=== PATIENT | female | born 1945 | race Caucasian/White ===

== ENCOUNTER → 2016-06-27 | Outpatient (CLI) | payer OTHER, MEDICARE ==
--- NOTE | 2016-06-27 13:57 | DI ---
KUB and UPRIGHT ABDOMEN, 06/27/2016 12:15 PM: Clinical History: Abdominal pain. Previous Exam: 10/20/2014. The patient has had extensive lumbar surgery. There is a gas-filled structure in the region of the pe lvic inlet that shows a small fluid collection. This most likely is in a loop of sigmoid colon althou gh there is no mucosal marking to determine if this is colon or small bowel. There is no other dilate d loops of large or small bowel present. On the upright film, there is motion artifact so tiny amount s of free air could be missed. There are no abnormal radiodensities. Readin. There is an unusual collection of gas in the midline at the pelvic inlet. I cannot tell if this i s in large or small bowel but there is no dilatation of either large or small bowel present. A crosst able lateral film may be of help along with followup films in 6 hours if the patient has persistent s ymptoms. If this patient has significant abdominal symptoms, then a CT scan with IV contrast would be recommended. 2. Status post extensive lumbar surgery from L2-L5.
--- NOTE | 2016-06-27 17:35 | DI ---
CT ABDOMEN SCAN WITHOUT IV CONTRAST, 06/27/2016 3:04 PM : Clinical History: Abdominal pain. Previous Exam: None at this facility. Scans are performed from the lower lung bases through the liver and kidneys without IV contrast. Sagi ttal and coronal reformatted images are generated. The lung bases are clear. The liver is normal. The gallbladder is grossly normal. Both adrenal glands are normal. There is a low-density spherical lesion in the superior and lateral margin of the spleen that is associated with a punctate calcification. Both kidneys are normal in size, shape, position a nd contour. There is no hydronephrosis or hydroureter. No renal or ureteral calculi are present. Ther e are no abnormal retrocrural or periaortic nodes. No ascites is present. There is inflammatory/infil trative change involving the mesentery in the anterior aspect of the abdomen, probably the greater om entum. Similar changes involve probably represents the lateral magnum. The pancreas is normal in size but the anterior margin of the body of the pancreas is associated with the mesentery that appears in flamed. READIN. Inflammatory/infiltrative changes are present in what probably represent the greater and lesser o mentum. The pancreas itself appears normal although it is contiguous with the mesentery that shows th e inflammatory/infiltrative change. 2. There is a roughly 15 mm spherical low-density lesion in the subcapsular region of the spleen tow elvis the upper half. This is also associated with a focus of calcification. CT PELVIS SCAN WITHOUT IV CONTRAST, 06/27/2016 3:04 PM : Clinical History: See above. Previous Exam: 04/13/2015. Scans are performed from the inferior margin of the liver and kidneys to the symphysis pubis without IV contrast. There is no free fluid collection and there is no adenopathy. The appendix is not visualized but ther e is no inflammatory mass either in the cecal tip or in the right lower quadrant. The small bowel, te rminal ileum, and ileocecal valve are normal. There is a 10 cm diameter spherical gas-filled collecti on just to the right of midline in the lower abdomen. This does have a single haustrum and presumably is a localized dilated portion of large bowel and less likely small bowel. It is contiguous with por tions of small bowel as well as the midportion of the sigmoid colon. Diverticula are present in the s igmoid colon without definite evidence of diverticulitis. There are no hernias. The uterus and both o varies are atrophic but normal. READIN. There is a 10 cm gas-filled spherical lesion in the lower abdomen just to the right of midline an d this is the same gas filled structure that was seen on the plain films. It does appear to have a fo ld that may represent a haustrum and therefore may be part of the sigmoid colon. There is only a mini mal amount of inflammatory/infiltrative change in the mesentery along the left lateral margin of this gas structure but this is probably extending from the inflammatory process seen in the upper abdomen associated with the mesentery. 2. If further evaluation is required, then a CT scan of the abdomen and pelvis with oral and rectal contrast and preferably with IV contrast if possible would be recommended.
== END ==
LOC: MOB RAD 12:32
DX: R10.84 Generalized abdominal pain (principal); R30.0 Dysuria
CPT/HCPCS: 74020; 74176; 87077; 87088; 87186

== ENCOUNTER 2016-06-28 15:34 | Emergency (ER) | payer OTHER, MEDICARE ==
[2016-06-28] MEDS ORDERED: Sodium Chloride 0.9% 1,000 ML PRIMARY IV ONE (15:44)
--- NOTE | 2016-06-28 15:52 | PDOC ---
Abdomen/Flank HPI - General Chief Complaint: Abdomen Pain Stated Complaint: abdominal pain Date Seen by Provider: 06/28/16 Time Seen by Provider: 15:47 Source: POSITIVE: Patient, RN/MD Exam Limitations: POSITIVE: No limitations Nurse's Notes Reviewed & Considered: Yes - History of Present Illness Initial Comments: Patient comes in today for evaluation of abdominal pain and elevated white count. Patient was seen at the infectious disease doctor's office, Dr. Alex Robertson, and was found to have an increase of her white count from 19,000 to 27, 000 today. She said increasing abdominal pain and discomfort since her CT scan done yesterday. CT scan was reported yesterday is equivocal. Patient denies any fever or chills or sweats, she does have epigastric abdominal pain that was initially sharp in nature, is now migrated to the right lower quadrant. She denies any nausea vomiting or diarrhea, no hematuria or dysuria, no rashes. Patient has a history of colovesical fistula and chronic urinary tract infections. Body Location Affected: REPORTS: Abdomen Timing: REPORTS: Changing Over Time, Getting Worse Duration: >24 hours Severity: Moderate Quality: REPORTS: "Pain", Sharpness, Throbbing Abdominal Pain Radiation: REPORTS: RLQ, Epigastric Context: REPORTS: None Modifying Factors: improves with: Nothing Associated Symptoms: REPORTS: Denies symptoms Similar Symptoms Previously: Yes Recent Care Received: REPORTS: Recently Seen Any Prior Injuries Related to Current Complaint?: No - Patient Home Medications Home Medications: Home Medications Albuterol Sulfate [Ventolin Hfa] 2 puff INH Q4-6H PRN #2 inhaler 05/29/15 Albuterol Neb Soln 0.083% 1 each NEB Q4-6H #30 vial 07/03/15 Mv,Ca,Min/Iron Fum/FA/Vit K [Essential Woman Tablet] 1 each PO DAILY 09/24/15 Potassium Chloride [K-Dur] 40 meq PO BID 09/24/15 Febuxostat [Uloric] 40 mg PO DAILY #30 10/04/15 Atorvastatin Calcium [Lipitor] 1 tab PO QHS #30 tab 11/15/15 predniSONE Tab [Deltasone Tab] 1 tab PO BID #60 tab 03/15/16 Digoxin 0.5 tab PO QD #30 tab 03/28/16 Clopidogrel Bisulfate [Plavix] 1 tab PO QD #30 tab 05/06/16 Furosemide 1 - 1.5 tab PO BID #75 tab 05/06/16 Montelukast Sodium [Singulair] 1 tab PO QD #30 tab 05/06/16 Omeprazole 1 cap PO QD #30 cap 06/14/16 Hydrocodone Bit/Acetaminophen [[place] 5-325 Tablet] 1 tab PO Q4-6H #60 tab - Patient Allergies Allergies/Adverse Reactions: Allergies Allergy/AdvReac Type Severity Reaction Status Date / Time aspirin Allergy Severe SHORTNESS Verified 06/28/16 15:45 OF BREATH Penicillins Allergy Severe Anaphylaxis Verified 06/28/16 15:45 lactose AdvReac DIARRHEA Verified 06/28/16 15:45 Past Medical History - heen HEENT History: Other (please comment) Additional HEENT History: Nasal Polyps, removed, WEARS GLASSES- glasses not here , as she has lost them Cardiovascular History: Hypertension, CHF, Hyperlipidemia Respiratory History: Asthma Gastrointestinal History: GERD, Irritable Bowel Syndrome Genitourinary History: Denies History Endocrine History: Denies History Musculoskeletal History: Arthritis, Gout, Back Pain, Back Injury, Joint Pain, Other (please comment) Prosthesis or Implant: No Additional Musculoskeletal History: BACK SURGERY IN January 2012 Neurological History: Denies History Blood Disorders: Denies History Psychiatric History: Denies History History of Sexually Transmitted Diseases: No Cancer History: Denies History History of MDRO: Yes History of Other Communicable Diseases: No Alcohol Use: Rarely Substance Use Type: None Previous Surgical History: Yes Type / Date of Surgery: Back surgery twice, the last time in 2011 they had to remove previous hardware, Nasal polypectomy ~1989, Appendectomy 1960, TONSILLECTOMY Anesthesia Reactions: No Malignant Hyperthermia: No Significant Family History: Heart disease, COPD Additional Family History: none ROS - Limitations ROS Limitations: No Limitations Constitution: REPORTS: Denies Symptoms Cardiovascular: REPORTS: Denies Cardiac Symptoms Respiratory: REPORTS: Denies Resp Symptoms Neurological: REPORTS: Denies Neuro Symptoms Gastrointestinal: REPORTS: Abdominal Pain Endocrine: REPORTS: Denies Symptoms Musculoskeletal: REPORTS: Denies MS Symptoms Genitourinary: REPORTS: Denies Symptoms Eyes: REPORTS: Denies Symptoms ENT: REPORTS: Denies Symptoms Skin: REPORTS: Denies Skin Symptoms Lympathic: REPORTS: Denies Lympathic Symptoms Immunologic: POSITIVE: Denies Symptoms Psychiatric: POSITIVE: Denies Psych Symptoms Abdominal/Flank Pain PE - General Appearance General Appearance: POSITIVE: Alert, Cooperative, No Acute Distress, No Evidence of Trauma - HEENT HEENT: POSITIVE: Head Inspection Nml, Eyes Inspection Nml, Ears Inspection Nml, Nose Inspection Nml, PERRL, EOMI - Neck Neck: POSITIVE: Normal Inspection, No Apparent Injury - Respiratory Respiratory: POSITIVE: No Respiratory Distress, Breath Sounds Normal, Chest Non- Tender - Cardiovascular Cardiovascular: POSITIVE: Regular Rate and Rhythm, Heart Sounds Normal - Chest Chest: POSITIVE: Non Tender - Abdomen Abdomen: Soft: (All Quadrants), Normal Bowel Sounds: (All Quadrants), No Splenomegaly: (All Quadrants), No Hepatomegaly: (All Quadrants), No Guarding: ( All Quadrants), No Rebound: (All Quadrants), No Palpable Pulse: (All Quadrants) , No Palpabale Mass: (All Quadrants), No Rigidity: (All Quadrants), Tenderness Noted: (RLQ), Distention: (All Quadrants) - Back Back: POSITIVE: Normal Inspection - Skin Skin: POSITIVE: Intact, Normal For Race, Warm, Dry, No Rash - Extremities Extremity: Non-Tender: (All Extremities), Normal ROM: (All Extremities), Normal Inspection: (All Extremities) - Neurological Neurological: POSITIVE: Affect Apporpriate, Oriented X3 - Psychological Psychiatric: POSITIVE: Affect Appropriate, Mood Appropriate Abdomen Progress - Results Reviewed by me Xrays/CTs/US Reviewed by me: Yes Discussed with Radiologist: Yes Lab Results Reviewed: Yes Lab Results:: Laboratory Results 06/28/16 06/28/16 06/28/16 Range/Units 16:02 16:05 17:15 WBC 25.04 H (4.8-10.8) 10^3/uL RBC 4.64 (4.20-5.40) 10^6/uL Hgb 11.9 L (12.0-16.0) g/dL Hct 37.2 (37.0-47.0) % MCV 80.2 L (81-99) FL MCH 25.6 L (27-31) PG MCHC 32.0 L (33-37) g/dL RDW Std Deviation 48.8 (39-50) fL RDW Coeff of Jackson 16.9 H (11.5-14.5) % Plt Count 257 (140-350) 10*3/uL MPV 11.0 (7.4-12.2) FL Immature Gran % (Auto) 0.7 (0-5) % Neut % (Auto) 86.4 H (50-80) % Lymph % (Auto) 5.3 L (10-50) % Terry % (Auto) 7.4 (5-15) % Eos % (Auto) 0 (0-8) % Baso % (Auto) 0.2 (0-1) % Immature Gran # (Auto) 0.18 10*3/UL Neut # (Auto) 21.63 10*3/UL Lymph # (Auto) 1.32 10*3/uL Terry # (Auto) 1.86 H (0.3-0.8) 10*3/UL Eos # (Auto) 0 10*3/UL Baso # (Auto) 0.05 10*3/UL WBC Morphology Comment See comments (NORM) Plt Morphology Comment Normal morphology (NORM) RBC Morph Comment Normal morphology (NORM) VBG pH 7.59 H (7.32-7.42) VBG pCO2 32 L (45-55) mmHg VBG HCO3 31 H (22-26) mmol/L VBG Base Excess 9 H (-2-2) MMOL/L Sodium 134 L (135-145) meq/L Potassium 3.5 L (3.8-5.2) meq/L Chloride 91 L (98-112) meq/L Carbon Dioxide 29 (23-33) meq/L Anion Gap 14 (5-20) BUN 16 (7-22) mg/dL Creatinine 0.6 (0.50-1.20) mg/dL Estimated GFR > 60 (>60 ml/min/1.73m(2)) BUN/Creatinine Ratio 26.66 H (6-20) Glucose 159 H (78-110) mg/dL Calculated Osmolality 281.0 (267-292) mOsm/kg Lactic Acid 2.4 H (0.70-2.10) MMOL/L Calcium 9.1 (8.7-10.7) mg/dL Magnesium 1.7 (1.6-2.4) mg/dL Total Bilirubin 0.8 (0.3-1.2) mg/dL AST 24 (8-39) IU/L ALT 33 (9-52) IU/L Alkaline Phosphatase 99 (38-126) IU/L Total Protein 6.5 (6.1-8.0) g/dL Albumin 3.5 (3.5-4.8) g/dL Globulin 3.0 (2.50-4.10) g/dL Albumin/Globulin Ratio 1.10 L (1.3-2.0) mg/g Amylase 64 (30-110) U/L Lipase 482 H (23-300) IU/L - Patient's Progress Pain Medication Addressed: POSITIVE: Not Applicable Re-examine Time: 17:15 Status: POSITIVE: Improved MDM / ED Course: The patient examined, IV started, but mostly, radiographic studies obtained. Patient received 1 L of normal saline, and Zofran. She stated her pain was a 3/ 10 and did not require pain medication. Laboratory findings: CBC shows white count elevated to greater than 25. CT scan shows inflammatory changes with dilated loop of bowel of uncertain etiology. Assessment: Abdominal pain with elevated white count and inflammatory changes per CT scan. Colovesicle fistula. Plan: Admission, Invanz, surgical consult. Patient refused admission. Based on the patient's clinical appearance I am discharging her with instructions to return in 24 hours for her next dose of Invanz, urine culture, and repeat lipase. Dr. Dugan is the on-call surgeon, had seen this patient in consultation here in the emergency department. He stated this is not an emergent surgical issue and she does not need his services. In addition he doesn't feel that we have adequate surgical coverage for the colovesical fistula that she needs repaired. - Consult Consult (If Yes, Name of Consulting MD & Time Called): Yes (Dr. Bynum 17:15) Consulting MD will see pt:: POSITIVE: [facility] [place] Admit Counseled: POSITIVE: Patient, RE: Lab Results, RE: Radiology Results, RE: DX Patient Care Time - Estimated PCT Patient Care Time (In Minutes): 45 Vital Signs - Recent Vital Signs Vital Signs: Vital Signs (Last 8 hours) Temp Pulse Resp BP Pulse Ox 06/28/16 15:53 97.1 F 96 12 105/71 93 - VS Reviewed Vital Signs Reviewed: Yes Discharge Clinical Impression: Abdominal pain Discharge Disposition: Discharged to Home Condition: Stable Follow Up With: CHANTAL SCHULTZ [Primary Care Provider] -
[2016-06-28 16:00] VITALS: RESP 12; TEMP 97.1
[2016-06-28] MEDS ORDERED: Ertapenem Inj 1 GM in Sodium Chloride 0.9% 100 ML IV SCH (16:00)
[2016-06-28] MEDS ORDERED: Sodium Chloride 0.9% 50 ML IV PRN (16:00)
[2016-06-28] MEDS ORDERED: HEPARIN 500 UNIT/5 ML SYRINGE FOR CENTRAL LINE IVP PRN (16:00)
[2016-06-28] MEDS ORDERED: NORMAL SALINE 10 ML SYRINGE FLUSH IVP PRN (16:00)
[2016-06-28 16:18] LABS: ASPARTATE AMINO TRANSFERASE 24 IU/L (8-39); BILIRUBIN,TOTAL 0.8 mg/dL (0.3-1.2); BLOOD UREA NITROGEN 16 mg/dL (7-22); BUN/CREATININE RATIO 26.66 (6-20); CALCIUM 9.1 mg/dL (8.7-10.7); CHLORIDE 91 meq/L (98-112); CREATININE 0.6 mg/dL (0.50-1.20); EOSINOPHILS % (AUTO) 0 % (0-8); EST GLOMERULAR FILTRATION > 60 (>60 ml/min/1.73m(2)); GLUCOSE 159 mg/dL (78-110); IMM GRAN# (AUTO) 0.18 10*3/UL; LACTATE 2.4 MMOL/L (0.70-2.10); MAGNESIUM 1.7 mg/dL (1.6-2.4); POTASSIUM 3.5 meq/L (3.8-5.2); RDW COEFFICIENT OF VARIATION 16.9 % (11.5-14.5); SODIUM 134 meq/L (135-145); TOTAL PROTEIN 6.5 g/dL (6.1-8.0)
[2016-06-28 16:20] LABS: BASOPHILS # (AUTO) 0.05 10*3/UL; BASOPHILS % (AUTO) 0.2 % (0-1); HEMATOCRIT 37.2 % (37.0-47.0); HEMOGLOBIN 11.9 g/dL (12.0-16.0); IMM GRAN % (AUTO) 0.7 % (0-5); LYMPHOCYTES # (AUTO) 1.32 10*3/uL; LYMPHOCYTES % (AUTO) 5.3 % (10-50); MEAN CORPUSCULAR HEMOGLOBIN 25.6 PG (27-31); MONOCYTES # (AUTO) 1.86 10*3/UL (0.3-0.8); MONOCYTES % (AUTO) 7.4 % (5-15); NEUTROPHILS # (AUTO) 21.63 10*3/UL; NEUTROPHILS % (AUTO) 86.4 % (50-80); RED BLOOD COUNT 4.64 10^6/uL (4.20-5.40); WHITE BLOOD COUNT 25.04 10^3/uL (4.8-10.8)
[2016-06-28 16:32] LABS: PLATELET MORPHOLOGY COMMENT NORMAL MORPHOLOGY (NORM)
[2016-06-28 17:22] LABS: AMYLASE 64 U/L (30-110)
--- NOTE | 2016-06-28 17:56 | DI ---
CT ABDOMEN SCAN WITH IV CONTRAST, 06/28/2016 3:44 PM : Clinical History: Abdominal pain. Elevated white count compared to 24 hours earlier. Previous Exam: 06/27/2016. Scans are performed from the lower lung bases through the liver and kidneys with IV contrast. 70 ml o f Isovue 300 was injected IV. No oral or rectal contrast was utilized, but the patient did receive lo w-density barium contrast orally at the end of the noncontrast study performed on 06/27/2016, in antic ipation of an IV contrast study on that day. The IV contrast study was not ordered. The lung bases are clear. The liver is normal. The gallbladder is grossly normal. Both adrenal glands and the spleen are unchanged. The previously noted 15 mm spherical low-density lesion with the perip heral calcification shows a CT density of approximately 15-16 Hounsfield units. Measurement of the le yaneth on the noncontrast study gives a CT value in the range of 16-17 Hounsfield units. This would imp ly that the lesion did not enhance and is of slightly higher density than water. It would be consiste nt with a cyst filled with proteinaceous debris. The pancreas in the region of the body may be slight ly less defined than the day before. The previously noted inflammatory/infiltrative change in the mes entery inferior to the stomach has decreased slightly but there is still persistence of that pattern at the level of the large gas bubble. Both kidneys are normal in size, shape, position and contour. T here is no hydronephrosis or hydroureter. No renal or ureteral calculi are present. There are no abno rmal retrocrural or periaortic nodes. No ascites is present. READIN. There may be slightly more peripancreatic inflammatory/infiltrative change that on the study from the day before, but this is marginal at most. The infiltrative/inflammatory change in the mesentery corresponding to the greater and lesser omentum is probably slightly less. 2. The remainder of the study is unchanged. The 15 mm lesion in the spleen shows no change in densit y in this consistent with a cyst filled with proteinaceous debris. CT PELVIS SCAN WITH IV CONTRAST, 06/28/2016 3:44 PM: Clinical History: See above. Previous Exam: 06/27/2016. Scans are performed from just superior to the umbilicus to the symphysis pubis with IV contrast. This is the same bolus of contrast used for the CT scans of the abdomen. The gas-filled structure in the right lower quadrant is basically unchanged. There does appear to be a haustrum and it remains contiguous with a portion of the sigmoid colon. The anterior portion of the gas-filled structure is thicker and less defined than on the day before and this was suggest inflamm atory changes have developed. The exact origin of this gas bubble still cannot be definitely assigned to either the colon or small bowel. The appendix is not identified with certainty but there is no in flammatory mass in the cecum or in the right lower quadrant. The small bowel, terminal ileum, and ile ocecal valve are normal. The remainder of the colon is unremarkable. Sigmoid colon diverticula are pr esent without interval development of diverticulitis. There are no hernias but there is extensive jaiden stases recti. The uterus and both ovaries are atrophic but normal. There is an air-fluid level in the bladder in this patient has a known colovesicular fistula. READIN. The gas-filled structure in the right lower quadrant show slightly more inflammatory/infiltrative change since the day before but the exact origin of this lesion is uncertain. 2. There is sigmoid colon diverticulosis but definite diverticulitis is felt not to be present. 3. Gas is present in the bladder consistent with the history of a known colovesicular fistula.
--- NOTE | 2016-06-28 19:46 | CONSULT ---
Consult Note - Consult Consult Date: 06/28/16 Reason for Consult: Other (Emergency room consultation.) Requesting Physician: Dr. Bae Primary Care Provider: Leonardo Coppola MD - History of Present Illness History of Present Illness: Patient is a 71-year-old female who reports problem started yesterday. She had a sharp epigastric pain with pain to her back. She felt quite bloated. She went to the open access clinic and was evaluated. Her white count was elevated but it is chronically elevated. She had a CAT scan last night which showed some inflammatory changes in the upper abdomen near the pancreas but no evidence of pancreatitis. There was a large 10 cm air bubble near her sigmoid colon in the lower abdomen. She had a urine specimen sent at the clinic. It shows greater than 100,000 gram-negative rods. Patient tells me she has not had a bladder infection for some time. She was not admitted last night but followed up with infectious disease today. Apparently because her white count elevation she was told to be evaluated at the emergency room. 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 CT scan today shows this large air bubble which is persistent. There is still air in her bladder. There is more inflammatory changes in the lower abdomen near this air bubble. At the present time he feels okay. She does feel bloated. She has no appetite. She reports her bowels have been moving. She has some abdominal tenderness but it is less than yesterday. Patient has had a known colovesical fistula since late 2014. She was scheduled for an operation in [place] by general surgery and urology but it was canceled because of an ejection fraction in the 25% range. She is scheduled to see a surgeon on Friday for evaluation of her colovesical fistula. Dr. Coppola's note from May notes her ejection fraction is now 55%. Patient was on Eliquis but is no longer. She is on Plavix at this time. Patient has had recurrent bouts of diverticulitis. To my review this air pocket near her sigmoid colon was present in April 2015. It was not present in 2012 when she had a CT scan for diverticulitis. It was smaller. It appears to be a saccular collection of air. There is no free air. The radiologist is not available to review this but I'm sure this air collection was there then. There is air in her bladder and that has been present on her last several CAT scans. Of note all of her CT scans show a lack of abdominal musculature. She has a wide diastases. She has never had abdominal surgery. It appears she has a large hernia in her lower abdomen. Patient's white count has been chronically elevated. On May 272015 and was 21,000. On June 05 was 20,000, on June 12 was 21,000, this morning at 10 AM it was 30,000, this afternoon at 4 PM its 25,000. Patient is on chronic steroids. The emergency room physician ordered a lipase which is elevated at 482. Again her urine from yesterday shows 100,000 gram-negative rods. Identification and sensitivities are still pending. Patient does not appear to have an acute surgical problem at this time. She's been given a dose of Invanz. She has an elevation of her lipase which may indicate a mild pancreatitis. She has a known colovesical fistula. She has a bladder infection at this time. She does not appear toxic. Patient tells me infectious disease doctor that she should be hospitalized for antibiotics over the weekend and then discharged for outpatient follow-up to see the surgeon in [place] on Friday. Because of her multiple problems she is not a candidate for surgical intervention at our institution. We do not have the resources to adequately care for her. I told the emergency room doctor it is up to him and the hospitalist whether they want to admit her or transfer her at this time. It appears she would benefit from bowel rest, sequential lab tests, and IV antibiotics. Review of Systems - Gastrointestinal Gastrointestinal / Abdominal: REPORTS: Abdominal Pain Past Medical History Medical History: 1. History asthma Quit smoking 20 years. 2. History of gout. 3. History of for recent admission to the hospital for cellulitis was transferred to [facility]. 4. Congestive heart failure secondary to systolic dysfunction. 5. Coronary artery disease had a stent inserted recently at [facility]. 6. History of acute diverticulitis last year, it sounded that she has a bladder fistula and she was supposed to have surgery this July but was canceled because of heart failure. #7 hypertension. #8 Diastases rectus. #9 chronic colovesical fistula. #10 history of diverticulitis. 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 Tonsillectomy and adenoidectomy. Appendectomy. Colonoscopy. Upper endoscopy. Sinus surgery. Tobacco Use: Never Smoker Substance Use Type: None Medication / Allergies Home Medications: Home Medications Medication Instructions Recorded Confirmed Type Albuterol Sulfate [Ventolin Hfa] 2 puff INH Q4-6H PRN #2 inhaler 05/29/15 Clinic Albuterol Neb Soln 0.083% 1 each NEB Q4-6H #30 vial 07/03/15 06/28/16 Clinic Mv,Ca,Min/Iron Fum/FA/Vit K 1 each PO DAILY 09/24/15 06/28/16 History [Essential Woman Tablet] Potassium Chloride [K-Dur] 40 meq PO BID 09/24/15 06/28/16 History Febuxostat [Uloric] 40 mg PO DAILY #30 10/04/15 06/28/16 Clinic Atorvastatin Calcium [Lipitor] 1 tab PO QHS #30 tab 11/15/15 06/28/16 Clinic predniSONE Tab [Deltasone Tab] 1 tab PO BID #60 tab 03/15/16 06/28/16 Clinic Digoxin 0.5 tab PO QD #30 tab 03/28/16 06/28/16 Clinic Clopidogrel Bisulfate [Plavix] 1 tab PO QD #30 tab 05/06/16 06/28/16 Clinic Furosemide 1 - 1.5 tab PO BID #75 tab 05/06/16 06/28/16 Clinic Montelukast Sodium [Singulair] 1 tab PO QD #30 tab 05/06/16 06/28/16 Clinic Omeprazole 1 cap PO QD #30 cap 06/14/16 06/28/16 Clinic Hydrocodone Bit/Acetaminophen 1 tab PO Q4-6H #60 tab 06/17/16 06/28/16 Clinic [Roxie 5-325 Tablet] Allergies/Adverse Reactions: Allergies Allergy/AdvReac Type Severity Reaction Status Date / Time aspirin Allergy Severe SHORTNESS Verified 06/28/16 15:45 OF BREATH Penicillins Allergy Severe Anaphylaxis Verified 06/28/16 15:45 lactose AdvReac DIARRHEA Verified 06/28/16 15:45 Exam - Vitals Vital Signs: Vital Signs Temperature 97.1 F Temperature Source Temporal Artery Scan Pulse Rate [Pulse Oximeter] 96 Respiratory Rate 12 Blood Pressure [Left Arm] 105/71 Pulse Ox 93 Oxygen Delivery Method Room Air Height 5 ft 7 in Weight 75.75 kg - General General Appearance: POSITIVE: No Acute Distress, Cooperative - Respiratory Respiratory Exam: POSITIVE: Clear to Auscultation - Bilaterally, Breathing Non Labored - Cardiovascular Cardiovascular Exam: POSITIVE: RRR, No Murmur - GI/Abdominal GI/Abdominal Exam: POSITIVE: Normal Bowel Sounds, Soft Additional GI/Abdominal Exam Details: Abdomen is protuberant. No significant abdominal wall musculature. She has a protuberant abdomen. It is mildly diffusely tender. No peritoneal signs. She is quite obese. - Rectal Rectal Exam: POSITIVE: Deferred - Neurological Neurological Exam: POSITIVE: Alert, Oriented x 3 - Psychiatric Psychiatric Exam: POSITIVE: Normal Affect, Normal Mood - Integumentary Integumentary Exam: POSITIVE: Normal Color, Warm, Dry Results - Labs CBC and BMP: 06/28/16 16:05 06/28/16 16:05 Labs - Last 24 Hours: Laboratory Results 06/28/16 06/28/16 06/28/16 Range/Units 16:02 16:05 17:15 WBC 25.04 H (4.8-10.8) 10^3/uL RBC 4.64 (4.20-5.40) 10^6/uL Hgb 11.9 L (12.0-16.0) g/dL Hct 37.2 (37.0-47.0) % MCV 80.2 L (81-99) FL MCH 25.6 L (27-31) PG MCHC 32.0 L (33-37) g/dL RDW Std Deviation 48.8 (39-50) fL RDW Coeff of Jackson 16.9 H (11.5-14.5) % Plt Count 257 (140-350) 10*3/uL MPV 11.0 (7.4-12.2) FL Immature Gran % (Auto) 0.7 (0-5) % Neut % (Auto) 86.4 H (50-80) % Lymph % (Auto) 5.3 L (10-50) % Page % (Auto) 7.4 (5-15) % Eos % (Auto) 0 (0-8) % Baso % (Auto) 0.2 (0-1) % Immature Gran # (Auto) 0.18 10*3/UL Neut # (Auto) 21.63 10*3/UL Lymph # (Auto) 1.32 10*3/uL Page # (Auto) 1.86 H (0.3-0.8) 10*3/UL Eos # (Auto) 0 10*3/UL Baso # (Auto) 0.05 10*3/UL WBC Morphology Comment See comments (NORM) Plt Morphology Comment Normal morphology (NORM) RBC Morph Comment Normal morphology (NORM) VBG pH 7.59 H (7.32-7.42) VBG pCO2 32 L (45-55) mmHg VBG HCO3 31 H (22-26) mmol/L VBG Base Excess 9 H (-2-2) MMOL/L Sodium 134 L (135-145) meq/L Potassium 3.5 L (3.8-5.2) meq/L Chloride 91 L (98-112) meq/L Carbon Dioxide 29 (23-33) meq/L Anion Gap 14 (5-20) BUN 16 (7-22) mg/dL Creatinine 0.6 (0.50-1.20) mg/dL Estimated GFR > 60 (>60 ml/min/1.73m(2)) BUN/Creatinine Ratio 26.66 H (6-20) Glucose 159 H (78-110) mg/dL Calculated Osmolality 281.0 (267-292) mOsm/kg Lactic Acid 2.4 H (0.70-2.10) MMOL/L Calcium 9.1 (8.7-10.7) mg/dL Magnesium 1.7 (1.6-2.4) mg/dL Total Bilirubin 0.8 (0.3-1.2) mg/dL AST 24 (8-39) IU/L ALT 33 (9-52) IU/L Alkaline Phosphatase 99 (38-126) IU/L Total Protein 6.5 (6.1-8.0) g/dL Albumin 3.5 (3.5-4.8) g/dL Globulin 3.0 (2.50-4.10) g/dL Albumin/Globulin Ratio 1.10 L (1.3-2.0) mg/g Amylase 64 (30-110) U/L Lipase 482 H (23-300) IU/L - Imaging Status: Image Reviewed by Me (And discussed with the radiologist.), Report Reviewed by Me Assessment and Plan - Patient Problems (1) Urinary tract infection Current Visit: Yes Status: Acute Priority: High Diagnosis Date: 06/27/16 Comment: Greater than 100,000 gram-negative rods. Had a Proteus urinary tract infection in the past. He has been given a dose of Invanz. (2) Elevated lipase Current Visit: Yes Status: Acute Priority: Medium Diagnosis Date: 06/28/16 Comment: Some of her symptoms sound like a mild pancreatitis. Some inflammatory changes were seen in the pancreas on the CT scan. Would probably benefit from bowel rest and serial labs. (3) Colovesical fistula Current Visit: Yes Status: Chronic Priority: Low Comment: Chronic. Supposed to see a surgeon in [place] on Friday. This is been present for more than a year. (4) History of diverticulitis Current Visit: Yes Status: Chronic Priority: Low Comment: Some inflammatory changes near the colon. Possible early diverticulitis. (5) abnormal air collection in the abdomen Current Visit: Yes Status: Chronic Priority: Medium Comment: This also has been present for more than a year. It appears to be a saccular collection of air near her sigmoid colon. No evidence of free air. Certainly not an acute surgical abdomen. See history of present illness. - Time Time Spent With Patient: Greater Than 35 Mintues (I spent greater than an hour and a half reviewing the patient's clinic notes, current and past CAT scans, examining the patient and preparing this report. I also discussed this case with the hospitalist and the emergency room physician.)
== END 2016-06-28 21:04 | disposition home or self-care (01) ==
LOC: ER 15:34
DX: R10.13 Epigastric pain (principal); I10 Essential (primary) hypertension; R10.31 Right lower quadrant pain; E78.5 Hyperlipidemia, unspecified; I50.9 Heart failure, unspecified; Z87.440 Personal history of urinary (tract) infections
CPT/HCPCS: 36415; 74177; 80053; 82150; 82803; 83605; 83690; 83735; 85007; 85025; 87040; 96365; 99283; J1335; J7030; J7050

== ENCOUNTER → 2016-06-28 | Outpatient (CLI) | payer OTHER, MEDICARE ==
[2016-06-28 10:44] LABS: RDW COEFFICIENT OF VARIATION 17.1 % (11.5-14.5)
[2016-06-28 10:50] LABS: AMYLASE 81 U/L (30-110); ASPARTATE AMINO TRANSFERASE 32 IU/L (8-39); BLOOD UREA NITROGEN 15 mg/dL (7-22); CALCIUM 9.4 mg/dL (8.7-10.7); CHLORIDE 93 meq/L (98-112); CREATININE 0.5 mg/dL (0.50-1.20); EST GLOMERULAR FILTRATION > 60 (>60 ml/min/1.73m(2)); GLUCOSE 150 mg/dL (78-110); HEMATOCRIT 39.4 % (37.0-47.0); HEMOGLOBIN 12.5 g/dL (12.0-16.0); MEAN CORPUSCULAR HEMOGLOBIN 25.5 PG (27-31); MEAN CORPUSCULAR HGB CONC 31.7 g/dL (33-37); POTASSIUM 3.6 meq/L (3.8-5.2); RED BLOOD COUNT 4.91 10^6/uL (4.20-5.40); SODIUM 135 meq/L (135-145); TOTAL PROTEIN 6.8 g/dL (6.1-8.0)
[2016-06-28 11:05] LABS: PLATELET MORPHOLOGY COMMENT NORMAL MORPHOLOGY (NORM)
[2016-06-28 11:10] LABS: BAND NEUTROPHILS % 4 % (0-10); LYMPHOCYTES % (MANUAL) 5 % (10-50); MONOCYTES % (MANUAL) 4 % (0-12); NEUTROPHILS % (MANUAL) 87 % (50-80)
[2016-06-28 11:11] LABS: BASOPHILS % (MANUAL) 0 % (0-1); EOSINOPHILS % (MANUAL) 0 % (0-8)
== END ==
LOC: LAB 10:15
PROVIDERS: ATTEND Internal Medicine Infectious Disease
DX: R10.84 Generalized abdominal pain (principal); R14.0 Abdominal distension (gaseous)
CPT/HCPCS: 36415; 80053; 82150; 83690; 85007

== ENCOUNTER → 2016-08-06 | Outpatient (CLI) | payer OTHER, MEDICARE ==
[2016-08-06 16:33] LABS: HEMATOCRIT 35.6 % (37.0-47.0); HEMOGLOBIN 10.8 g/dL (12.0-16.0); MEAN CORPUSCULAR HEMOGLOBIN 24.1 PG (27-31); MEAN CORPUSCULAR HGB CONC 30.3 g/dL (33-37); MEAN PLATELET VOLUME 11.9 FL (7.4-12.2); RDW COEFFICIENT OF VARIATION 16.8 % (11.5-14.5); RED BLOOD COUNT 4.49 10^6/uL (4.20-5.40); WHITE BLOOD COUNT 15.99 10^3/uL (4.8-10.8)
[2016-08-06 16:44] LABS: HEMOGLOBIN A1C 6.44 % (4.2-6.0); MEAN BLOOD GLUCOSE (CALC) 128.452 mg/dL
[2016-08-06 16:52] LABS: ASPARTATE AMINO TRANSFERASE 21 IU/L (8-39); BILIRUBIN,TOTAL 0.4 mg/dL (0.3-1.2); BLOOD UREA NITROGEN 26 mg/dL (7-22); BUN/CREATININE RATIO 43.33 (6-20); CALCIUM 10.1 mg/dL (8.7-10.7); CHLORIDE 100 meq/L (98-112); CREATININE 0.6 mg/dL (0.50-1.20); EST GLOMERULAR FILTRATION > 60 (>60 ml/min/1.73m(2)); GLUCOSE 106 mg/dL (78-110); POTASSIUM 4.7 meq/L (3.8-5.2); SODIUM 139 meq/L (135-145); TOTAL PROTEIN 6.6 g/dL (6.1-8.0)
[2016-08-06 17:36] LABS: PLATELET MORPHOLOGY COMMENT NORMAL MORPHOLOGY (NORM)
[2016-08-06 17:37] LABS: BAND NEUTROPHILS % 2 % (0-10); BASOPHILS % (MANUAL) 0 % (0-1); EOSINOPHILS % (MANUAL) 0 % (0-8); LYMPHOCYTES % (MANUAL) 7 % (10-50); METAMYELOCYTES % 0 %; MONOCYTES % (MANUAL) 4 % (0-12); MYELOCYTES % 0 %; NEUTROPHILS % (MANUAL) 87 % (50-80); PROMYELOCYTES % 0 %
== END ==
LOC: MOB LAB 14:53
DX: E11.9 Type 2 diabetes mellitus without complications (principal); K65.1 Peritoneal abscess; M10.9 Gout, unspecified; I10 Essential (primary) hypertension; E78.5 Hyperlipidemia, unspecified
CPT/HCPCS: 36415; 80053; 83036; 84550; 85007

== ENCOUNTER → 2016-08-29 | Outpatient (CLI) | payer OTHER, MEDICARE | LOC: MMPC 09:00 | DX: A31.8 Other mycobacterial infections (principal); M10.9 Gout, unspecified; R73.9 Hyperglycemia, unspecified; E55.9 Vitamin D deficiency, unspecified; J45.909 Unspecified asthma, uncomplicated; I25.10 Atherosclerotic heart disease of native coronary artery without angina pectoris; I48.0 Paroxysmal atrial fibrillation; E78.5 Hyperlipidemia, unspecified; E79.0 Hyperuricemia without signs of inflammatory arthritis and tophaceous disease | CPT/HCPCS: 99213; G0463 ==

== ENCOUNTER → 2016-09-16 | Outpatient (CLI) | payer OTHER, MEDICARE ==
[2016-09-16 13:17] LABS: BLOOD UREA NITROGEN 21 mg/dL (7-22); CALCIUM 9.1 mg/dL (8.7-10.7); EST GLOMERULAR FILTRATION > 60 (>60 ml/min/1.73m(2))
[2016-09-16 14:23] LABS: HEMATOCRIT 34.6 % (37.0-47.0); HEMOGLOBIN 10.3 g/dL (12.0-16.0); MEAN CORPUSCULAR HGB CONC 29.8 g/dL (33-37); MEAN CORPUSCULAR VOLUME 77.2 FL (81-99); MEAN PLATELET VOLUME 11.6 FL (7.4-12.2); RED BLOOD COUNT 4.48 10^6/uL (4.20-5.40)
[2016-09-16 14:24] LABS: BASOPHILS % (AUTO) 0.5 % (0-1); EOSINOPHILS % (AUTO) 0.2 % (0-8); LYMPHOCYTES # (AUTO) 0.87 10*3/uL; NEUTROPHILS # (AUTO) 10.81 10*3/UL; NEUTROPHILS % (AUTO) 82.7 % (50-80)
[2016-09-16 14:25] LABS: BASOPHILS # (AUTO) 0.06 10*3/UL; EOSINOPHILS # (AUTO) 0.02 10*3/UL; MONOCYTES # (AUTO) 0.79 10*3/UL (0.3-0.8); WBC MORPHOLOGY COMMENT NORMAL MORPHOLOGY (NORM)
[2016-09-16 14:26] LABS: PLATELET MORPHOLOGY COMMENT NORMAL MORPHOLOGY (NORM); RBC MORPHOLOGY COMMENT SEE COMMENTS (NORM)
== END ==
LOC: MOB LAB 11:19
DX: D50.9 Iron deficiency anemia, unspecified (principal); I50.21 Acute systolic (congestive) heart failure; I48.0 Paroxysmal atrial fibrillation; A31.8 Other mycobacterial infections; I25.10 Atherosclerotic heart disease of native coronary artery without angina pectoris; J45.909 Unspecified asthma, uncomplicated; I10 Essential (primary) hypertension; E78.5 Hyperlipidemia, unspecified; E55.9 Vitamin D deficiency, unspecified; E79.0 Hyperuricemia without signs of inflammatory arthritis and tophaceous disease
CPT/HCPCS: 36415; 80048; 80162; 82728; 83540; 83550; 83880; 85025; 99213; G0463

== ENCOUNTER → 2016-09-24 | Outpatient (CLI) | payer OTHER, MEDICARE ==
[~2016-09-24] MED LIST: ALBUTEROL SULFATE 2.5 MG/3 ML NEB ONE
== END ==
LOC: RT 11:08
DX: A31.8 Other mycobacterial infections (principal)
CPT/HCPCS: 94640

== ENCOUNTER 2016-10-01 09:09 | Outpatient (CLI) | payer OTHER, MEDICARE ==
[~2016-10-01 09:09] MED LIST changes: -ALBUTEROL SULFATE 2.5 MG/3 ML NEB ONE; +HEPARIN 500 UNIT/5 ML SYRINGE FOR CENTRAL LINE IVP PRN; +Iron Sucrose Inj 500 MG in Sodium Chloride 0.9% 250 ML IV ONE; +LIDOCAINE W/ SODIUM BICARB 0.5 ML SYR SUBD PRN; +NORMAL SALINE 10 ML SYRINGE FLUSH IVP PRN
[2016-10-01 10:17] VITALS: RESP 20; TEMP 97.8
== END 2016-10-01 16:00 | disposition home or self-care (01) ==
LOC: IV THERAPY 09:09
PROVIDERS: ATTEND Family Medicine
DX: D50.9 Iron deficiency anemia, unspecified (principal)
CPT/HCPCS: 96365; 96366; 99211; J1756; J7050

== ENCOUNTER → 2016-10-02 | Outpatient (CLI) | payer OTHER, MEDICARE | LOC: MMPC 11:11 | DX: A31.8 Other mycobacterial infections (principal); I50.21 Acute systolic (congestive) heart failure; E79.0 Hyperuricemia without signs of inflammatory arthritis and tophaceous disease; J45.909 Unspecified asthma, uncomplicated; I25.10 Atherosclerotic heart disease of native coronary artery without angina pectoris; I48.0 Paroxysmal atrial fibrillation; E66.9 Obesity, unspecified; E78.5 Hyperlipidemia, unspecified; E55.9 Vitamin D deficiency, unspecified; D50.9 Iron deficiency anemia, unspecified | CPT/HCPCS: 99213; G0463 ==

== ENCOUNTER 2016-10-10 13:17 | Outpatient (CLI) | payer OTHER, MEDICARE ==
[2016-10-10] MEDS ORDERED: NORMAL SALINE 10 ML SYRINGE FLUSH IVP PRN (13:24)
[2016-10-10 13:30] VITALS: RESP 18; TEMP 98.3
[2016-10-10] MEDS ORDERED: Iron Sucrose Inj 500 MG in Sodium Chloride 0.9% 250 ML IV ONE (13:45)
== END 2016-10-10 17:00 | disposition home or self-care (01) ==
LOC: LAB 13:17 → IV THERAPY 13:17
DX: D50.9 Iron deficiency anemia, unspecified (principal)
CPT/HCPCS: 96365; 96366; 99211; J1756; J7050

== ENCOUNTER → 2016-10-21 | Outpatient (CLI) | payer OTHER, MEDICARE ==
--- NOTE | 2016-10-21 10:23 | DI ---
LEFT SHOULDER, 10/21/2016 9:24 AM: Clinical History: Acute left shoulder pain. Previous Exam: None at this facility. 3 views are submitted. There is no acute soft tissue, osseous, or joint abnormality. There is a calci fic density in the region of the bicipital groove seen only on the axillary view and this may represe nt calcific tendinitis. Because there are some calcifications at the tip of the acromion, those calci fications may be superimposed over the area of the bicipital groove. Soft tissue calcifications are p resent in proximity to the cortex of the proximal humeral shaft anterolaterally. These calcifications may be related to prior trauma or possibly calcified phleboliths. The visualized portions of the lef t lung and apex are normal. Readin. There is a calcific density in proximity to the bicipital groove on the axillary projection. This may represent calcific tendinitis or possibly bony spurring associated with the acromion. 2. The remainder of the examination is normal.
== END ==
LOC: MOB LAB 09:25
DX: M25.512 Pain in left shoulder (principal)
CPT/HCPCS: 73030

== ENCOUNTER → 2016-10-29 | Outpatient (CLI) | payer OTHER, MEDICARE | LOC: MMPC 10:00 | PROVIDERS: ATTEND Physician Assistant | DX: S46.912A Strain of unspecified muscle, fascia and tendon at shoulder and upper arm level, left arm, initial encounter (principal); M75.42 Impingement syndrome of left shoulder | CPT/HCPCS: 99213; G0463 ==

== ENCOUNTER → 2016-10-30 | Outpatient (CLI) | payer OTHER, MEDICARE ==
[2016-10-30 11:53] LABS: BLOOD UREA NITROGEN 19 mg/dL (7-22); CALCIUM 8.9 mg/dL (8.7-10.7); EST GLOMERULAR FILTRATION > 60 (>60 ml/min/1.73m(2)); URIC ACID 6.3 mg/dl (2.5-7.5)
[2016-10-30 12:09] LABS: BASOPHILS # (AUTO) 0.14 10*3/UL; BASOPHILS % (AUTO) 0.7 % (0-1); EOSINOPHILS # (AUTO) 0.08 10*3/UL; EOSINOPHILS % (AUTO) 0.4 % (0-8); HEMATOCRIT 41.6 % (37.0-47.0); MEAN CORPUSCULAR HEMOGLOBIN 25.9 PG (27-31); MEAN CORPUSCULAR HGB CONC 31.3 g/dL (33-37); MEAN CORPUSCULAR VOLUME 82.9 FL (81-99); NEUTROPHILS # (AUTO) 16.78 10*3/UL; NEUTROPHILS % (AUTO) 83.6 % (50-80); PLATELET MORPHOLOGY COMMENT NORMAL MORPHOLOGY (NORM); RBC MORPHOLOGY COMMENT SEE COMMENTS (NORM); RED BLOOD COUNT 5.02 10^6/uL (4.20-5.40); WBC MORPHOLOGY COMMENT NORMAL MORPHOLOGY (NORM)
== END ==
LOC: MOB LAB 10:45
DX: R73.9 Hyperglycemia, unspecified (principal); M10.9 Gout, unspecified; D64.9 Anemia, unspecified; L97.529 Non-pressure chronic ulcer of other part of left foot with unspecified severity; A31.8 Other mycobacterial infections; E78.5 Hyperlipidemia, unspecified; I10 Essential (primary) hypertension; I50.21 Acute systolic (congestive) heart failure; J45.909 Unspecified asthma, uncomplicated; I25.10 Atherosclerotic heart disease of native coronary artery without angina pectoris; E66.9 Obesity, unspecified; E55.9 Vitamin D deficiency, unspecified; M15.8 Other polyosteoarthritis
CPT/HCPCS: 36415; 80048; 84550; 85025; 99213; G0463

== ENCOUNTER → 2016-11-13 | Outpatient (CLI) | payer OTHER, MEDICARE | LOC: MMPC 11:11 | DX: A31.8 Other mycobacterial infections (principal); R73.9 Hyperglycemia, unspecified; I25.10 Atherosclerotic heart disease of native coronary artery without angina pectoris; I50.21 Acute systolic (congestive) heart failure; J45.909 Unspecified asthma, uncomplicated; E66.9 Obesity, unspecified; E55.9 Vitamin D deficiency, unspecified; E78.5 Hyperlipidemia, unspecified; I48.91 Unspecified atrial fibrillation | CPT/HCPCS: 83037; 99213; G0463 ==

== ENCOUNTER → 2016-11-27 | Outpatient (CLI) | payer OTHER, MEDICARE | LOC: MMPC 10:00 | PROVIDERS: ATTEND Physician Assistant | DX: M75.42 Impingement syndrome of left shoulder (principal) | CPT/HCPCS: 99212; G0463 ==

== ENCOUNTER → 2016-12-09 | Outpatient (CLI) | payer OTHER, MEDICARE ==
[~2016-12-09] MED LIST changes: +ALBUTEROL SULFATE 2.5 MG/3 ML NEB ONE; -HEPARIN 500 UNIT/5 ML SYRINGE FOR CENTRAL LINE IVP PRN; -Iron Sucrose Inj 500 MG in Sodium Chloride 0.9% 250 ML IV ONE; -LIDOCAINE W/ SODIUM BICARB 0.5 ML SYR SUBD PRN; -NORMAL SALINE 10 ML SYRINGE FLUSH IVP PRN
== END ==
LOC: RT 10:46
DX: J44.9 Chronic obstructive pulmonary disease, unspecified (principal)
CPT/HCPCS: 94640

== ENCOUNTER → 2016-12-24 | Outpatient (CLI) | payer OTHER, MEDICARE ==
--- NOTE | 2016-12-24 12:47 | DI ---
XR ELBOW COMPLETE MIN 3VW,12/24/2016 12:17 PM: Clinical History: Right elbow pain. Previous Exam: January 08, 2014 Findings: 3 views of the right elbow are obtained, and demonstrate anatomic alignment without fractures. There are some calcifications within the posterior soft tissues. There is no evidence of elbow joint effusion. There is no fracture identified. Impression: No acute fractures identified. If pain persists or worsens, consider repeat imaging in 7-10 days or MRI.
== END ==
LOC: MOB RAD 12:19
PROVIDERS: ATTEND Physician Assistant
DX: M25.521 Pain in right elbow (principal)
CPT/HCPCS: 73080; 99212

== ENCOUNTER → 2016-12-27 | Outpatient (CLI) | payer OTHER, MEDICARE | LOC: MMPC 11:11 | DX: M70.21 Olecranon bursitis, right elbow (principal); J45.909 Unspecified asthma, uncomplicated; A31.8 Other mycobacterial infections; I50.21 Acute systolic (congestive) heart failure; I25.10 Atherosclerotic heart disease of native coronary artery without angina pectoris; R73.9 Hyperglycemia, unspecified; E78.5 Hyperlipidemia, unspecified; E55.9 Vitamin D deficiency, unspecified | CPT/HCPCS: 99213; G0463 ==

== ENCOUNTER 2017-01-02 11:52 | Emergency (ER) | payer OTHER, MEDICARE ==
[2017-01-02] MEDS ORDERED: Sodium Chloride 0.9% 1,000 ML PRIMARY IV ONE ×2 (12:09→21:30)
[2017-01-02] MEDS ORDERED: NORMAL SALINE 10 ML SYRINGE FLUSH IVP PRN (12:09)
--- NOTE | 2017-01-02 12:24 | EKG ---
[address] [place] [address] Measurements Intervals Lambert Rate: 108 P: CT: 0 QRS: -28 QRSD: 152 T: 36 QT: 304 QTc: 368 Interpretive Statements ATRIAL FIBRILLATION WITH RAPID VENTRICULAR RESPONSE BORDERLINE LEFT AXIS DEVIATION [QRS AXIS < -20] RIGHT BUNDLE BRANCH BLOCK [120+ ms QRS DURATION, UPRIGHT V1, 40+ ms S IN I/aVL/V4/V5/V6] POSSIBLE LEFT VENTRICULAR HYPERTROPHY [VOLTAGE CRITERIA PLUS LAE OR QRS WIDENING] ST DEPRESSION, CONSIDER SUBENDOCARDIAL INJURY [0.1+ mV ST DEPRESSION] Compared to ECG 03/19/2016 17:00:06 Atrial flutter no longer present Ventricular premature complex(es) no longer present ST (T wave) deviation still present Electronically Signed On 01-02-17 13:15:09 MDT by Leonardo Polk MD [email or web address]
[2017-01-02 12:50] LABS: HEMATOCRIT 37.8 % (37.0-47.0); HEMOGLOBIN 12.3 g/dL (12.0-16.0); MEAN CORPUSCULAR HEMOGLOBIN 28.4 PG (27-31); MEAN CORPUSCULAR HGB CONC 32.5 g/dL (33-37); MEAN CORPUSCULAR VOLUME 87.3 FL (81-99); MEAN PLATELET VOLUME 10.7 FL (7.4-12.2); RED BLOOD COUNT 4.33 10^6/uL (4.20-5.40)
[2017-01-02] MEDS ORDERED: Sodium Chloride 0.9% 500 ML PRIMARY IV ONE (12:59)
[2017-01-02 13:03] LABS: BLOOD UREA NITROGEN 13 mg/dL (7-22); CALCIUM 8.2 mg/dL (8.7-10.7); EST GLOMERULAR FILTRATION > 60 (>60 ml/min/1.73m(2)); MAGNESIUM 1.4 mg/dL (1.6-2.4)
--- NOTE | 2017-01-02 13:12 | PDOC ---
General Adult HPI - General Chief Complaint: General Medical Stated Complaint: GENERAL MALAISE Date Seen by Provider: 01/02/17 Time Seen by Provider: 12:00 Source: POSITIVE: Patient Exam Limitations: POSITIVE: No limitations Nurse's Notes Reviewed & Considered: Yes EMS Report Reviewed & Considered: Verbal - History of Present Illness Initial Comment: The patient is a 71-year-old female who is brought to the emergency department by ambulance with increased weakness and general malaise. She reports that for the past several days she has just not felt well in general. She is weak and has generalized aches. She recently has been treated for some swelling in her right elbow suspected to be olecranon bursitis. She had an attempted drainage of this several days ago at Dr. Coppola's office. She states that the swelling in the elbow has actually gone down. She denies any chest pain, increased abdominal pain, urinary symptoms or any other associated complaints. She has had subjective chills at home and has the sweats. She does report some mild increase in shortness of breath as well. EMS was called to transport the patient here to the emergency department. When they arrived initially her blood pressure was in the 60s systolic. She did receive a 500 mL bolus of normal saline in route. Have you received a tetanus shot in the past 10 years?: Unknown - Patient Home Medications Home Medications: Home Medications Albuterol Sulfate [Ventolin Hfa] 2 puff INH Q4-6H PRN #2 inhaler 05/29/15 Albuterol Neb Soln 0.083% 1 each NEB Q4-6H #30 vial 07/03/15 Mv,Ca,Min/Iron Fum/FA/Vit K [Essential Woman Tablet] 1 each PO DAILY 09/24/15 Febuxostat [Uloric] 40 mg PO DAILY #30 10/04/15 Atorvastatin Calcium [Lipitor] 1 tab PO QHS #30 tab 11/15/15 Digoxin 0.5 tab PO QD #30 tab 03/28/16 Allopurinol 1 tab PO QD #30 tab 08/07/16 Pentamidine Powder Inh [Nebupent Powder Inh] 300 mg INH MONTHLY #1 vial predniSONE Tab [Deltasone Tab] 1 tab PO BID #60 tab 09/27/16 Clopidogrel Bisulfate [Plavix] 1 tab PO QD #30 tab 10/29/16 Potassium Chloride 1 - 2 tab PO TID #90 tab 11/04/16 Furosemide [Lasix] 1.5 tab PO QD #45 tab 11/13/16 Metoprolol Succinate [Toprol Xl] 1 tab PO QD #30 tab 11/13/16 Montelukast Sodium [Singulair] 1 tab PO QD #30 tab 12/05/16 Omeprazole 1 cap PO QD #30 cap 12/05/16 Hydrocodone/Acetaminophen [Hydrocodon-Acetaminoph 7.5-325] 1 tab PO Q6H PRN #30 tab 12/17/16 - Patient Allergies Allergies/Adverse Reactions: Allergies Allergy/AdvReac Type Severity Reaction Status Date / Time aspirin Allergy Severe SHORTNESS Verified 01/02/17 11:55 OF BREATH Penicillins Allergy Severe Anaphylaxis Verified 01/02/17 11:55 lactose AdvReac DIARRHEA Verified 01/02/17 11:55 Past Medical History - heen HEENT History: Denies History, Other (please comment) Additional HEENT History: Nasal Polyps, removed, WEARS GLASSES- glasses not here , as she has lost them Cardiovascular History: Hypertension, CHF, Hyperlipidemia Respiratory History: Asthma Gastrointestinal History: GERD, Irritable Bowel Syndrome Genitourinary History: Denies History Additional Genitourinary History: colovesicular fistula Endocrine History: Denies History Musculoskeletal History: Arthritis, Gout, Back Pain, Back Injury, Joint Pain, Other (please comment) Prosthesis or Implant: No Additional Musculoskeletal History: BACK SURGERY IN January 2012 Neurological History: Denies History Blood Disorders: Denies History Psychiatric History: Denies History History of Sexually Transmitted Diseases: No Female Reproductive History: Denies History Obstetrical History: Denies History Cancer History: Denies History In Past Year Been Physically Harmed or Verbally Threatened: No History of MDRO: Yes History of Other Communicable Diseases: No Tobacco Use: Former Smoker Alcohol Use: Rarely Substance Use Type: None Previous Surgical History: Yes Type / Date of Surgery: Back surgery twice, the last time in 2011 they had to remove previous hardware, Nasal polypectomy ~1989, Appendectomy 1960, TONSILLECTOMY Anesthesia Reactions: No Malignant Hyperthermia: No Significant Family History: Heart disease, COPD Additional Family History: none Past Medical History Reviewed: Reviewed - No Changes ROS - Limitations ROS Limitations: No Limitations Constitution: REPORTS: Chills. DENIES: Fever Cardiovascular: DENIES: Chest Pain, Heart Racing, Heart Palpitations, Edema Respiratory: REPORTS: Shortness Of Breath. DENIES: Cough Non Productive, Cough Productive, Hurts To Breathe Neurological: REPORTS: Dizziness, Other (Generalized weakness). DENIES: Headache, Numbness, Weakness Gastrointestinal: REPORTS: Other (She has a colostomy which is been working normally). DENIES: Abdominal Pain, Nausea, Vomitting Endocrine: REPORTS: Fatigue Musculoskeletal: REPORTS: Back Pain (Chronic back pain), Muscle Aches Genitourinary: DENIES: Dysuria, Difficulty Urinating Eyes: REPORTS: Denies Symptoms ENT: REPORTS: Denies Symptoms Skin: DENIES: Rash General Adult Exam - General Appearance General Appearance: POSITIVE: Alert, Cooperative, No Acute Distress, Other (She does appear acutely ill) - HEENT HEENT: POSITIVE: Head Inspection Nml, Eyes Inspection Nml, Ears Inspection Nml, Pharynx Inspect. Nml, Dry Mucous Membranes - Neck Neck: POSITIVE: Normal Inspection. NEGATIVE: Lymphadenopathy - Respiratory Respiratory: POSITIVE: No Respiratory Distress, Breath Sounds Normal - Cardiovascular Cardiovascular: POSITIVE: Regular Rate & Rhythm, No Murmur Peripheral Pulses: Dorsalis-pedis (R): 2+, Dorsalis-pedis (L): 2+ - Abdomen Abdomen: Soft: (All Quadrants), Denies Tenderness: (All Quadrants), No Distention: (All Quadrants) Additional Abdominal Details: Colostomy is present - Back Back: POSITIVE: Normal Inspection - Skin Skin: POSITIVE: Normal Color, No Rash - Extremities Additional Extremities Details: Right elbow does reveal some mild swelling with fluid accumulation consistent with olecranon bursitis, there is no surrounding induration - Neurological / Psychological Neurological: POSITIVE: Oriented X3, Motor Normal, Sensation Normal, Other (No focal neurologic deficits) General Adult Progress - Results Reviewed by me Xrays/CTs/US Reviewed by me: Yes Discussed with Radiologist: Yes Radiology Findings: CT scan of the chest abdomen pelvis done without contrast reveals a 9.4 cm lesion within the bowel in her abdomen, no free air or free fluid per radiologist. Lab Results Reviewed: Yes Lab Results:: Laboratory Results 01/02/17 01/02/17 Range/Units 12:47 13:33 WBC 25.52 H (4.8-10.8) 10^3/uL RBC 4.33 (4.20-5.40) 10^6/uL Hgb 12.3 (12.0-16.0) g/dL Hct 37.8 (37.0-47.0) % MCV 87.3 (81-99) FL MCH 28.4 (27-31) PG MCHC 32.5 L (33-37) g/dL RDW Std Deviation 59.3 H (39-50) fL RDW Coeff of Jackson 18.7 H (11.5-14.5) % Plt Count 245 (140-350) 10*3/uL MPV 10.7 (7.4-12.2) FL Neutrophils % (Manual) 89 H (50-80) % Band Neutrophils % 1 (0-10) % Lymphocytes % (Manual) 5 L (10-50) % Monocytes % (Manual) 4 (0-12) % Eosinophils % (Manual) 1 (0-8) % Basophils % (Manual) 0 (0-1) % Metamyelocytes % 0 % Myelocytes % 0 % Promyelocytes % 0 % Blast Cells 0 (0-1) % WBC Morphology Comment Normal morphology (NORM) Plt Morphology Comment Normal morphology (NORM) RBC Morph Comment See comments (NORM) Sodium 131 L (135-145) meq/L Potassium 2.9 L (3.8-5.2) meq/L Chloride 95 L (98-112) meq/L Carbon Dioxide 27 (23-33) meq/L Anion Gap 9 (5-20) BUN 13 (7-22) mg/dL Creatinine 0.5 (0.50-1.20) mg/dL Estimated GFR > 60 (>60 ml/min/1.73m(2)) BUN/Creatinine Ratio 26.00 H (6-20) Glucose 179 H (78-110) mg/dL Calculated Osmolality 275.0 (267-292) mOsm/kg Lactic Acid 1.7 (0.70-2.10) MMOL/L Calcium 8.2 L (8.7-10.7) mg/dL Magnesium 1.4 L (1.6-2.4) mg/dL Total Bilirubin 0.9 (0.3-1.2) mg/dL AST 25 (8-39) IU/L ALT 43 (9-52) IU/L Alkaline Phosphatase 133 H (38-126) IU/L Total Creatine Kinase < 20 L (30-136) IU/L Troponin I 0.035 (< 0.040) ng/mL C-Reactive Protein 23.5 H (0.0-0.9) mg/dL NT-Pro-B Natriuret Pep 914 H (0-125) PG/ML Total Protein 5.9 L (6.1-8.0) g/dL Albumin 3.0 L (3.5-4.8) g/dL Globulin 2.9 (2.50-4.10) g/dL Albumin/Globulin Ratio 1.00 L (1.3-2.0) mg/g TSH 2.75 (0.2700-4.2000) uIU/mL Ur Collection Type Cath specimen Urine Color Yellow Urine Clarity Slightly cloudy (CLEAR) Urine pH 5.5 (5.0-8.5) Ur Specific [place] 1.020 (1.005-1.030) Urine Protein Trace (NEG) mg/dl Urine Glucose (UA) Negative (NEG) mg/dL Urine Ketones Negative (NEG) Urine Occult Blood Small H (NEG) Urine Nitrate Negative (NEG) Urine Bilirubin Small (NEG) Urine Urobilinogen 0.2 (0.2) EU/dL Ur Leukocyte Esterase Negative (NEG) Urine RBC 3-5 (NONE) /hpf Urine WBC 3-5 (NONE) Ur Squamous Epith Cells Rare (NONE) Ur Renal Epithelial Cell None (NONE) Urine Crystals None Urine Bacteria Many (NONE) Urine Casts Rare (NONE) Urine Mucus None (NONE) Urine Trichomonas None (NONE) Urine Yeast None (NONE) Ur Culture Indicated? Culture set Digoxin 0.9 (0.8-2.0) ng/mL EKG Interpreted/Reviewed By Me:: Yes EKG Interpretation:: POSITIVE: Other (EKG shows sinus tachycardia with right bundle branch block, no acute ST segment or T-wave changes, unchanged from previous EKG except for she previously was in a flutter) - Patient's Progress MDM / ED Course: Blood cultures and lactate were drawn. The patient received an additional 500 mL bolus of normal saline. Her blood pressure at that point improved into the 100 systolically. Lab work revealed an elevated white count at 25,000. In reviewing her old records her white blood cell count has been elevated anywhere from 15-30,000 over the past several years. Her CRP is significantly elevated over 20 as well. This was in the normal range several months ago. Her magnesium, potassium and sodium are also low. A catheter UA reveals only 3-5 whites with many bacteria, culture is pending. The patient does have a complicated medical history and is immunosuppressed on prednisone. She appears to have early sepsis. Her lactate initially was normal. Her blood pressure did respond to bolus of fluids. She was also given cefepime 2 g IV and vancomycin 1 g IV. I did discuss the patient with Dr. Bynum. Initially he had felt that the patient would benefit from transfer to higher level of care. I had discussed this recommendation with the patient and she was adamant about staying here and [place] if at all possible. Dr. Bynum subsequently came and talked with the patient as well as with Dr. Coppola who is the patient's primary care provider. He had recommended doing a CT scan of her chest, abdomen and pelvis to rule out potential surgery requiring issues or other source of infection. Initially this was attempted with IV contrast however her IV blew. She is a very difficult IV start an IV was reestablished so that antibiotics could be finished. She subsequently underwent CT of the chest abdomen pelvis without IV contrast. This did show a 9.4 cm fluid-filled lesion in the bowel which most likely represents an abscess. I did discuss the patient again with Dr. Bynum and he recommended transfer back to [place] where she had her previous surgeries. I also discussed the patient with Dr. Trimble here who is the general surgeon habilitation worker here and he agreed that the patient should be transferred. I subsequently contacted [facility] and spoke with Dr. Jany Pulliam who is on-call for general surgery as well as Dr. Middleton in the emergency room. They were on able to accept the patient because the hospital was on divert and it was unclear how long they would be on divert. Their recommendation was transferred to [place]. I subsequently discussed this with the patient. She preferred to try to go to [place]. The hospitalist in [place] was unwilling to accept the patient and recommended that she stay here and [place]. I subsequently contacted Dr. Okeefe who is the surgeon on-call at [facility] in [place]. She was willing to accept the patient in transfer. Because of the distance involved in transfer and the potential for significant decline in this patient decision was made to send the [facility] to [place] [facility]. Arrangements were made to send her via fixed wing. The patient was in agreement with this plan. By the time all of her workup had been complete the patient had been here in our emergency room for quite some time. The patient had not taken any of her regular medications. She was given her regular dose of prednisone and digoxin as well as her potassium as her potassium was low as well. Other medications were held for now. - Consult Counseled: POSITIVE: Patient, RE: Lab Results, RE: Radiology Results, RE: DX Patient Care Time - Estimated PCT Patient Care Time (In Minutes): 85 Vital Signs - Recent Vital Signs Vital Signs: Vital Signs (Last 8 hours) Temp Pulse Resp BP Pulse Ox 01/02/17 14:01 98.8 F 101 H 16 93/61 95 01/02/17 13:30 107 H 102/50 95 - VS Reviewed Vital Signs Reviewed: Yes Discharge Clinical Impression: Sepsis, Congestive heart failure, Steroid-dependent asthma, Hypokalemia, Hypomagnesemia, Intra-abdominal abscess Discharge Disposition: Transferred to Tertiary Care Facility Condition: Serious Date Decision to Transfer to Another Facility: 01/02/17 Time Decision to Transfer to Another Facility: 20:35
[2017-01-02 13:20] LABS: C-REACTIVE PROTEIN 23.5 mg/dL (0.0-0.9); PLATELET MORPHOLOGY COMMENT NORMAL MORPHOLOGY (NORM); RBC MORPHOLOGY COMMENT SEE COMMENTS (NORM); WBC MORPHOLOGY COMMENT NORMAL MORPHOLOGY (NORM)
[2017-01-02 13:21] LABS: BAND NEUTROPHILS % 1 % (0-10); EOSINOPHILS % (MANUAL) 1 % (0-8); LYMPHOCYTES % (MANUAL) 5 % (10-50); MONOCYTES % (MANUAL) 4 % (0-12); NEUTROPHILS % (MANUAL) 89 % (50-80)
[2017-01-02 13:22] LABS: BASOPHILS % (MANUAL) 0 % (0-1); METAMYELOCYTES % 0 %; MYELOCYTES % 0 %; PROMYELOCYTES % 0 %
--- NOTE | 2017-01-02 13:40 | DI ---
XR CXR 1VW,01/02/2017 12:09 PM: Clinical History: Weakness and shortness of breath. Previous Exam: January 08, 2014 Findings: A single frontal radiograph of the chest is obtained, and demonstrate clear lungs. The cardiomediasti num and bony thorax are unremarkable. Impression: Normal chest.
[2017-01-02 13:50] LABS: BILIRUBIN,URINE SMALL (NEG); CLARITY,URINE Slightly Cloudy (CLEAR); COLOR,URINE YELLOW; GLUCOSE, URINE (UA) NEGATIVE (NEG); NITRATE,URINE NEGATIVE (NEG); OCCULT BLOOD,URINE SMALL (NEG); PH,URINE 5.5 (5.0-8.5); PROTEIN,URINE TRACE mg/dl (NEG); UROBILINOGEN,URINE 0.2 EU/dL (0.2)
[2017-01-02 13:56] LABS: BACTERIA,URINE MANY; SQUAMOUS EPITHELIAL CELL,UR RARE; URINE CASTS RARE
[2017-01-02 13:57] LABS: URINE SAMPLE TYPE CATH SPECIMEN
[2017-01-02] MEDS ORDERED: Cefepime Inj 2 GM in Sodium Chloride 0.9% 100 ML IV ONE (14:17)
[2017-01-02] MEDS ORDERED: Magnesium Sulfate 2gm (Premix) 2 GM in Premix 1 BAG IV ONE (14:25)
[2017-01-02] MEDS ORDERED: HYDROcodone-APAP 7.5 MG-325 MG TABLET PO ONE (17:56)
--- NOTE | 2017-01-02 19:22 | DI ---
HISTORY: Elevated WBC. COMPARISON: None. TECHNIQUE: Contiguous axial unenhanced images of the chest, abdomen and pelvis were obtained from th e lung bases through the ischial tuberosities. The images were then submitted for interpretation. FINDINGS: The study is limited by the absence of contrast. There is no mediastinal adenopathy. There is desiccation along the breast tissues. There is consult ation of the aortic knuckle. The cardiac silhouette is borderline enlarged. There is coronary arter y calcification. There is no hilar or axillary adenopathy. There is no pleural or pericardial effusion. The trachea, main, and segmental bronchi demonstrate no endobronchial lesions. There is no focal pulmonary nodule, or pulmonary mass. The liver, spleen, pancreas, gallbladder, both kidneys, and both adrenal glands demonstrate no acute findings. There is a nonspecific hypodensity in the periphery of the spleen measuring approximately 1.6 cm on s eries 4 image 30, there is of uncertain significance. MRI could be considered. There is thickening of the GE junction. There is atherosclerotic calcification of the aorta. The I VC is grossly unremarkable. The patient is status post posterior instrumentation, with surgical hardware in the spine causing win m hardening artifacts that limit the sensitivity exam. The uterus is small and atrophied. There is moderate to severe constipation. There is scattered col onic diverticulosis. There is a mass like lesion within the bowel noted in the mid abdomen on series 4 image 94 measuring 9.4 cm. There is no obstruction. The stomach is collapsed. There is no free air or free fluid. The urinary bladder is partially distended. The visualized osseous structures demonstrate diffuse and advanced degenerative change with multileve l surgery. There is no destructive abnormality. There is chondrocalcinosis. There is possibly a broad-based anterior abdominal wall hernia. IMPRESSION: 1. There is no mediastinal adenopathy. There is desiccation along the breast tissues. There is cons ultation of the aortic knuckle. The cardiac silhouette is borderline enlarged. There is coronary ar capo calcification. 2. There is a nonspecific hypodensity in the periphery of the spleen measuring approximately 1.6 cm o n series 4 image 30, there is of uncertain significance. MRI could be considered. 3. There is thickening of the GE junction. There is atherosclerotic calcification of the aorta. 4. The uterus is small and atrophied. There is moderate to severe constipation. There is scattered colonic diverticulosis. 5. There is a mass like lesion within the bowel noted in the mid abdomen on series 4 image 94 measuri ng 9.4 cm. There is no obstruction. The stomach is collapsed. 6. There is possibly a broad-based anterior abdominal wall hernia.
[2017-01-02] MEDS ORDERED: predniSONE Tab 10 MG TAB PO ONE (20:39)
[2017-01-02] MEDS ORDERED: DIGOXIN 125 MCG TABLET PO ONE (20:40)
[2017-01-02] MEDS ORDERED: POTASSIUM CHLORIDE 20 MEQ TAB PO ONE (20:41)
[2017-01-02] MEDS ORDERED: ONDANSETRON 4 MG/2 ML VIAL ONE (22:18)
[2017-01-02] MEDS ORDERED: ONDANSETRON 4 MG/2 ML VIAL IVP ONE (22:18)
[2017-01-02 23:00] VITALS: RESP 18; TEMP 98.4
[2017-01-03] MEDS ORDERED: Sodium Chloride 0.9% 1,000 ML ONE (03:17)
== END 2017-01-02 22:29 | disposition short-term general hospital (02) ==
LOC: ER 11:52
DX: K65.1 Peritoneal abscess (principal); A41.9 Sepsis, unspecified organism; I50.9 Heart failure, unspecified; D72.829 Elevated white blood cell count, unspecified; E83.42 Hypomagnesemia; E87.6 Hypokalemia; J45.998 Other asthma; M70.21 Olecranon bursitis, right elbow; R06.02 Shortness of breath; M79.1 Myalgia; R22.31 Localized swelling, mass and lump, right upper limb; R42 Dizziness and giddiness; R53.1 Weakness
CPT/HCPCS: 36415; 71010; 71250; 74176; 80053; 80162; 81001; 81003; 82550; 83605; 83735; 83880; 84443; 84484; 85007; 86140; 87077; 87088; 87186 ×2; 93005; 93010; 96361; 96365; 96366; 96367; 96375; 99285 ×2; J0692; J2405; J3370; J3475; J7512; J7050

== ENCOUNTER 2017-01-20 23:24 | Emergency (ER) | payer OTHER, MEDICARE ==
[2017-01-20] MEDS ORDERED: MORPHINE SULFATE 2 MG/1 ML IVP ONE (23:42)
[2017-01-20] MEDS ORDERED: ONDANSETRON 4 MG/2 ML VIAL IVP ONE (23:42)
[2017-01-20] MEDS ORDERED: Sodium Chloride 0.9% 500 ML PRIMARY IV ONE (23:42)
--- NOTE | 2017-01-20 23:45 | PDOC ---
Gen Adult / Medical Screen HPI - General Chief Complaint: General Medical Stated Complaint: doesn't feel good Date Seen by Provider: 01/20/17 Time Seen by Provider: 23:40 Source: POSITIVE: Patient Exam Limitations: POSITIVE: No limitations Nurse's Notes Reviewed & Considered: Yes - Indicators Temperature Between 95 and 101 Degrees: Yes Respirations Between 12 and 20: Yes Blood Pressure Between 100-165 (sys) and 60-100 (reece): Yes Pulse Range Between 60-105 (100 for age > 60 years): No (118) Severe Pain (Greater than 5/10 Reported): No Chest or Abdominal Pain: No Inability to Walk: Yes (weakness) Pt Reports Active High Risk Cond. (TB/Hepatitis/HIV/Chemo): No Abnormal Mental Status: No - History of Present Illness Initial Comments: This is a 71-year-old female who comes in today complaining of nausea and vomiting. This patient was just released yesterday from [facility] in [place] after having a pigtail drain placed in a right lower quadrant intra- abdominal abscess. Earlier this year patient had a colostomy placed at [facility]. She states she is having significant increase of weakness, nausea and vomiting for which she was discharged without nausea medicine, and increased malaise. Patient denies any headache, no fever chills or sweats, no diarrhea. She denies any hematuria or dysuria. She is presently on IV daptomycin and oral Biaxin. Body Location Affected: REPORTS: Chest, Abdomen Timing: REPORTS: Constant Duration: Unknown Similar Symptoms Previously: Yes Recent Care Received: REPORTS: Hospitalized Any Prior Injuries Related to Current Complaint?: No - Patient Home Medications Home Medications: Home Medications Albuterol Sulfate [Ventolin Hfa] 2 puff INH Q4-6H PRN #2 inhaler 05/29/15 Albuterol Neb Soln 0.083% 1 each NEB Q4-6H #30 vial 07/03/15 Mv,Ca,Min/Iron Fum/FA/Vit K [Essential Woman Tablet] 1 each PO DAILY 09/24/15 Digoxin 0.5 tab PO QD #30 tab 03/28/16 Allopurinol 1 tab PO QD #30 tab 08/07/16 Pentamidine Powder Inh [Nebupent Powder Inh] 300 mg INH MONTHLY #1 vial Clopidogrel Bisulfate [Plavix] 1 tab PO QD #30 tab 10/29/16 Potassium Chloride 1 - 2 tab PO TID #90 tab 11/04/16 Furosemide [Lasix] 1.5 tab PO QD #45 tab 11/13/16 Metoprolol Succinate [Toprol Xl] 1 tab PO QD #30 tab 11/13/16 Montelukast Sodium [Singulair] 1 tab PO QD #30 tab 12/05/16 Omeprazole 1 cap PO QD #30 cap 12/05/16 Hydrocodone/Acetaminophen [Hydrocodon-Acetaminoph 7.5-325] 1 tab PO Q6H PRN #30 tab 12/17/16 Clarithromycin [Biaxin] 500 mg PO BID 01/21/17 Prednisone 1 mg PO DAILY 01/21/17 Prednisone 5 mg PO DAILY 01/21/17 Prednisone 10 mg PO DAILY 01/21/17 - Patient Allergies Allergies/Adverse Reactions: Allergies Allergy/AdvReac Type Severity Reaction Status Date / Time aspirin Allergy Severe SHORTNESS Verified 01/20/17 23:33 OF BREATH Penicillins Allergy Severe Anaphylaxis Verified 01/20/17 23:33 lactose AdvReac DIARRHEA Verified 01/20/17 23:33 Past Medical History - heen HEENT History: Denies History, Other (please comment) Additional HEENT History: Nasal Polyps, removed, WEARS GLASSES- glasses not here , as she has lost them Cardiovascular History: Hypertension, CHF, Hyperlipidemia Respiratory History: Asthma Gastrointestinal History: GERD, Irritable Bowel Syndrome Genitourinary History: Denies History Additional Genitourinary History: colovesicular fistula Endocrine History: Denies History Musculoskeletal History: Arthritis, Gout, Back Pain, Back Injury, Joint Pain, Other (please comment) Prosthesis or Implant: No Additional Musculoskeletal History: BACK SURGERY IN January 2012 Neurological History: Denies History Blood Disorders: Denies History Psychiatric History: Denies History History of Sexually Transmitted Diseases: No Cancer History: Denies History History of MDRO: Yes History of Other Communicable Diseases: No Alcohol Use: Rarely Substance Use Type: None Previous Surgical History: Yes Type / Date of Surgery: Back surgery twice, the last time in 2011 they had to remove previous hardware, Nasal polypectomy ~1989, Appendectomy 1960, TONSILLECTOMY Anesthesia Reactions: No Malignant Hyperthermia: No Significant Family History: Heart disease, COPD Additional Family History: none ROS - Limitations ROS Limitations: No Limitations Constitution: REPORTS: Weakness Cardiovascular: REPORTS: Denies Cardiac Symptoms Respiratory: REPORTS: Shortness Of Breath Neurological: REPORTS: Denies Neuro Symptoms Gastrointestinal: REPORTS: Abdominal Pain Endocrine: REPORTS: Fatigue Musculoskeletal: REPORTS: Denies MS Symptoms Genitourinary: REPORTS: Denies Symptoms Eyes: REPORTS: Denies Symptoms ENT: REPORTS: Denies Symptoms Skin: REPORTS: Denies Skin Symptoms Lympathic: REPORTS: Denies Lympathic Symptoms Immunologic: POSITIVE: Denies Symptoms Psychiatric: POSITIVE: Denies Psych Symptoms Gen Adult/Medical Screen Exam - General Appearance General Appearance: POSITIVE: Alert, Cooperative, No Acute Distress, No Evidence of Trauma - HEENT HEENT: POSITIVE: Head Inspection Nml, Eyes Inspection Nml, Ears Inspection Nml, Nose Inspection Nml, Oral/Dental Inspect. Nml, Pharynx Inspect. Nml, PERRL, EOMI - Pupils Pupil Size: 4 mm: Bilateral - Neck Neck: POSITIVE: Normal Inspection, Thyroid Normal - Respiratory Respiratory: POSITIVE: No Respiratory Distress, Breath Sounds Normal, Chest Non- Tender - Cardiovascular Cardiovascular: POSITIVE: Regular Rate & Rhythm, No Murmur, No Gallop, PMI Normal - Abdomen Abdomen: Soft: (All Quadrants), Normal Bowel Sounds: (All Quadrants), Tenderness Noted: (LLQ), (RLQ) - Neurological / Psychological Mental Status: POSITIVE: Mood Normal, Affect Normal Orientation: POSITIVE: Oriented x 3 - Skin Skin: POSITIVE: Normal Color, Warm, Dry, No Rash - Extremities Extremity: Non-Tender: (All Extremities), Normal ROM: (All Extremities), Normal Inspection: (All Extremities), Pelvis Stable: (All Extremities) Procedures - Laceration/Wound Repair Did patient have a laceration repair: No Gen Adlt/Medical Scrn Progress - Results Reviewed by me Xrays/CTs/US Reviewed by me: Yes Discussed with Radiologist: Yes Lab Results Reviewed: Yes Lab Results:: Laboratory Results 01/20/17 01/21/17 Range/Units 23:58 01:00 WBC 17.08 H (4.8-10.8) 10^3/uL RBC 3.67 L (4.20-5.40) 10^6/uL Hgb 10.8 L (12.0-16.0) g/dL Hct 32.5 L (37.0-47.0) % MCV 88.6 (81-99) FL MCH 29.4 (27-31) PG MCHC 33.2 (33-37) g/dL RDW Std Deviation 50.7 H (39-50) fL RDW Coeff of Jackson 16.3 H (11.5-14.5) % Plt Count 388 H (140-350) 10*3/uL MPV 10.2 (7.4-12.2) FL Neutrophils % (Manual) 80 (50-80) % Band Neutrophils % 5 (0-10) % Lymphocytes % (Manual) 8 L (10-50) % Monocytes % (Manual) 2 (0-12) % Eosinophils % (Manual) 1 (0-8) % Basophils % (Manual) 0 (0-1) % Metamyelocytes % Not Reportable Myelocytes % 4 % Promyelocytes % Not Reportable Blast Cells Not Reportable WBC Morphology Comment Normal morphology (NORM) Plt Morphology Comment Normal morphology (NORM) RBC Morph Comment Normal morphology (NORM) Sodium 133 L (135-145) meq/L Potassium 3.2 L (3.8-5.2) meq/L Chloride 99 (98-112) meq/L Carbon Dioxide 25 (23-33) meq/L Anion Gap 9 (5-20) BUN 6 L (7-22) mg/dL Creatinine 0.5 (0.50-1.20) mg/dL Estimated GFR > 60 (>60 ml/min/1.73m(2)) BUN/Creatinine Ratio 12.00 (6-20) Glucose 104 (78-110) mg/dL Calculated Osmolality 273.0 (267-292) mOsm/kg Lactic Acid 1.0 (0.70-2.10) MMOL/L Calcium 8.9 (8.7-10.7) mg/dL Magnesium 1.6 (1.6-2.4) mg/dL Total Bilirubin 0.5 (0.3-1.2) mg/dL AST 11 (8-39) IU/L ALT 23 (9-52) IU/L Alkaline Phosphatase 85 (38-126) IU/L C-Reactive Protein 17.9 H (0.0-0.9) mg/dL NT-Pro-B Natriuret Pep 796 H (0-125) PG/ML Total Protein 6.1 (6.1-8.0) g/dL Albumin 2.9 L (3.5-4.8) g/dL Globulin 3.2 (2.50-4.10) g/dL Albumin/Globulin Ratio 0.90 L (1.3-2.0) mg/g Ur Collection Type Clean catch urine Urine Color Brown Urine Clarity Slightly cloudy (CLEAR) Urine pH 6.0 (5.0-8.5) Ur Specific [place] 1.020 (1.005-1.030) Urine Protein 100 (NEG) mg/dl Urine Glucose (UA) Negative (NEG) mg/dL Urine Ketones 15 (NEG) Urine Occult Blood Negative (NEG) Urine Nitrate Positive H (NEG) Urine Bilirubin Moderate (NEG) Urine Urobilinogen 0.2 (0.2) EU/dL Ur Leukocyte Esterase Trace (NEG) Urine RBC 1-3 (NONE) /hpf Urine WBC 1-4 (NONE) Ur Squamous Epith Cells Many (NONE) Ur Renal Epithelial Cell Moderate (NONE) Urine Crystals None Urine Bacteria Rare (NONE) Urine Casts Moderate (NONE) Urine Mucus Many (NONE) Urine Trichomonas None (NONE) Urine Yeast None (NONE) Ur Culture Indicated? Culture set - Patient's Progress Pain Medication Addressed: POSITIVE: Yes Re-Examine Time: 03:11 Status: POSITIVE: Improved MDM / ED Course: This patient was examined, an IV started, blood drawn and sent to the lab for studies, blood cultures obtained, radiographic examination via CT scan was obtained. Findings: CBC shows white count elevated at 17 hemoglobin is 10 hematocrit is 32. Comprehensive metabolic panel shows a sodium of 133 and a potassium of 3.2. CRP is elevated at 18. BNP is elevated at 800. Urinalysis shows rare bacteria and nitrite positive urine. CT scan of her abdomen shows a pigtail drain in the right lower quadrant with a fluid collection measuring 9 x 6 x 11 cm. Assessment: #1 intra-abdominal abscess with pigtail drain in place. #2 nitrite positive urine. #3 anemia. #4 global weakness with deconditioning. Plan: I have discussed the patient with Dr. Daniel Stephenson the on-call infectious disease specialist at [facility]. He is recommending no additional antibiotics at this time until he has had a chance to further evaluate the patient and plan her antibiotic coverage. I have discussed patient with the ER doctor at [facility], Dr. Reinier Doherty, who will be seeing this patient upon transfer. I further discussed the patient with Dr. Elliott, the on- call surgeon, who is recommending ER admission and consultation with the patient 's surgeon Dr. Kamaljit Taveras. Patient is being transferred via ground ambulance. - Consult Consult (If Yes, Name of Consulting MD & Time Called): Yes (Dr. Gardner [id number]) Consulting MD will see pt:: POSITIVE: Recommended Transfer Counseled: POSITIVE: Patient, RE: Lab Results, RE: Radiology Results, RE: DX Patient Care Time - Estimated PCT Patient Care Time (In Minutes): 90 Vital Signs - Recent Vital Signs Vital Signs: Vital Signs (Last 8 hours) Temp Pulse Resp BP Pulse Ox 01/20/17 23:41 98.8 F 118 H 18 114/79 92 - VS Reviewed Vital Signs Reviewed: Yes Discharge Clinical Impression: Intra-abdominal abscess post-procedure, Anemia, Physical deconditioning, Urinary tract infection after immobility Discharge Disposition: Transferred to Tertiary Care Facility Condition: Stable Date Decision to Transfer to Another Facility: 01/21/17 Time Decision to Transfer to Another Facility: 03:18
[2017-01-21 00:15] LABS: HEMATOCRIT 32.5 % (37.0-47.0); HEMOGLOBIN 10.8 g/dL (12.0-16.0); MEAN CORPUSCULAR HEMOGLOBIN 29.4 PG (27-31); MEAN CORPUSCULAR HGB CONC 33.2 g/dL (33-37); MEAN CORPUSCULAR VOLUME 88.6 FL (81-99); MEAN PLATELET VOLUME 10.2 FL (7.4-12.2); RED BLOOD COUNT 3.67 10^6/uL (4.20-5.40)
[2017-01-21 00:26] LABS: BLOOD UREA NITROGEN 6 mg/dL (7-22); CALCIUM 8.9 mg/dL (8.7-10.7); EST GLOMERULAR FILTRATION > 60 (>60 ml/min/1.73m(2)); MAGNESIUM 1.6 mg/dL (1.6-2.4); SERUM ALBUMIN 2.9 g/dL (3.5-4.8)
[2017-01-21 00:28] LABS: PLATELET MORPHOLOGY COMMENT NORMAL MORPHOLOGY (NORM); RBC MORPHOLOGY COMMENT NORMAL MORPHOLOGY (NORM); WBC MORPHOLOGY COMMENT NORMAL MORPHOLOGY (NORM)
[2017-01-21 00:29] LABS: BAND NEUTROPHILS % 5 % (0-10); BASOPHILS % (MANUAL) 0 % (0-1); EOSINOPHILS % (MANUAL) 1 % (0-8); LYMPHOCYTES % (MANUAL) 8 % (10-50); MONOCYTES % (MANUAL) 2 % (0-12); MYELOCYTES % 4 %; NEUTROPHILS % (MANUAL) 80 % (50-80)
[2017-01-21 00:36] LABS: C-REACTIVE PROTEIN 17.9 mg/dL (0.0-0.9)
[2017-01-21] MEDS ORDERED: KETOROLAC 15 MG/1 ML VIAL IVP ONE (00:39)
[2017-01-21] MEDS ORDERED: Sodium Chloride 0.9% 500 ML PRIMARY IV ONE (00:39)
[2017-01-21 01:18] LABS: BILIRUBIN,URINE MODERATE (NEG); CLARITY,URINE Slightly Cloudy (CLEAR); COLOR,URINE BROWN; GLUCOSE, URINE (UA) NEGATIVE (NEG); NITRATE,URINE POSITIVE (NEG); OCCULT BLOOD,URINE NEGATIVE (NEG); PROTEIN,URINE 100 mg/dl (NEG); UROBILINOGEN,URINE 0.2 EU/dL (0.2)
[2017-01-21 01:28] LABS: URINE SAMPLE TYPE CLEAN CATCH URINE
[2017-01-21 01:29] LABS: BACTERIA,URINE RARE; RENAL EPITHELIAL CELLS,URINE MODERATE; SQUAMOUS EPITHELIAL CELL,UR MANY; URINE CASTS MODERATE
--- NOTE | 2017-01-21 02:24 | DI ---
HISTORY: Weakness, shortness of breath, fever. COMPARISON: None available. TECHNIQUE: Contiguous axial images of the chest, abdomen, and pelvis were obtained and submitted for interpretation. FINDINGS: There is no dense consolidation. Bibasilar dependent atelectasis versus scar is noted. The re is atelectasis and scarring in the medial right middle lobe and lingula. There is a small left ple ural effusion. There is no pneumothorax. The great vessels demonstrate normal course and caliber. There are atheromatous aortic and coronary artery calcifications No main pulmonary emboli. Contrast bolus timing is suboptimal for the evaluation of more distal embo li. There is diffuse bronchial wall thickening. Heart size is normal with no pericardial effusion. No mediastinal or hilar lymphadenopathy. The thyroid exhibits heterogeneous attenuation with multiple coarse calcifications. Normal CT appearance of the gallbladder, pancreas, right kidney, and adrenal glands. There are two subcentimeter hypoattenuating lesions in the right lobe of the liver, too small to characterize. The re is a 1.8 cm hypoattenuating lesion with peripheral calcification in the spleen. There is a subcent imeter hypoattenuating lesion in the lower pole of the left kidney. Ureters and bladder are unremark able. There is a right sided pigtail catheter extending medially into a loculated fluid collection in the m id abdomen/pelvis. The fluid collection extends from the inferior margin of the third segment of the duodenum to the dome of the urinary bladder and measures 9.1 x 6.2 x 11.2 cm. The patient is status post left hemicolectomy with a left sided colostomy and a Jacobs pouch. Hollow viscus organs demonstrate expected course and caliber. There is no intraperitoneal free air or fluid . Vascular structures are intact. No abdominopelvic lymphadenopathy is present. The uterus is atro phic and the adnexae are unremarkable, though better evaluated with pelvic ultrasound. There is a 6 mm sclerotic lesion in the C7 vertebral body that most likely represent a bone island in the absence of additional clinical or laboratory findings. There is age indeterminate anterior compr ession deformity of T8 and T9. There is diffuse demineralization of the osseous structures with mult ilevel degenerative disc disease. There are postsurgical changes consistent with posterior fusion of the lumbar spine from the L2 through L5 levels and L3 laminectomy. There is grade 1 anterolisthesis o f L3 on L4 and reversal of the normal lumbar lordosis. There is a left-sided PICC line in place with the tip at the confluence of the left innominate vein a nd superior vena cava. IMPRESSION: 1. Medial right middle lobe and lingular atelectasis and scarring, findings associated with chronic m ycobacterial infection. 2. Small left pleural effusion. 3. Diffuse bronchial wall thickening, a finding associated with acute or chronic bronchitis, as well as reactive airways disease. 4. Heterogeneous attenuation of the thyroid with multiple coarse calcifications. A dedicated thyroid ultrasound may be obtained as clinically indicated. 5. Hypoattenuating 1.8 cm lesion with peripheral calcification in the spleen. Dedicated imaging is r ecommended if no priors are available for comparison. 6. Right sided pigtail catheter extending immediately into a loculated fluid collection in the mid ab domen/pelvis. The fluid collection extends from the inferior margin of the third segment of the duode num to the dome of the urinary bladder and measures 9.1 x 6.2 x 11.2 cm. 7. Status post left hemicolectomy with a non-obstructive bowel gas pattern. NOTIFICATION: The above findings were phoned to Jessenia Mcgrath in the ER Department on 01/21/2017 at 5:12am EST.
[2017-01-21] MEDS ORDERED: Sodium Chloride 0.9% 1,000 ML PRIMARY IV ONE (03:10)
[2017-01-21] MEDS ORDERED: MORPHINE SULFATE 2 MG/1 ML IVP ONE (03:33)
[2017-01-21 04:47] VITALS: RESP 20; TEMP 98.4
== END 2017-01-21 03:59 | disposition short-term general hospital (02) ==
LOC: ER 23:24
DX: T81.4XXA Infection following a procedure, initial encounter (principal); K65.1 Peritoneal abscess; R53.1 Weakness; R10.31 Right lower quadrant pain; R06.02 Shortness of breath; N39.0 Urinary tract infection, site not specified; D64.9 Anemia, unspecified; R11.2 Nausea with vomiting, unspecified
CPT/HCPCS: 36415; 71260; 74177; 80053; 81001; 81003; 83605; 83735; 83880; 85007; 86140; 87040; 87088; 96374; 96375; 96376; 99284 ×2; J1885; J2270; J2405; J7030

== ENCOUNTER 2017-08-05 14:38 | Inpatient (IN) ==
--- NOTE | 2017-08-05 15:00 | PDOC ---
Nausea/Vomiting/Diarrhea HPI - General Chief Complaint: Nausea / Vomiting / Diarrhea Stated Complaint: NAUSEA, WEAKNESS Date Seen by Provider: 08/05/17 Time Seen by Provider: 14:49 Source: POSITIVE: Patient Exam Limitations: POSITIVE: No limitations Nurse's Notes Reviewed & Considered: Yes - History of Present Illness Initial Comments: This is a very pleasant, well developed, well nourished, 72-year-old female complaining of nausea vomiting and abdominal discomfort. Patient has approximately 3-1/2 or 4 week history of increasing abdominal discomfort, nausea , vomiting, and diarrhea. She was seen here in the emergency room on August 01 and diagnosed with a urinary tract infection, nausea vomiting and diarrhea. CT scan done at that time showed mild constipation with proximal fecal retention and nonspecific stranding in the pelvis. She was discharged on Keflex with instructions to continue with her Biaxin. She returns today with a continued complaint of nausea vomiting and diarrhea and generalized weakness. Her abdominal discomfort is predominantly in the epigastric region. She further states she's had decreased urine output but denies any dysuria or hematuria. Body Location Affected: REPORTS: Abdomen Timing: REPORTS: Constant Duration: Unknown Severity: Moderate Quality: REPORTS: Cramping, "Pain" Abdominal Pain Onset Location: REPORTS: Epigastric Abdominal Pain Radiation: REPORTS: No radiation Context: REPORTS: None Modifying Factors: improves with: Nothing Associated Symptoms: REPORTS: Vomiting, Diarrhea, Abdominal Pain, Cramping Similar Symptoms Previously: Yes Recent Care Received: REPORTS: Recently Seen Any Prior Injuries Related to Current Complaint?: No - Patient Home Medications Home Medications: Home Medications Albuterol Neb Soln 0.083% 1 ea NEB Q4-6H PRN #30 vial 07/03/15 lisinopril 10 mg tablet 10 mg PO QDAY #90 tab NS 03/15/17 cholecalciferol (vitamin D3) 1,000 unit capsule 1,000 unit PO ONCE 03/24/17 allopurinol 300 mg tablet 300 mg PO QD #30 tab 03/28/17 metoprolol succinate ER 50 mg tablet,extended release 24 hr 50 mg PO QD #30 tab 04/02/17 omeprazole 20 mg capsule,delayed release 20 mg PO QD #30 cap 04/02/17 prednisone 5 mg tablet 5 mg PO QHS #30 tab 04/09/17 clopidogrel 75 mg tablet 75 mg PO QD #30 tab 04/15/17 rosuvastatin 40 mg tablet 40 mg PO QHS #30 tab 05/20/17 digoxin 250 mcg tablet 250 mcg PO QD #30 tab 06/03/17 Prednisone 1 mg PO QHS 07/09/17 clarithromycin 500 mg tablet 500 mg PO BID 07/14/17 doxycycline hyclate 150 mg tablet 50 mg PO BID 07/14/17 hydrocodone 7.5 mg-acetaminophen 325 mg tablet 1 tab PO Q6H PRN #90 tab Cephalexin [Keflex] 500 mg PO BID 08/05/17 Furosemide [Lasix] 40 mg PO QD 08/05/17 Montelukast Sodium [Singulair] 10 mg PO BEDTIME 08/05/17 Potassium Chloride 20 meq PO BID 08/05/17 Prednisone 10 mg PO DAILY 08/05/17 - Patient Allergies Allergies/Adverse Reactions: Allergies 3 Allergy/AdvReac Type Severity Reaction Status Date / Time aspirin Allergy Severe SHORTNESS Verified 08/05/17 14:44 OF BREATH Penicillins Allergy Severe Anaphylaxis Verified 08/05/17 14:44 lactose AdvReac DIARRHEA Verified 08/05/17 14:44 Past Medical History - heen HEENT History: Denies History, Other (please comment) Additional HEENT History: Nasal Polyps, removed, WEARS GLASSES- glasses not here , as she has lost them Cardiovascular History: Hypertension, CHF, Hyperlipidemia Respiratory History: Asthma Gastrointestinal History: GERD, Irritable Bowel Syndrome Additional Gastrointestinal History: COLOSTOMY JUL 2016 Genitourinary History: Denies History Additional Genitourinary History: colovesicular fistula Endocrine History: Denies History Musculoskeletal History: Arthritis, Gout, Back Pain, Back Injury, Joint Pain, Other (please comment) Prosthesis or Implant: No Additional Musculoskeletal History: BACK SURGERY IN January 2012 Neurological History: Denies History Blood Disorders: Denies History Psychiatric History: Denies History History of Sexually Transmitted Diseases: No Cancer History: Denies History History of MDRO: No History of Other Communicable Diseases: No Alcohol Use: Rarely In the Past 12 Months, Have Used or Abuse Any Substance: None Previous Surgical History: Yes Type / Date of Surgery: Back surgery twice, the last time in 2011 they had to remove previous hardware, Nasal polypectomy ~1989, Appendectomy 1960, TONSILLECTOMY Anesthesia Reactions: No Malignant Hyperthermia: No Significant Family History: Heart disease, COPD Additional Family History: none ROS - Limitations ROS Limitations: No Limitations Constitution: REPORTS: Chills Cardiovascular: REPORTS: Denies Cardiac Symptoms Respiratory: REPORTS: Denies Resp Symptoms Neurological: REPORTS: Denies Neuro Symptoms Gastrointestinal: REPORTS: Abdominal Pain, Nausea, Vomitting, Diarrhea Endocrine: REPORTS: Denies Symptoms Musculoskeletal: REPORTS: Denies MS Symptoms Genitourinary: REPORTS: Other (decreased urine output) Eyes: REPORTS: Denies Symptoms ENT: REPORTS: Denies Symptoms Skin: REPORTS: Denies Skin Symptoms Lympathic: REPORTS: Denies Lympathic Symptoms Immunologic: POSITIVE: Denies Symptoms Psychiatric: POSITIVE: Denies Psych Symptoms Nausea/Vomiting/Diarrhea Exam - General Appearance General Appearance: POSITIVE: Alert, Cooperative, No Acute Distress, No Evidence of Trauma - HEENT HEENT: POSITIVE: Head Inspection Nml, Eyes Inspection Nml, Ears Inspection Nml, Nose Inspection Nml, Oral/Dental Inspect. Nml, Pharynx Inspect. Nml, PERRL, EOMI - Neck Neck: POSITIVE: Supple, Normal Inspection, Non Tender - Respiratory Respiratory: POSITIVE: No Respiratory Distress, Breath Sounds Normal, Chest Non- Tender - Cardiovascular Cardiovascular: POSITIVE: Regular Rate and Rhythm, Heart Sounds Normal, Strong Pulses Peripheral Pulses: Radial (L): 4+ - Chest Chest: POSITIVE: Non Tender - Abdomen Abdomen: Soft: (All Quadrants), Normal Bowel Sounds: (All Quadrants), Denies Tenderness: (All Quadrants), No Splenomegaly: (All Quadrants), No Hepatomegaly: (All Quadrants), No Guarding: (All Quadrants), No Rebound: (All Quadrants), No Palpable Pulse: (All Quadrants), No Palpabale Mass: (All Quadrants), No Distention: (All Quadrants), No Rigidity: (All Quadrants) - Back Back: POSITIVE: Normal Inspection - Skin Skin: POSITIVE: Intact, Normal For Race, Warm, Dry, No Rash - Extremities Extremity: Non-Tender: (All Extremities), Normal ROM: (All Extremities), Normal Inspection: (All Extremities), Pelvis Stable: (All Extremities) - Neurological / Psychological Neurological: 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 Findings: CBC showed white count of 11. Comprehensive metabolic panel shows a potassium of 3.5. There are elevated LFTs present. Total serum cortisol is pending. Assessment: Cortisol crisis Plan: Admission. - Consult Consult (If Yes, Name of Consulting MD & Time Called): Yes (Dr. Macias 1650 hrs) Consulting MD will see pt:: [place]IT[place] [facility] [place] Counseled: POSITIVE: Patient, RE: Lab Results, RE: Radiology Results, RE: DX Patient Care Time - Estimated PCT Patient Care Time (In Minutes): 45 Vital Signs - Recent Vital Signs Vital Signs: Vital Signs (Last 8 hours) Temp Pulse Resp BP Pulse Ox 08/05/17 14:38 97.3 F 99 18 115/92 96 - VS Reviewed Vital Signs Reviewed: Yes Discharge Clinical Impression: Adrenal crisis Discharge Disposition: Admit to Inpatient Condition: Stable Follow Up With: RAY HUMMEL [Primary Care Provider] - Date Decision to Admit to Inpatient: 08/05/17 Time Decision to Admit to Inpatient: 17:00
[2017-08-05] MEDS ORDERED: ONDANSETRON 4 MG/2 ML VIAL IVP ONE (15:02)
[2017-08-05] MEDS ORDERED: NORMAL SALINE 10 ML SYRINGE FLUSH IVP PRN ×2 (15:11→17:06)
[2017-08-05 15:16] LABS: BASOPHILS # (AUTO) 0.01 10*3/UL; BASOPHILS % (AUTO) 0.1 % (0-1); EOSINOPHILS # (AUTO) 0.01 10*3/UL; EOSINOPHILS % (AUTO) 0.1 % (0-8); Hematocrit [HCT] 40.3 % (37.0-47.0); Hemoglobin [HGB] 13.5 g/dL (12.0-16.0); LYMPHOCYTES # (AUTO) 0.72 10*3/uL; MEAN CORPUSCULAR HEMOGLOBIN 29.7 PG (27-31); MEAN CORPUSCULAR HGB CONC 33.5 g/dL (33-37); MEAN CORPUSCULAR VOLUME 88.8 FL (81-99); MEAN PLATELET VOLUME 11.9 FL (7.4-12.2); MONOCYTES # (AUTO) 0.79 10*3/UL (0.3-0.8); MONOCYTES % (AUTO) 7.2 % (5-15); NEUTROPHILS # (AUTO) 9.31 10*3/UL; NEUTROPHILS % (AUTO) 84.9 % (50-80); RED BLOOD COUNT 4.54 10^6/uL (4.20-5.40)
[2017-08-05 15:38] LABS: BLOOD UREA NITROGEN 21 mg/dL (7-22); BUN/CREATININE RATIO 26.25 (6-20); PLATELET MORPHOLOGY COMMENT NORMAL MORPHOLOGY (NORM); RBC MORPHOLOGY COMMENT NORMAL MORPHOLOGY (NORM); WBC MORPHOLOGY COMMENT NORMAL MORPHOLOGY (NORM)
[2017-08-05 15:45] LABS: BILIRUBIN,URINE NEGATIVE (NEG); CLARITY,URINE CLEAR (CLEAR); COLOR,URINE YELLOW (Y); GLUCOSE, URINE (UA) NEGATIVE (NEG); OCCULT BLOOD,URINE SMALL (NEG); PROTEIN,URINE TRACE mg/dl (NEG); UROBILINOGEN,URINE 0.2 EU/dL (0.2)
[2017-08-05 16:04] LABS: RBC,URINE 0-2 /hpf; URINE SAMPLE TYPE CATH SPECIMEN; WBC,URINE 0
[2017-08-05] MEDS ORDERED: Non-Formulary Drug (Cholecalciferol (Vitamin D3) [Vitamin D3] 1,000 UNIT) PO SCH (17:06)
[2017-08-05] MEDS ORDERED: ALBUTEROL SULFATE 2.5 MG/3 ML NEB PRN (17:06)
[2017-08-05] MEDS ORDERED: ACETAMINOPHEN 325 MG TABLET PO PRN (17:06)
[2017-08-05] MEDS ORDERED: CALCIUM CARBONATE 500 MG (TUMS) CHEWABLE TABLET PO PRN (17:06)
[2017-08-05] MEDS ORDERED: DIGOXIN 250 MCG TABLET PO SCH (17:06)
[2017-08-05] MEDS ORDERED: FUROSEMIDE 40 MG TABLET PO SCH (17:06)
[2017-08-05] MEDS ORDERED: ONDANSETRON 4 MG/2 ML VIAL IVP PRN (17:06)
[2017-08-05] MEDS ORDERED: LIDOCAINE W/ SODIUM BICARB 0.5 ML SYR SUBD PRN (17:06)
[2017-08-05] MEDS ORDERED: HYDROcodone-APAP 7.5 MG-325 MG TABLET PO PRN (17:06)
[2017-08-05] MEDS ORDERED: DOCUSATE 100 MG CAPSULE PO PRN (17:06)
--- NOTE | 2017-08-05 18:01 | DI ---
US Retroperitoneum,08/05/2017 5:14 PM: Clinical History: Left renal mass Previous Exam: 08/01/17 Findings: Multiple grayscale and color Doppler sonographic images are obtained through the retroperitoneum, and demonstrate normal-appearing right kidney measuring 9.2 cm in length without hydronephrosis nor neph rolithiasis. The left kidney is also normal measuring 9.4 cm in length. There is no hydronephrosis nor nephrolithiasis. There is no renal mass identified. Impression: No evidence of renal mass.
[2017-08-05] MEDS: OMEPRAZOLE 20 MG CAPSULE PO SCH (18:14)
[2017-08-05] MEDS: Sodium Chloride 0.9% 1,000 ML PRIMARY IV SCH (18:45)
[2017-08-05] MEDS: HYDROCORTISONE 100 MG/2 ML IVP SCH ×2 (18:47→23:36)
[2017-08-05] MEDS: CLOPIDOGREL 75 MG TABLET PO SCH (19:10)
[2017-08-05] MEDS ORDERED: Montelukast Tab 10 MG TAB PO SCH (21:00)
[2017-08-05] MEDS ORDERED: Rosuvastatin Tab 20 MG TAB PO SCH (21:00)
[2017-08-05] MEDS ORDERED: DOXYCYCLINE HYCLATE 50 MG PO SCH (21:00)
[2017-08-05] MEDS: CLARITHROMYCIN 500 MG PO SCH (21:00)
--- NOTE | 2017-08-05 21:04 | PDOC ---
HPI - History of Present Illness Date of Service: 08/05/17 Time of Service: 21:00 Chief Complaint: Nausea and weakness History of Present Illness: This very pleasant 72-year-old female with a sort history of osteomyelitis, multiple infections, coronary artery disease, heart failure, hypertension, amongst other medical issues. She's been on chronic steroids for her arthritis symptoms for some time. She states that over the last month or so, she has been developing worsening nausea, occasional abdominal pain, vomiting, and general malaise and weakness. She's had some emergency room evaluations, and CT scans of the abdomen and pelvis have not been revealing of an etiology. There is a questionable left kidney cyst or mass that was negative on ultrasound. Patient has not had any fevers, cough, or chills. She stated to the emergency room doctor that her steroid dose was being reduced recently and that when she gets to a certain point often times she does not do very well. She denies any chest pain, cough, or other infectious symptoms such as diarrhea. She has a colostomy which seems to be putting stool out in the normal fashion. Patient really hasn't tried anything other than just talking to various physicians about these symptoms, and in addition to her nausea, vomiting, and weakness, she was found to have a low sodium and a low potassium today. She had been diagnosed with urinary tract infection on her recent emergency room visit, was placed on Keflex. She had already been on doxycycline and erythromycin. Past Medical History Medical History: 1. History asthma. 2. gouty arthropathy. 3. Recurrent cellulitis and osteomyelitis. 4. Congestive heart failure secondary to systolic dysfunction. 5. Coronary artery disease with a history of stents. 6. hypertension. 7. Diastases rectus. 8. chronic colovesical fistula. 9. history of diverticulitis. 10. GERD. 11. Pigtail catheter drainage is on a couple of occasions, as well as exploratory laparotomy with drainage of abscess and and colostomy with sigmoid colectomy done. Surgical History: Multiple back surgeries. Tonsillectomy and adenoidectomy. Appendectomy. Colonoscopy. Upper endoscopy. Sinus surgery. Sigmoid colectomy. End colostomy. Multiple pigtail abscess drainage catheters. Pertinent Family History: She states her father had emphysema problems. Past Social History: Does not smoke or drink alcohol. . Has 3 biologic children, one has MS and the other has ALS. She raised 6 children altogether however. Tobacco Use: Never Smoker In the Past 12 Months, Have Used or Abuse Any of the Following Substance: None Alcohol Use: None Medication / Allergies Home Medications: Home Medications 3 Medication Instructions Recorded Confirmed Type Albuterol Neb Soln 0.083% 1 ea NEB Q4-6H PRN #30 vial 07/03/15 08/05/17 History lisinopril 10 mg tablet 10 mg PO QDAY #90 tab NS 03/15/17 08/05/17 Rx cholecalciferol (vitamin D3) 1,000 1,000 unit PO ONCE 03/24/17 08/05/17 History unit capsule allopurinol 300 mg tablet 300 mg PO QD #30 tab 03/28/17 08/05/17 Rx metoprolol succinate ER 50 mg 50 mg PO QD #30 tab 04/02/17 08/05/17 Rx tablet,extended release 24 hr omeprazole 20 mg capsule,delayed 20 mg PO QD #30 cap 04/02/17 08/05/17 Rx release prednisone 5 mg tablet 5 mg PO QHS #30 tab 04/09/17 08/05/17 Rx clopidogrel 75 mg tablet 75 mg PO QD #30 tab 04/15/17 08/05/17 Rx rosuvastatin 40 mg tablet 40 mg PO QHS #30 tab 05/20/17 08/05/17 Rx digoxin 250 mcg tablet 250 mcg PO QD #30 tab 06/03/17 08/05/17 Rx Prednisone 1 mg PO QHS 07/09/17 08/05/17 History clarithromycin 500 mg tablet 500 mg PO BID 07/14/17 08/05/17 History doxycycline hyclate 150 mg tablet 50 mg PO BID 07/14/17 08/05/17 History hydrocodone 7.5 mg-acetaminophen 1 tab PO Q6H PRN #90 tab 07/14/17 08/05/17 Rx 325 mg tablet Cephalexin [Keflex] 500 mg PO BID 08/05/17 08/05/17 History Furosemide [Lasix] 40 mg PO QD 08/05/17 08/05/17 History Montelukast Sodium [Singulair] 10 mg PO BEDTIME 08/05/17 08/05/17 History Potassium Chloride 20 meq PO BID 08/05/17 08/05/17 History Prednisone 10 mg PO DAILY 08/05/17 08/05/17 History Allergies/Adverse Reactions: Allergies 3 Allergy/AdvReac Type Severity Reaction Status Date / Time aspirin Allergy Severe SHORTNESS Verified 08/05/17 18:34 OF BREATH Penicillins Allergy Severe Anaphylaxis Verified 08/05/17 18:34 lactose AdvReac DIARRHEA Verified 08/05/17 18:34 Review of Systems - Review of Systems All Systems: Reviewed & No Additional Complaints Except as Stated (I did a 12 point review of systems and it was negative other than that discussed in history present illness and that noted below.) - Constitutional Constitutional: REPORTS: Weight Loss (She states over the last 2 years.), Weakness - Respiratory Respiratory: REPORTS: Negative System Review - Cardiovascular Cardiovascular: REPORTS: Negative System Review - Gastrointestinal Gastrointestinal / Abdominal: REPORTS: Nausea, Vomiting - Musculoskeletal Musculoskeletal: REPORTS: Other (Osteomyelitis, arthritis problems, all chronic) - Hematlogic / Lymphatic Hematologic / Lymphatic: REPORTS: Easy Bleeding/Bruising, Other - Neurological Neurologic: REPORTS: Other (She had a fall couple of weeks ago, no imaging of her head done since that time.) Exam - Vitals Vital Signs: Vital Signs Temperature 98 F Temperature Source Temporal Artery Scan Pulse Rate [Pulse Oximeter 78 Right] Pulse Rate 72 Respiratory Rate 22 Blood Pressure [Left Arm] 111/72 Blood Pressure 111/82 Pulse Ox 96 Oxygen Delivery Method Room Air Height 5 ft 8 in Weight 132 lb 3.2 oz - General General Appearance: No Acute Distress, Cooperative - Head Head Exam: Normal Inspection, Normocephalic, Atraumatic - Eye Eye Exam: POSITIVE: No Scleral Icterus - ENT ENT Exam: POSITIVE: Mucous Membranes Dry - Neck Neck Exam: Normal Inspection, No Tenderness, No Lymphadenopathy, No Thyromegaly - Respiratory Respiratory Exam: POSITIVE: Clear to Auscultation - Bilaterally, Breathing Non Labored, Normal to Percussion and Palpation - Cardiovascular Cardiovascular Exam: POSITIVE: RRR, No Murmur, No Clicks, No Gallops, No Rubs, No JVD - GI/Abdominal GI/Abdominal Exam: POSITIVE: Normal Bowel Sounds, Non Tender, Non Distended, Soft, Ostomy Present (Stool output looks normal.) - Rectal Rectal Exam: POSITIVE: Deferred - External Exam: POSITIVE: Deferred Exam: POSITIVE: Deferred - Extremities Extremities Exam: POSITIVE: No Clubbing Present, No Edema Present, No Cyanosis Present Additional Extremities Exam Details: She has multiple surface ulcers and wounds that are packed with iodoform gauze with Mepilex dressings and other various skin dressings on both extremities bilaterally. - Back Back Exam: POSITIVE: No CVA Tenderness - Neurological Neurological Exam: POSITIVE: Alert, Oriented x 3, No Facial Droop, Speech Intact / Clear, Moves All Extremities Equally - Psychiatric Psychiatric Exam: POSITIVE: Normal Affect, Normal Mood - Integumentary Additional Integumentary Exam Details: Patient has multiple skin color changes consistent with chronic steroid use. Also has several bruising on upper and lower extremities in particular. Results - Labs CBC and BMP: 08/05/17 15:16 08/05/17 15:16 Additional Lab Results: Laboratory Results 08/05/17 08/05/17 08/05/17 Range/Units 15:00 15:16 15:16 WBC 10.96 H (4.8-10.8) 10^3/uL RBC 4.54 (4.20-5.40) 10^6/uL Hgb 13.5 (12.0-16.0) g/dL Hct 40.3 (37.0-47.0) % MCV 88.8 (81-99) FL MCH 29.7 (27-31) PG MCHC 33.5 (33-37) g/dL RDW Std Deviation 50.0 (39-50) fL RDW Coeff of [place] 15.7 H (11.5-14.5) % Plt Count 191 (140-350) 10*3/uL MPV 11.9 (7.4-12.2) FL Immature Gran % (Auto) 1.1 (0-5) % Neut % (Auto) 84.9 H (50-80) % Lymph % (Auto) 6.6 L (10-50) % [place] % (Auto) 7.2 (5-15) % Eos % (Auto) 0.1 (0-8) % Baso % (Auto) 0.1 (0-1) % Immature Gran # (Auto) 0.12 10*3/UL Neut # (Auto) 9.31 10*3/UL Lymph # (Auto) 0.72 10*3/uL [place] # (Auto) 0.79 (0.3-0.8) 10*3/UL Eos # (Auto) 0.01 10*3/UL Baso # (Auto) 0.01 10*3/UL WBC Morphology Comment Normal morphology (NORM) Plt Morphology Comment Normal morphology (NORM) RBC Morph Comment Normal morphology (NORM) PT 10.6 (9.7-11.4) secs INR 1.00 (0.00-5.90) N/A Sodium (135-145) meq/L Potassium (3.8-5.2) meq/L Chloride (98-112) meq/L Carbon Dioxide (23-33) meq/L Anion Gap (5-20) BUN (7-22) mg/dL Creatinine (0.50-1.20) mg/dL Estimated GFR (>60 ml/min/1.73m(2)) BUN/Creatinine Ratio (6-20) Glucose (78-110) mg/dL Calculated Osmolality (267-292) mOsm/kg Calcium (8.7-10.7) mg/dL Magnesium (1.6-2.4) mg/dL Total Bilirubin (0.3-1.2) mg/dL AST (8-39) IU/L ALT (9-52) IU/L Alkaline Phosphatase (38-126) IU/L NT-Pro-B Natriuret Pep 805 H (0-125) PG/ML Total Protein (6.1-8.0) g/dL Albumin (3.5-4.8) g/dL Globulin (2.50-4.10) g/dL Albumin/Globulin Ratio (1.3-2.0) mg/g Ur Collection Type Urine Color (Y) Urine Clarity (CLEAR) Urine pH (5.0-8.5) Ur Specific [place] (1.005-1.030) Urine Protein (NEG) mg/dl Urine Glucose (UA) (NEG) mg/dL Urine Ketones (NEG) Urine Occult Blood (NEG) Urine Nitrate (NEG) Urine Bilirubin (NEG) Urine Urobilinogen (0.2) EU/dL Ur Leukocyte Esterase (NEG) Urine RBC (NONE) /hpf Urine WBC (NONE) Ur Squamous Epith Cells (NONE) Ur Renal Epithelial Cell (NONE) Urine Crystals Urine Bacteria (NONE) Urine Casts (NONE) Urine Mucus (NONE) Urine Trichomonas (NONE) Urine Yeast (NONE) Ur Culture Indicated? 08/05/17 08/05/17 Range/Units 15:16 15:41 WBC (4.8-10.8) 10^3/uL RBC (4.20-5.40) 10^6/uL Hgb (12.0-16.0) g/dL Hct (37.0-47.0) % MCV (81-99) FL MCH (27-31) PG MCHC (33-37) g/dL RDW Std Deviation (39-50) fL RDW Coeff of [place] (11.5-14.5) % Plt Count (140-350) 10*3/uL MPV (7.4-12.2) FL Immature Gran % (Auto) (0-5) % Neut % (Auto) (50-80) % Lymph % (Auto) (10-50) % [place] % (Auto) (5-15) % Eos % (Auto) (0-8) % Baso % (Auto) (0-1) % Immature Gran # (Auto) 10*3/UL Neut # (Auto) 10*3/UL Lymph # (Auto) 10*3/uL [place] # (Auto) (0.3-0.8) 10*3/UL Eos # (Auto) 10*3/UL Baso # (Auto) 10*3/UL WBC Morphology Comment (NORM) Plt Morphology Comment (NORM) RBC Morph Comment (NORM) PT (9.7-11.4) secs INR (0.00-5.90) N/A Sodium 134 L (135-145) meq/L Potassium 3.5 L (3.8-5.2) meq/L Chloride 93 L (98-112) meq/L Carbon Dioxide 25 (23-33) meq/L Anion Gap 16 (5-20) BUN 21 (7-22) mg/dL Creatinine 0.8 (0.50-1.20) mg/dL Estimated GFR > 60 (>60 ml/min/1.73m(2)) BUN/Creatinine Ratio 26.25 H (6-20) Glucose 166 H (78-110) mg/dL Calculated Osmolality 284.0 (267-292) mOsm/kg Calcium 9.3 (8.7-10.7) mg/dL Magnesium 1.6 (1.6-2.4) mg/dL Total Bilirubin 0.5 (0.3-1.2) mg/dL AST 74 H (8-39) IU/L ALT 119 H (9-52) IU/L Alkaline Phosphatase 120 (38-126) IU/L NT-Pro-B Natriuret Pep (0-125) PG/ML Total Protein 6.3 (6.1-8.0) g/dL Albumin 4.0 (3.5-4.8) g/dL Globulin 2.3 L (2.50-4.10) g/dL Albumin/Globulin Ratio 1.70 (1.3-2.0) mg/g Ur Collection Type Cath specimen Urine Color Yellow (Y) Urine Clarity Clear (CLEAR) Urine pH 5.0 (5.0-8.5) Ur Specific [place] 1.010 (1.005-1.030) Urine Protein Trace (NEG) mg/dl Urine Glucose (UA) Negative (NEG) mg/dL Urine Ketones Negative (NEG) Urine Occult Blood Small H (NEG) Urine Nitrate Negative (NEG) Urine Bilirubin Negative (NEG) Urine Urobilinogen 0.2 (0.2) EU/dL Ur Leukocyte Esterase Negative (NEG) Urine RBC 0-2 (NONE) /hpf Urine WBC 0 (NONE) Ur Squamous Epith Cells None (NONE) Ur Renal Epithelial Cell None (NONE) Urine Crystals None Urine Bacteria None (NONE) Urine Casts None (NONE) Urine Mucus None (NONE) Urine Trichomonas None (NONE) Urine Yeast None (NONE) Ur Culture Indicated? Culture not set - Imaging Status: Image Reviewed by Me (I did look at the CT scan, the review the report.) Assessment and Plan - Patient Problems (1) Adrenal crisis Current Visit: Yes Status: Acute Code(s): E27.2 - Addison[place] crisis (2) Hypokalemia Current Visit: Yes Status: Acute Code(s): E87.6 - Hypokalemia (3) Hyponatremia Current Visit: Yes Status: Acute Code(s): E87.1 - Hypo-osmolality and hyponatremia (4) Chronic osteomyelitis Current Visit: Yes Status: Chronic Code(s): M86.60 - Other chronic osteomyelitis, unspecified site (5) Benign essential hypertension Current Visit: No Status: Chronic Onset Date: 11/22/14 Code(s): I10 - Essential (primary) hypertension (6) Coronary artery disease Current Visit: No Status: Chronic Code(s): I25.10 - Atherosclerotic heart disease of [place] coronary artery without angina pectoris Qualifiers: Coronary Disease-Associated Artery/Lesion type: [place] artery Tribe vs. transplanted heart: [place] heart Associated angina: without angina Qualified Code(s): I25.10 - Atherosclerotic heart disease of [place] coronary artery without angina pectoris - Assessment / Plan Additional Assessment/Plan Details: Admit the patient. I discussed with the emergency room physician I think it would be best to get a random cortisol level which is being done and that which give her some hydrocortisone. I have written for 50 mg IV every 6 hours. I do not think this patient will be able to titrate off the steroids as she has been on them through a significant portion of her life now. Replace electrolytes. Normal saline. Await cortisol level that was done randomly. Try to reduce medications where we can Given her fall 2 weeks ago, continued nausea, I will go ahead and repeat CT scan of the head to make sure not ill with a subdural hematoma that could certainly cause similar symptoms. There is nothing focal, she is moving her extremities equally and speech is intact and clear. She is full code. She is on digoxin as well and I'll check a digoxin level as this could be dig toxicity as well.
[2017-08-05] MEDS ORDERED: Magnesium Sulfate 2gm (Premix) 2 GM/50 ML BAG IV ONE (21:32)
[2017-08-05] MEDS: POTASSIUM CHLORIDE 20 MEQ TAB PO SCH (21:32)
--- NOTE | 2017-08-05 22:42 | DI ---
EXAM: CT Head Without Intravenous Contrast CLINICAL HISTORY: ITS.REASON fall two weeks ago, nausea Physician Notes: Tech Comments: TECHNIQUE: Axial computed tomography images of the head/brain without intravenous contrast. COMPARISON: CT head dated 07/09/2017. FINDINGS: Brain: Unchanged moderate patchy foci of low attenuation throughout the supratentorial white matter and deep [place] nuclei. No evidence of acute intracranial hemorrhage. No mass effect or herniation. Ventricles: Unremarkable. No ventriculomegaly. Bones/joints: No acute fracture. Soft tissues: Unremarkable. Vasculature: Calcification of the distal internal carotid arteries and vertebrobasilar system. Sinuses: Unremarkable as visualized. Mastoid air cells: Unremarkable as visualized. Other findings: Reidentified mucoperiosteal thickening of the right maxillary antrum with complete opacification and central high attenuation. IMPRESSION: No evidence of acute intracranial hemorrhage. Grossly unchanged moderate presumed small vessel ischemic disease. Reidentified chronic right maxillary sinusitis with central inspissated secretions or possibly allergic fungal sinusitis.
[2017-08-06] MEDS ORDERED: Sodium Chloride 0.9% 1,000 ML PRIMARY IV ONE (00:58)
[2017-08-06] MEDS: HYDROCORTISONE 100 MG/2 ML IVP SCH ×2 (05:15→11:52)
[2017-08-06 05:51] LABS: BASOPHILS # (AUTO) 0 10*3/UL; BASOPHILS % (AUTO) 0 % (0-1); EOSINOPHILS # (AUTO) 0 10*3/UL; EOSINOPHILS % (AUTO) 0 % (0-8); Hematocrit [HCT] 41.2 % (37.0-47.0); Hemoglobin [HGB] 14.2 g/dL (12.0-16.0); LYMPHOCYTES # (AUTO) 0.74 10*3/uL; MEAN CORPUSCULAR HEMOGLOBIN 30.9 PG (27-31); MEAN CORPUSCULAR HGB CONC 34.5 g/dL (33-37); MEAN CORPUSCULAR VOLUME 89.8 FL (81-99); MEAN PLATELET VOLUME 12.7 FL (7.4-12.2); MONOCYTES # (AUTO) 0.76 10*3/UL (0.3-0.8); MONOCYTES % (AUTO) 9.8 % (5-15); NEUTROPHILS # (AUTO) 6.15 10*3/UL; NEUTROPHILS % (AUTO) 79.6 % (50-80); RED BLOOD COUNT 4.59 10^6/uL (4.20-5.40)
[2017-08-06] MEDS: Sodium Chloride 0.9% 1,000 ML PRIMARY IV SCH ×2 (05:56→13:29)
[2017-08-06 05:58] LABS: BLOOD UREA NITROGEN 20 mg/dL (7-22); SERUM ALBUMIN 3.5 g/dL (3.5-4.8)
[2017-08-06 05:59] LABS: PLATELET MORPHOLOGY COMMENT NORMAL MORPHOLOGY (NORM); RBC MORPHOLOGY COMMENT NORMAL MORPHOLOGY (NORM); WBC MORPHOLOGY COMMENT NORMAL MORPHOLOGY (NORM)
[2017-08-06] MEDS: OMEPRAZOLE 20 MG CAPSULE PO SCH (08:49)
[2017-08-06] MEDS ORDERED: METOPROLOL SUCCINATE 50 MG SR 24H TABLET PO SCH (09:00)
[2017-08-06] MEDS ORDERED: DIGOXIN 250 MCG TABLET PO SCH (09:00)
[2017-08-06] MEDS ORDERED: FUROSEMIDE 40 MG TABLET PO SCH (09:00)
[2017-08-06] MEDS ORDERED: LISINOPRIL 10 MG TABLET PO SCH (09:00)
[2017-08-06] MEDS ORDERED: ENOXAPARIN SODIUM 40 MG/0.4 ML SYRINGE SUBCUT SCH (09:00)
[2017-08-06] MEDS ORDERED: ALLOPURINOL 300 MG TABLET PO SCH (09:00)
[2017-08-06] MEDS: CLOPIDOGREL 75 MG TABLET PO SCH (11:14)
[2017-08-06] MEDS: POTASSIUM CHLORIDE 20 MEQ TAB PO SCH (11:19)
--- NOTE | 2017-08-06 11:23 | DI ---
CT Maxfacial WO/con Face Sinus,08/06/2017 10:16 AM: Clinical History: Sinus infection Previous Exam: None at this facility. Findings: Multiple helically acquired CT images are obtained through the paranasal sinuses without contrast, an d demonstrate soft tissue thickening within the right maxillary sinus. There is some destruction of t he medial wall of the right maxillary sinus. There is also some soft tissue density near the remnants of the middle turbinate. The frontal sinuses, left maxillary sinus, sphenoid sinus and visualized portions of the ethmoid sinu ses are unremarkable. Intracranial structures are not well evaluated but are grossly normal. There is some increased densit y within the soft tissue of the right maxillary sinus. Impression: 1. Complete opacification of the right maxillary sinus despite takedown of the entire medial wall and the middle and superior turbinates. The hyperdense nature of this area is most consistent with hemor rhage. Cannot rule out the possibility of an atypical infection such as a fungal infection.
[2017-08-06] MEDS ORDERED: HYDROCORTISONE 100 MG/2 ML IVP SCH (11:47)
[2017-08-06] MEDS ORDERED: NORMAL SALINE 10 ML SYRINGE FLUSH IVP PRN (12:00)
[2017-08-06] MEDS: CLARITHROMYCIN 500 MG PO SCH (13:30)
--- NOTE | 2017-08-06 15:11 | DI ---
XR ESOPHAGRAM,08/06/2017 7:00 AM: Clinical History: Chronic nausea. Previous Exam: None at this facility. Findings: Multiple images are obtained as part of an esophagram, and demonstrate a normal esophagus with normal course, caliber and distensibility. There are no filling defects. The mucosal pattern is normal fill ing There is no stenosis and no diverticulum. The piriform sinuses and vallecula are normal. Visualized portions of the cervical spine are unremarkable. Gastroesophageal junction is unremarkable. The stomach is not well evaluated. Impression: Normal esophagram.
--- NOTE | 2017-08-06 15:23 | DCSUMMARY ---
Hospitalization Summary Admit Date: 08/05/2017 Discharge Date: 08/06/17 Primary Diagnosis:: adrenal crisis, improved/resolved Secondary Diagnosis:: Adrenal insufficiency Hospital Course: This very pleasant 72-year-old female with chronic osteomyelitis, recurrent abdominal abscesses status post colectomy with end ostomy placement, chronic steroid dependence, amongst other problems, who came in with recurrent abdominal pain and malaise, hyponatremia, hypokalemia, and nausea. This is been persistent for some time. Despite multiple evaluations, no real diagnosis is been determined. The patient has a history of having significantly decreased random cortisol levels in the chart in 2012, and I suspect that she has underlying adrenal insufficiency. We place her on hydrocortisone, stress doses and she significantly improved within 24 hours and was ready to go home. I was a little shocked that she improved this quickly. I expected that this will take at least a couple days to improve. In the meantime, I did do some studies to also look at other potential causes of nausea and vomiting including esophagram study that is pending at this time. May also have a chronic fungal infection in right maxillary sinus. Will ask ID to consider, and pushed up films to [place]. We did do PT and OT for wound care, administered IV fluids, and have determined that we will keep her on hydrocortisone, 2 tablets in the morning and 1 tablet at about 5 or 6 PM. Her prednisone at this time. A random cortisol level is pending at the time of this dictation as well. Given the patient has no other complaints, like joints of been improved and corrected, she has no further nausea or vomiting or abdominal pain, she wishes to go home, and I see no compelling reason to continue workup beyond today. Has follow-up with infectious disease for chronic osteomyelitis, she has follow- up with podiatry for her chronic decubitus ulcers and osteomyelitis, and we will arrange follow-up with her primary doctor within the next 2 weeks. Assessment and Plan: 1. As per discharge assessments noted 2. Disposition: Patient is discharged home. 3. Condition on discharge, stable and improved. 4. Diet: regular diet 5. Activities: resume normal activities 6. Follow-Up: 1. Dr. Mcghee. 2. Dr. Nobles this Friday 3. Dr. Cazares tomorrow. 7. Medications at the Time of Discharge: The only changes will be to go to hydrocortisone 10 mg , 2 tablets in AM, 1 tablet in PM and stop prednisone also will stop keflex. 8. Time, care, counseling and coordination of care for this discharge is greater than 30 minutes. Exam - Vitals Vital Signs: Vital Signs Temperature 97.4 F Temperature Source Temporal Artery Scan Pulse Rate [Pulse Oximeter 81 Right] Pulse Rate 72 Respiratory Rate 18 Blood Pressure [Left Arm] 101/55 Blood Pressure 111/82 Pulse Ox 97 Oxygen Delivery Method Room Air Height 5 ft 8 in Weight 135 lb 6.4 oz - General General Appearance: No Acute Distress, Cooperative - Eye Eye Exam: POSITIVE: No Scleral Icterus - ENT ENT Exam: POSITIVE: Mucous Membranes Moist - Respiratory Respiratory Exam: POSITIVE: Clear to Auscultation - Bilaterally, Breathing Non Labored - Cardiovascular Cardiovascular Exam: POSITIVE: RRR, No Murmur, No Clicks, No Gallops, No Rubs, No JVD - GI/Abdominal GI/Abdominal Exam: POSITIVE: Normal Bowel Sounds, Non Tender, Non Distended, Soft, Ostomy Present - Extremities Extremities Exam: POSITIVE: No Clubbing Present, No Edema Present, No Cyanosis Present - Neurological Neurological Exam: POSITIVE: Alert, Oriented x 3, No Facial Droop, Speech Intact / Clear Data Peritnent Studies: Laboratory Results 08/05/17 08/05/17 08/05/17 Range/Units 15:00 15:16 15:16 WBC 10.96 H (4.8-10.8) 10^3/uL RBC 4.54 (4.20-5.40) 10^6/uL Hgb 13.5 (12.0-16.0) g/dL Hct 40.3 (37.0-47.0) % MCV 88.8 (81-99) FL MCH 29.7 (27-31) PG MCHC 33.5 (33-37) g/dL RDW Std Deviation 50.0 (39-50) fL RDW Coeff of Jackson 15.7 H (11.5-14.5) % Plt Count 191 (140-350) 10*3/uL MPV 11.9 (7.4-12.2) FL Immature Gran % (Auto) 1.1 (0-5) % Neut % (Auto) 84.9 H (50-80) % Lymph % (Auto) 6.6 L (10-50) % Aurora % (Auto) 7.2 (5-15) % Eos % (Auto) 0.1 (0-8) % Baso % (Auto) 0.1 (0-1) % Immature Gran # (Auto) 0.12 10*3/UL Neut # (Auto) 9.31 10*3/UL Lymph # (Auto) 0.72 10*3/uL [place] # (Auto) 0.79 (0.3-0.8) 10*3/UL Eos # (Auto) 0.01 10*3/UL Baso # (Auto) 0.01 10*3/UL WBC Morphology Comment Normal morphology (NORM) Plt Morphology Comment Normal morphology (NORM) RBC Morph Comment Normal morphology (NORM) PT 10.6 (9.7-11.4) secs INR 1.00 (0.00-5.90) N/A Sodium (135-145) meq/L Potassium (3.8-5.2) meq/L Chloride (98-112) meq/L Carbon Dioxide (23-33) meq/L Anion Gap (5-20) BUN (7-22) mg/dL Creatinine (0.50-1.20) mg/dL Estimated GFR (>60 ml/min/1.73m(2)) BUN/Creatinine Ratio (6-20) Glucose (78-110) mg/dL Calculated Osmolality (267-292) mOsm/kg Calcium (8.7-10.7) mg/dL Magnesium (1.6-2.4) mg/dL Total Bilirubin (0.3-1.2) mg/dL AST (8-39) IU/L ALT (9-52) IU/L Alkaline Phosphatase (38-126) IU/L NT-Pro-B Natriuret Pep 805 H (0-125) PG/ML Total Protein (6.1-8.0) g/dL Albumin (3.5-4.8) g/dL Globulin (2.50-4.10) g/dL Albumin/Globulin Ratio (1.3-2.0) mg/g Ur Collection Type Urine Color (Y) Urine Clarity (CLEAR) Urine pH (5.0-8.5) Ur Specific [place] (1.005-1.030) Urine Protein (NEG) mg/dl Urine Glucose (UA) (NEG) mg/dL Urine Ketones (NEG) Urine Occult Blood (NEG) Urine Nitrate (NEG) Urine Bilirubin (NEG) Urine Urobilinogen (0.2) EU/dL Ur Leukocyte Esterase (NEG) Urine RBC (NONE) /hpf Urine WBC (NONE) Ur Squamous Epith Cells (NONE) Ur Renal Epithelial Cell (NONE) Urine Crystals Urine Bacteria (NONE) Urine Casts (NONE) Urine Mucus (NONE) Urine Trichomonas (NONE) Urine Yeast (NONE) Ur Culture Indicated? Digoxin (0.8-2.0) ng/mL 08/05/17 08/05/17 08/05/17 Range/Units 15:16 15:41 21:45 WBC (4.8-10.8) 10^3/uL RBC (4.20-5.40) 10^6/uL Hgb (12.0-16.0) g/dL Hct (37.0-47.0) % MCV (81-99) FL MCH (27-31) PG MCHC (33-37) g/dL RDW Std Deviation (39-50) fL RDW Coeff of [place] (11.5-14.5) % Plt Count (140-350) 10*3/uL MPV (7.4-12.2) FL Immature Gran % (Auto) (0-5) % Neut % (Auto) (50-80) % Lymph % (Auto) (10-50) % [place] % (Auto) (5-15) % Eos % (Auto) (0-8) % Baso % (Auto) (0-1) % Immature Gran # (Auto) 10*3/UL Neut # (Auto) 10*3/UL Lymph # (Auto) 10*3/uL [place] # (Auto) (0.3-0.8) 10*3/UL Eos # (Auto) 10*3/UL Baso # (Auto) 10*3/UL WBC Morphology Comment (NORM) Plt Morphology Comment (NORM) RBC Morph Comment (NORM) PT (9.7-11.4) secs INR (0.00-5.90) N/A Sodium 134 L (135-145) meq/L Potassium 3.5 L (3.8-5.2) meq/L Chloride 93 L (98-112) meq/L Carbon Dioxide 25 (23-33) meq/L Anion Gap 16 (5-20) BUN 21 (7-22) mg/dL Creatinine 0.8 (0.50-1.20) mg/dL Estimated GFR > 60 (>60 ml/min/1.73m(2)) BUN/Creatinine Ratio 26.25 H (6-20) Glucose 166 H (78-110) mg/dL Calculated Osmolality 284.0 (267-292) mOsm/kg Calcium 9.3 (8.7-10.7) mg/dL Magnesium 1.6 (1.6-2.4) mg/dL Total Bilirubin 0.5 (0.3-1.2) mg/dL AST 74 H (8-39) IU/L ALT 119 H (9-52) IU/L Alkaline Phosphatase 120 (38-126) IU/L NT-Pro-B Natriuret Pep (0-125) PG/ML Total Protein 6.3 (6.1-8.0) g/dL Albumin 4.0 (3.5-4.8) g/dL Globulin 2.3 L (2.50-4.10) g/dL Albumin/Globulin Ratio 1.70 (1.3-2.0) mg/g Ur Collection Type Cath specimen Urine Color Yellow (Y) Urine Clarity Clear (CLEAR) Urine pH 5.0 (5.0-8.5) Ur Specific [place] 1.010 (1.005-1.030) Urine Protein Trace (NEG) mg/dl Urine Glucose (UA) Negative (NEG) mg/dL Urine Ketones Negative (NEG) Urine Occult Blood Small H (NEG) Urine Nitrate Negative (NEG) Urine Bilirubin Negative (NEG) Urine Urobilinogen 0.2 (0.2) EU/dL Ur Leukocyte Esterase Negative (NEG) Urine RBC 0-2 (NONE) /hpf Urine WBC 0 (NONE) Ur Squamous Epith Cells None (NONE) Ur Renal Epithelial Cell None (NONE) Urine Crystals None Urine Bacteria None (NONE) Urine Casts None (NONE) Urine Mucus None (NONE) Urine Trichomonas None (NONE) Urine Yeast None (NONE) Ur Culture Indicated? Culture not set Digoxin 1.7 (0.8-2.0) ng/mL 08/06/17 08/06/17 Range/Units 04:42 04:42 WBC 7.73 (4.8-10.8) 10^3/uL RBC 4.59 (4.20-5.40) 10^6/uL Hgb 14.2 (12.0-16.0) g/dL Hct 41.2 (37.0-47.0) % MCV 89.8 (81-99) FL MCH 30.9 (27-31) PG MCHC 34.5 (33-37) g/dL RDW Std Deviation 50.6 H (39-50) fL RDW Coeff of [place] 15.7 H (11.5-14.5) % Plt Count 174 (140-350) 10*3/uL MPV 12.7 H (7.4-12.2) FL Immature Gran % (Auto) 1.0 (0-5) % Neut % (Auto) 79.6 (50-80) % Lymph % (Auto) 9.6 L (10-50) % [place] % (Auto) 9.8 (5-15) % Eos % (Auto) 0 (0-8) % Baso % (Auto) 0 (0-1) % Immature Gran # (Auto) 0.08 10*3/UL Neut # (Auto) 6.15 10*3/UL Lymph # (Auto) 0.74 10*3/uL [place] # (Auto) 0.76 (0.3-0.8) 10*3/UL Eos # (Auto) 0 10*3/UL Baso # (Auto) 0 10*3/UL WBC Morphology Comment Normal morphology (NORM) Plt Morphology Comment Normal morphology (NORM) RBC Morph Comment Normal morphology (NORM) PT (9.7-11.4) secs INR (0.00-5.90) N/A Sodium 137 (135-145) meq/L Potassium 4.6 D (3.8-5.2) meq/L Chloride 102 (98-112) meq/L Carbon Dioxide 24 (23-33) meq/L Anion Gap 11 (5-20) BUN 20 (7-22) mg/dL Creatinine 0.8 (0.50-1.20) mg/dL Estimated GFR > 60 (>60 ml/min/1.73m(2)) BUN/Creatinine Ratio 25.00 H (6-20) Glucose 186 H (78-110) mg/dL Calculated Osmolality 291.0 (267-292) mOsm/kg Calcium 8.7 (8.7-10.7) mg/dL Magnesium 2.7 H (1.6-2.4) mg/dL Total Bilirubin 0.4 (0.3-1.2) mg/dL AST 99 H (8-39) IU/L ALT 97 H (9-52) IU/L Alkaline Phosphatase 103 (38-126) IU/L NT-Pro-B Natriuret Pep (0-125) PG/ML Total Protein 6.0 L (6.1-8.0) g/dL Albumin 3.5 (3.5-4.8) g/dL Globulin 2.5 (2.50-4.10) g/dL Albumin/Globulin Ratio 1.40 (1.3-2.0) mg/g Ur Collection Type Urine Color (Y) Urine Clarity (CLEAR) Urine pH (5.0-8.5) Ur Specific [place] (1.005-1.030) Urine Protein (NEG) mg/dl Urine Glucose (UA) (NEG) mg/dL Urine Ketones (NEG) Urine Occult Blood (NEG) Urine Nitrate (NEG) Urine Bilirubin (NEG) Urine Urobilinogen (0.2) EU/dL Ur Leukocyte Esterase (NEG) Urine RBC (NONE) /hpf Urine WBC (NONE) Ur Squamous Epith Cells (NONE) Ur Renal Epithelial Cell (NONE) Urine Crystals Urine Bacteria (NONE) Urine Casts (NONE) Urine Mucus (NONE) Urine Trichomonas (NONE) Urine Yeast (NONE) Ur Culture Indicated? Digoxin (0.8-2.0) ng/mL [address] [facility] [place] [address] PH: DD: [phone] FAX: [phone] ~DIAGNOSTIC IMAGING REPORT~ Patient: Ester Meek : 1945 Sex: F Age: 72 Exam Name: CT Maxfacial WO/con Face Sinus Exam Date: 08/06/17 Report # : [id number] CPT Code: 69103 EMR/MR #: [id number] Ordering: SONNY URBANO Admiting: SONNY URBANO DO Primary: Venus Mcghee MD Attending: SONNY URBAON DO Signed CT Maxfacial WO/con Face Sinus,08/06/2017 10:16 AM: Clinical History: Sinus infection Previous Exam: None at this facility. Findings: Multiple helically acquired CT images are obtained through the paranasal sinuses without contrast, and demonstrate soft tissue thickening within the right maxillary sinus. There is some destruction of the medial wall of the right maxillary sinus. There is also some soft tissue density near the remnants of the middle turbinate. The frontal sinuses, left maxillary sinus, sphenoid sinus and visualized portions of the ethmoid sinuses are unremarkable. Intracranial structures are not well evaluated but are grossly normal. There is some increased density within the soft tissue of the right maxillary sinus. Impression: 1. Complete opacification of the right maxillary sinus despite takedown of the entire medial wall and the middle and superior turbinates. The hyperdense nature of this area is most consistent with hemorrhage. Cannot rule out the possibility of an atypical infection such as a fungal infection. Dictated By: 08/06/17 1111 TAYLER BILLY MD. Signed By: 08/06/17 1123 TAYLER BILLY MD. [address] [facility] [place] [address] PH: DD: [phone] FAX: [phone] ~DIAGNOSTIC IMAGING REPORT~ Patient: Ester Meek : 1945 Sex: F Age: 72 Exam Name: US Retroperitoneum Exam Date: 08/05/17 Report # : [id number] CPT Code: 22331 EMR/MR #: [id number] Ordering: SONNY URBANO Admiting: SONNY URBANO DO Primary: Venus Mcghee MD Attending: SONNY URBANO DO Signed US Retroperitoneum,08/05/2017 5:14 PM: Clinical History: Left renal mass Previous Exam: 08/01/17 Findings: Multiple grayscale and color Doppler sonographic images are obtained through the retroperitoneum, and demonstrate normal-appearing right kidney measuring 9.2 cm in length without hydronephrosis nor nephrolithiasis. The left kidney is also normal measuring 9.4 cm in length. There is no hydronephrosis nor nephrolithiasis. There is no renal mass identified. Impression: No evidence of renal mass. Dictated By: 08/05/17 1758 TAYLER BILLY MD. Signed By: 08/05/17 1800 TAYLER BILLY MD. pending is esophagram. Patient Problems - Patient Problem List (1) Adrenal insufficiency Current Visit: Yes Status: Acute Code(s): E27.40 - Unspecified adrenocortical insufficiency Category: Medical (2) Adrenal crisis Current Visit: Yes Status: Resolved Code(s): E27.2 - Addisonian crisis Category: Medical (3) Hypokalemia Current Visit: Yes Status: Acute Code(s): E87.6 - Hypokalemia Category: Medical (4) Hyponatremia Current Visit: Yes Status: Acute Code(s): E87.1 - Hypo-osmolality and hyponatremia Category: Medical (5) Chronic osteomyelitis Current Visit: Yes Status: Chronic Code(s): M86.60 - Other chronic osteomyelitis, unspecified site Category: Medical (6) Benign essential hypertension Current Visit: No Status: Chronic Onset Date: 11/22/14 Code(s): I10 - Essential (primary) hypertension Category: Medical (7) Coronary artery disease Current Visit: No Status: Chronic Code(s): I25.10 - Atherosclerotic heart disease of nondalton coronary artery without angina pectoris Qualifiers: Coronary Disease-Associated Artery/Lesion type: nondalton artery [place] vs. transplanted heart: nondalton heart Associated angina: without angina Qualified Code(s): I25.10 - Atherosclerotic heart disease of nondalton coronary artery without angina pectoris Category: Medical
[2017-08-06 17:05] VITALS: BP 91/50; RESP 20; TEMP 98.9; O2SAT 96
[2017-08-07] MEDS ORDERED: CHOLECALCIFEROL 1000 IU TABLET PO SCH (09:00)
[2017-08-07] MEDS ORDERED: DIGOXIN 125 MCG TABLET PO SCH (09:00)
--- NOTE | 2017-08-08 12:31 | PTI REPORT ---
Thank you for the referral of Ester Meek. She was seen on 08/06/17 for an inpatient evaluation secondary to bilateral lower extremity open wounds. SUBJECTIVE: The patient is a 72-year-old female. The patient reports she has been having a difficult time participating with outpatient physical therapy, both for strengthening as well as her dressing changes; she states they haven't been changed in a while due to her inability to get in due to feeling poorly. She states she went to the emergency room about a week ago and they found nothing wrong and discharged her. Yesterday, the patient was not feeling well; however , her doctor could not get her in due to her missing her appointment the day before due to the wind. She was sent up to urgent care; urgent care was not sure what was the matter with her and they sent her to the emergency room where subsequently she underwent a battery of tests and was admitted. She requested the physical therapy evaluation to have her bilateral lower extremity dressings changed. The patient is under the understanding that she will be discharged later this evening and has a follow up with Dr. Cazares tomorrow at 4:00 PM. PAST MEDICAL HISTORY: Past medical history can be found in the patient's medical record. OBJECTIVE FINDINGS: The patient presents with multiple bilateral lower extremity wounds. This patient is very familiar to us in physical therapy due to us being the ones treating her in the outpatient setting under Dr. Mcghee. She is currently also being seen by Dr. Cazares, Dr. Lopes, and [facility]. The patient presents with wounds on the right lateral leg at the proximal fibula, the plantar surface of the right lower extremity, the left lower anterior leg, the lateral 5th toe, and the medial great toe. Upon dressing removal, the wounds on the left lower extremity at this time do not demonstrate any type of drainage at this time. The wound on the right lateral leg on the proximal fibula demonstrates a scant amount of serosanguineous drainage. The most concerning wound is on the plantar surface of the right lower extremity with immeasurable depth at this time; however, the therapist is concerned about the presence of osteomyelitis or her high risk for this. Prior to dressing removal of that right lower extremity, we had made a make-shift pressure relief insole out of foam dressing on the right lower extremity; however, as an outpatient we feel that this is inadequate and are pushing for the patient to be molded for custom orthotics with pressure relief cut out at this open area. ASSESSMENT: Problem List: Risk of infection Open wounds Physical Therapy Goals: To be met by discharge from inpatient: Patient will promote sterile wound healing. TREATMENT PLAN: Patient will be seen on a PRN basis for wound care. INITIAL TREATMENT: Treatment today consisted of the initial evaluation followed by removing all dressings and cleansing all the areas with wound cleanser. The right lateral leg was dressed with 6X6 Mepilex and Multidex. The right plantar surface wound was dressed with a 3X3 Mepilex with Multidex in the wound bed followed by application of a temporary foam cut-out for pressure relief on that open area followed by a 3" Coban to secure it in place. The 5th and 1st toes of the left lower extremity were cleansed with wound cleanser followed by application of foam tape to help with protection of that area and the left anterior leg area was dressed with 4X4 gauze and Mepilex. [facility] FACILITYGeetha
== END 2017-08-06 17:11 | disposition home or self-care (01) | DRG 644 ==
LOC: ER 14:38 → MED/SURG 17:07
PROVIDERS: ADMIT Family Medicine; ATTEND Family Medicine

== ENCOUNTER 2017-08-14 19:55 | Inpatient (IN) ==
[2017-08-14] MEDS ORDERED: NORMAL SALINE 10 ML SYRINGE FLUSH IVP PRN (20:26)
[2017-08-14] MEDS ORDERED: Sodium Chloride 0.9% 1,000 ML PRIMARY IV ONE (20:26)
[2017-08-14] MEDS ORDERED: HYDROCORTISONE SOD SUCC IV ONE (20:39)
[2017-08-14] MEDS ORDERED: SODIUM CHLORIDE 0.9% IV ONE (20:39)
--- NOTE | 2017-08-14 20:49 | EKG ---
[address] [place] [address] [place] [address] Measurements Intervals [place] Rate: 104 P: 5 IN: 164 QRS: -44 QRSD: 147 T: 36 QT: 366 QTc: 426 Interpretive Statements SINUS TACHYCARDIA WITH OCCASIONAL VENTRICULAR PREMATURE COMPLEXES POSSIBLE LEFT ATRIAL ENLARGEMENT [-0.1mV P WAVE IN V1/V2] MARKED LEFT AXIS DEVIATION [QRS AXIS < -30] RIGHT BUNDLE BRANCH BLOCK [120+ ms QRS DURATION, UPRIGHT V1, 40+ ms S IN I/aVL/V4/V5/V6] BORDERLINE SEPTAL MYOCARDIAL INFARCTION [30 ms Q WAVE IN V1/V2], OF INDETERMINATE AGE ST DEPRESSION, CONSIDER SUBENDOCARDIAL INJURY [0.1+ mV ST DEPRESSION] Compared to ECG 08/01/2017 09:18:08 Ventricular premature complex(es) now present Left-axis deviation now present Myocardial infarct finding now present ST (T wave) deviation now present Sinus rhythm no longer present Electronically Signed On 08-15-17 08:52:05 MDT by Leonardo Polk MD [email or web address]
[2017-08-14 20:55] LABS: BASOPHILS # (AUTO) 0.04 10*3/UL; BASOPHILS % (AUTO) 0.4 % (0-1); EOSINOPHILS # (AUTO) 0.08 10*3/UL; EOSINOPHILS % (AUTO) 0.8 % (0-8); Hematocrit [HCT] 33.8 % (37.0-47.0); Hemoglobin [HGB] 11.1 g/dL (12.0-16.0); LYMPHOCYTES # (AUTO) 2.04 10*3/uL; MEAN CORPUSCULAR HEMOGLOBIN 29.8 PG (27-31); MEAN CORPUSCULAR HGB CONC 32.8 g/dL (33-37); MEAN CORPUSCULAR VOLUME 90.6 FL (81-99); MONOCYTES # (AUTO) 1.67 10*3/UL (0.3-0.8); MONOCYTES % (AUTO) 16.5 % (5-15); NEUTROPHILS # (AUTO) 6.24 10*3/UL; NEUTROPHILS % (AUTO) 61.6 % (50-80); RED BLOOD COUNT 3.73 10^6/uL (4.20-5.40)
[2017-08-14 20:58] LABS: PLATELET MORPHOLOGY COMMENT NORMAL MORPHOLOGY (NORM); RBC MORPHOLOGY COMMENT NORMAL MORPHOLOGY (NORM); WBC MORPHOLOGY COMMENT NORMAL MORPHOLOGY (NORM)
[2017-08-14 21:08] LABS: BLOOD UREA NITROGEN 8 mg/dL (7-22); BUN/CREATININE RATIO 11.42 (6-20); SERUM ALBUMIN 3.4 g/dL (3.5-4.8)
[2017-08-14] MEDS ORDERED: DEXTROSE 50%-WATER SYRINGE 50 ML SYRINGE IVP PRN (21:28)
[2017-08-14 21:41] LABS: VENOUS PH 7.49 (7.32-7.42)
--- NOTE | 2017-08-14 22:49 | DI ---
EXAM: XR Chest, 2 Views CLINICAL HISTORY: hypoxia TECHNIQUE: Frontal and lateral views of the chest. COMPARISON: 08/01/17 FINDINGS: Lungs: No acute airspace opacities. Pleural space: Small left pleural effusion. No pneumothorax. Heart: Heart size is within normal limits. Mediastinum: Unremarkable. Bones/joints: Partial visualization of lumbar fusion hardware. IMPRESSION: Small left pleural effusion.
--- NOTE | 2017-08-14 23:06 | DI ---
EXAM: CT Angiography Chest Without and With Intravenous Contrast CLINICAL HISTORY: hypoxia; elevated d-dimer TECHNIQUE: Axial computed tomographic angiography images of the chest without and with intravenous contrast using pulmonary embolism protocol. MIP reconstructed images were created and reviewed. CONTRAST: 100 mL of Isovue 370 administered intravenously. COMPARISON: None. FINDINGS: Pulmonary arteries: Small filling defect in a subsegmental branch of the left lower lobe (series 3 image 54) is consistent with a pulmonary embolus. No other pulmonary emboli. Aorta: Severe atherosclerosis of the aorta extending into the proximal great vessels. There is severe atherosclerotic plaque of the left subclavian artery with greater than 90% stenosis at the proximal aspect (series 3 image 18). Reconstitution of flow of the distal subclavian artery may be related to reversal of flow from the vertebral artery and could indicate subclavian steal. Consider ultrasound duplex for further evaluation. Lungs: No acute airspace opacities. Pleural space: Small left pleural effusion. Heart: Unremarkable. No evidence of right heart strain. Small pericardial effusion. Thyroid: Calcified nodule measuring 1.3 cm in the left thyroid lobe is indeterminate. Additional scattered coarse calcifications are noted in both thyroid lobes. Consider ultrasound for further evaluation. Bones/joints: Old appearing compression fracture of the T8 with 50% loss of height and bony retropulsion. Soft tissues: Unremarkable. Lymph nodes: No enlarged or abnormal lymph nodes. Spleen: Small cyst in the spleen is most likely benign. IMPRESSION: 1. Small pulmonary embolus in the subsegmental branch of the left lower lobe. No evidence of right heart strain. 2. 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 Recommend ultrasound duplex to evaluate for subclavian steal. 3. Small left pleural effusion. [employer] 08/14/17 23:04 Call Doctor Regarding Pulmonary Embolism, called Dr. Al on 08/14 23:03 (-06:00)
[2017-08-15] MEDS ORDERED: Sodium Chloride 0.9% 1,000 ML PRIMARY IV ONE ×2 (00:32→04:00)
[2017-08-15] MEDS ORDERED: LIDOCAINE W/ SODIUM BICARB 0.5 ML SYR SUBD PRN (00:46)
[2017-08-15] MEDS ORDERED: POTASSIUM CHLORIDE 20 MEQ TAB PO SCH ×2 (00:46→07:00)
[2017-08-15] MEDS ORDERED: ENOXAPARIN SODIUM 60 MG/0.6 ML SYRINGE SUBCUT SCH ×4 (00:46→21:00)
[2017-08-15] MEDS ORDERED: NORMAL SALINE 10 ML SYRINGE FLUSH IVP PRN (00:46)
[2017-08-15] MEDS ORDERED: ONDANSETRON 4 MG/2 ML VIAL IVP PRN (00:46)
--- NOTE | 2017-08-15 00:58 | PDOC ---
HPI - History of Present Illness Date of Service: 08/14/17 Time of Service: 23:25 Chief Complaint: Nausea, weakness, body aches few days duration History of Present Illness: This is a 72 years old female with medical history that includes history of coronary artery disease with previous stents, CHF, hypertension, history of previous pelvic abscess for which he needed the surgery ended up with a colostomy, history of being on steroid for arthritis for a while. She said she' s been having nausea and some vomiting and weakness for a long time. She came in earlier this month and was admitted to the hospital by Dr. Borjas she was hypokalemic, she had a random cortisol that's was borderline low and so she was put on IV hydrocortisone and treated as adrenal insufficiency and was discharged on hydrocortisone. She said she did well for 2 days, however her symptoms recurred with nausea and dry heaving and not drinking or eating well she came to the ER on the and was sent home and then she came back again with the same feeling of nausea and weakness, shortness of breath also. She did report body aches all over. Evaluation in the ER revealed hypokalemia, she did have elevated d-dimer she had a CT of the chest which showed a subsegmental PE. She did have low blood pressure initially in the 80s was giving IV fluid and hydrocortisone blood pressure did improve to the 90s and was admitted. Apart from feeling nauseated and weak, she is denying other symptoms. She denied chest pain. Her appetite is down. He said she lost weight the last 3 years about 70 pounds. Past Medical History Medical History: 1. History asthma. 2. gouty arthropathy. 3. Recurrent cellulitis and osteomyelitis. 4. Congestive heart failure secondary to systolic dysfunction. 5. Coronary artery disease with a history of stents. 6. hypertension. 7. Diastases rectus. 8. chronic colovesical fistula status post surgery. 9. history of diverticulitis. 10. GERD. 11. Pigtail catheter drainage is on a couple of occasions, as well as exploratory laparotomy with drainage of abscess and colostomy with sigmoid colectomy done. Surgical History: Multiple back surgeries. Tonsillectomy and adenoidectomy. Appendectomy. Colonoscopy. Upper endoscopy. Sinus surgery. Sigmoid colectomy. End colostomy. Multiple pigtail abscess drainage catheters. Pertinent Family History: She states her father had emphysema problems. Past Social History: Does not smoke or drink alcohol. . Has 3 biologic children, one has MS and the other has ALS. She raised 6 children altogether however. Tobacco Use: Former Smoker In the Past 12 Months, Have Used or Abuse Any of the Following Substance: None Alcohol Use: None Medication / Allergies Home Medications: Home Medications 3 Medication Instructions Recorded Confirmed Type Albuterol Neb Soln 0.083% 1 ea NEB Q4-6H PRN #30 vial 07/03/15 08/14/17 History lisinopril 10 mg tablet 10 mg PO QDAY #90 tab NS 03/15/17 08/14/17 Rx allopurinol 300 mg tablet 300 mg PO QD #30 tab 03/28/17 08/14/17 Rx metoprolol succinate ER 50 mg 50 mg PO QD #30 tab 04/02/17 08/14/17 Rx tablet,extended release 24 hr omeprazole 20 mg capsule,delayed 20 mg PO QD #30 cap 04/02/17 08/14/17 Rx release clopidogrel 75 mg tablet 75 mg PO QD #30 tab 04/15/17 08/14/17 Rx rosuvastatin 40 mg tablet 40 mg PO QHS #30 tab 05/20/17 08/14/17 Rx clarithromycin 500 mg tablet 500 mg PO BID 07/14/17 08/14/17 History hydrocodone 7.5 mg-acetaminophen 1 tab PO Q6H PRN #90 tab 07/14/17 08/14/17 Rx 325 mg tablet Furosemide [Lasix] 40 mg PO QD 08/05/17 08/14/17 History Montelukast Sodium [Singulair] 10 mg PO BEDTIME 08/05/17 08/14/17 History Potassium Chloride 20 meq PO BID 08/05/17 08/14/17 History Cholecalciferol [Vitamin D3] 1,000 iu PO DAILY tab 08/06/17 08/14/17 Rx Digoxin [Lanoxin] 125 mcg PO DAILY tab 08/06/17 08/14/17 Rx Hydrocortisone 10 mg PO BID #90 tab 08/06/17 08/14/17 Rx Allergies/Adverse Reactions: Allergies 3 Allergy/AdvReac Type Severity Reaction Status Date / Time aspirin Allergy Severe SHORTNESS Verified 08/14/17 20:15 OF BREATH Penicillins Allergy Severe Anaphylaxis Verified 08/14/17 20:15 lactose AdvReac DIARRHEA Verified 08/14/17 20:15 Review of Systems - Review of Systems All Systems: Reviewed & No Additional Complaints Except as Stated Exam - General Additional General Exam Details: Looks dehydrated. Dry mucous membrane and dry skin. looks chronically ill - Head Head Exam: Normal Inspection - ENT ENT Exam: POSITIVE: Mucous Membranes Dry - Neck Neck Exam: Normal Inspection - Respiratory Respiratory Exam: POSITIVE: Clear to Auscultation - Bilaterally - Cardiovascular Cardiovascular Exam: POSITIVE: RRR - GI/Abdominal GI/Abdominal Exam: POSITIVE: Normal Bowel Sounds, Non Tender, Non Distended, Soft, Ostomy Present, No Organomegaly - Rectal Rectal Exam: POSITIVE: Deferred - External Exam: POSITIVE: Deferred - Extremities Additional Extremities Exam Details: She has chronic ulcerations in the right foot been followed up by Dr. Cazares. there is a chronic ulceration of the left fifth toe. - Neurological Neurological Exam: POSITIVE: Alert, Oriented x 3, CN II-XII Intact, Moves All Extremities Equally Results - Labs CBC and BMP: 08/14/17 20:45 08/14/17 20:45 - EKG Data -: EKG Interpreted by Me Rate: Tachycardia (RBBB, changes of digoxine effects noted.) - Imaging Status: Report Reviewed by Me (Ct showed 1. Small pulmonary embolus in the subsegmental branch of the left lower lobe. No evidence of right heart strain. 2. 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 Recommend ultrasound duplex to evaluate for subclavian steal. 3. Small left pleural effusion.) Assessment and Plan - Patient Problems (1) Pulmonary embolism Current Visit: Yes Status: Acute Comment: This looks very small subsegmental. I will put her on Lovenox for now I May speak with the cardiology in [place] she is on Plavix and see what they think. I don't think this is responsible for hypotension. Code(s): I26.99 - Other pulmonary embolism without acute cor pulmonale (2) Nausea Current Visit: No Status: Acute Comment: Reason is unclear. Will treated symptomatically for now. May be secondary to systemic illness. Code(s): R11.0 - Nausea (3) Hypotension Current Visit: No Status: Chronic Comment: Looks dehydrated. Will give her some fluid will be cautious with her fluid because of the history of congestive heart failure. Because of history of for adrenal sufficiency although looks relative one, We'll give her hydrocortisone at higher dosage. We'll hold her blood pressure medication for now. Her CRP is elevated, so an infection may be present, although unclear site blood culture was take. I think will treat empirically until we have culture results. Will consult eICU (4) Hypokalemia Current Visit: No Status: Acute Comment: Will replace potassium Code(s): E87.6 - Hypokalemia
--- NOTE | 2017-08-15 01:02 | PDOC ---
General Adult HPI - General Chief Complaint: General Medical Stated Complaint: weakness, vomiting, lethargy Date Seen by Provider: 08/14/17 Time Seen by Provider: 20:15 Source: POSITIVE: Patient, Spouse, EMS Exam Limitations: POSITIVE: No limitations Nurse's Notes Reviewed & Considered: Yes EMS Report Reviewed & Considered: Verbal - History of Present Illness Initial Comment: The patient is a 72-year-old female who is brought to the emergency room by ambulance. Ambulance was called by her . Patient states that for the last 2-3 days she's had nausea and vomiting. Patient states her symptoms were worse today. No diarrhea. No fevers. No melena, hematochezia, hematemesis, dysuria, or hematuria. She complains of extreme lethargy and weakness. She states she's been in bed all day. Patient has a history of adrenal insufficiency for which she takes hydrocortisone. She also complains of some shortness of breath. No chest pain. Have you received a tetanus shot in the past 10 years?: Yes Body Location Affected: REPORTS: Abdomen (Vomiting and nausea), Other (Extreme weakness and fatigue) Timing: REPORTS: Gradual, Getting Worse Duration: <1 week (3 days) Severity: Moderate Quality: REPORTS: Other (Patient denies any pain anywhere) Context: REPORTS: None Modifying Factors: improves with: Vomiting Similar Symptoms Previously: Yes (with previous episodes of hypoadrenalism) Recent Care Received: REPORTS: Recently Seen, Treated by MD, Hospitalized ( Patient hospitalized with similar symptoms a month or so ago) Any Prior Injuries Related to Current Complaint?: No - Patient Home Medications Home Medications: Home Medications Albuterol Neb Soln 0.083% 1 ea NEB Q4-6H PRN #30 vial 07/03/15 lisinopril 10 mg tablet 10 mg PO QDAY #90 tab NS 03/15/17 allopurinol 300 mg tablet 300 mg PO QD #30 tab 03/28/17 metoprolol succinate ER 50 mg tablet,extended release 24 hr 50 mg PO QD #30 tab 04/02/17 omeprazole 20 mg capsule,delayed release 20 mg PO QD #30 cap 04/02/17 clopidogrel 75 mg tablet 75 mg PO QD #30 tab 04/15/17 rosuvastatin 40 mg tablet 40 mg PO QHS #30 tab 05/20/17 clarithromycin 500 mg tablet 500 mg PO BID 07/14/17 hydrocodone 7.5 mg-acetaminophen 325 mg tablet 1 tab PO Q6H PRN #90 tab Furosemide [Lasix] 40 mg PO QD 08/05/17 Montelukast Sodium [Singulair] 10 mg PO BEDTIME 08/05/17 Potassium Chloride 20 meq PO BID 08/05/17 Cholecalciferol [Vitamin D3] 1,000 iu PO DAILY tab 08/06/17 Digoxin [Lanoxin] 125 mcg PO DAILY tab 08/06/17 Hydrocortisone 10 mg PO BID #90 tab 08/06/17 - Patient Allergies Allergies/Adverse Reactions: Allergies 3 Allergy/AdvReac Type Severity Reaction Status Date / Time aspirin Allergy Severe SHORTNESS Verified 08/14/17 20:15 OF BREATH Penicillins Allergy Severe Anaphylaxis Verified 08/14/17 20:15 lactose AdvReac DIARRHEA Verified 08/14/17 20:15 Past Medical History - heen HEENT History: Denies History, Other (please comment) Additional HEENT History: Nasal Polyps, removed, WEARS GLASSES Cardiovascular History: Hypertension, CHF, Hyperlipidemia Respiratory History: Asthma Gastrointestinal History: GERD Additional Gastrointestinal History: COLOSTOMY JUL 2016 Genitourinary History: Denies History Additional Genitourinary History: colovesicular fistula Endocrine History: Denies History Musculoskeletal History: Arthritis, Gout, Back Pain, Back Injury, Joint Pain, Other (please comment) Prosthesis or Implant: No Additional Musculoskeletal History: BACK SURGERY IN January 2012 Neurological History: Denies History, [place] Blood Disorders: Denies History Psychiatric History: Denies History History of Sexually Transmitted Diseases: No Female Reproductive History: Denies History Obstetrical History: Denies History Cancer History: Denies History In Past Year Been Physically Harmed or Verbally Threatened: No History of MDRO: No History of Other Communicable Diseases: No Tobacco Use: Former Smoker Alcohol Use: Rarely In the Past 12 Months, Have Used or Abuse Any Substance: None Previous Surgical History: Yes Type / Date of Surgery: Back surgery twice, the last time in 2011 they had to remove previous hardware, Nasal polypectomy ~1989, Appendectomy 1960, TONSILLECTOMY Anesthesia Reactions: No Malignant Hyperthermia: No Significant Family History: Heart disease, COPD Additional Family History: none Past Medical History Reviewed: Reviewed - No Changes ROS - Limitations ROS Limitations: No Limitations Constitution: REPORTS: Denies Symptoms Cardiovascular: REPORTS: Denies Cardiac Symptoms Respiratory: REPORTS: Shortness Of Breath Neurological: REPORTS: Denies Neuro Symptoms Gastrointestinal: REPORTS: Nausea, Vomitting Endocrine: REPORTS: Fatigue Musculoskeletal: REPORTS: Denies MS Symptoms Genitourinary: REPORTS: Denies Symptoms Eyes: REPORTS: Denies Symptoms ENT: REPORTS: Denies Symptoms Skin: REPORTS: Denies Skin Symptoms Lympathic: REPORTS: Denies Lympathic Symptoms Immunologic: POSITIVE: Denies Symptoms Psychiatric: POSITIVE: Denies Psych Symptoms General Adult Exam - General Appearance General Appearance: POSITIVE: Alert, Cooperative, No Acute Distress, No Evidence of Trauma, Other (. Fatigued; prefers to sleep) - HEENT HEENT: POSITIVE: Head Inspection Nml, Eyes Inspection Nml, Ears Inspection Nml, Nose Inspection Nml, Oral/Dental Inspect. Nml, Pharynx Inspect. Nml, PERRL, EOMI - Pupils Pupil Size: 3 mm: Bilateral (PERRLA) - Neck Neck: POSITIVE: Normal Inspection, Thyroid Normal - Respiratory Respiratory: POSITIVE: No Respiratory Distress, Breath Sounds Normal, Chest Non- Tender - Cardiovascular Cardiovascular: POSITIVE: Regular Rate & Rhythm, No Murmur, No Gallop, PMI Normal Peripheral Pulses: Radial (R): 2+, Radial (L): 2+ - Abdomen Abdomen: Soft: (All Quadrants), Normal Bowel Sounds: (All Quadrants), Denies Tenderness: (All Quadrants), No Splenomegaly: (All Quadrants), No Hepatomegaly: (All Quadrants), No Guarding: (All Quadrants), No Rebound: (All Quadrants), No Palpable Pulse: (All Quadrants), No Palpabale Mass: (All Quadrants), No Distention: (All Quadrants), No Rigidity: (All Quadrants) - Back Back: POSITIVE: Normal Inspection - Skin Skin: POSITIVE: Normal Color, Warm, Dry, No Rash - Extremities Extremity: Non-Tender: (All Extremities), Normal ROM: (All Extremities), Normal Inspection: (All Extremities) - Neurological / Psychological Neurological: POSITIVE: Affect Apporpriate, Oriented X3, sign maintenance Normal As Tested, Motor Normal, Sensation Normal General Adult Progress - Results Reviewed by me Xrays/CTs/US Reviewed by me: Yes Discussed with Radiologist: Yes Radiology Findings: D-dimer was elevated at 0.95. Chest x-ray shows a small effusion on the left. CTA is read by radiologist as showing a small pulmonary embolism in the left lower lung. Lab Results Reviewed by Me: Yes (blood cultures drawn; urinalysis pending; CRP 17; d-dimer 0.95) CBC and BMP: 08/14/17 20:45 08/14/17 20:45 EKG Interpreted/Reviewed By Me:: Yes (sinus tachycardia of 104; right bundle- branch block) EKG Interpretation:: POSITIVE: Normal Rate (Sinus tachycardia 104), Normal Intervals (Probable right bundle-branch block). NEGATIVE: Normal [place], Normal QRS, Normal ST/T - Patient's Progress Pain Medication Addressed: POSITIVE: Not Applicable School/Work Release Addressed: POSITIVE: Not Applicable Re-Examine Time: 21:30 Re-Examine Comment: Patient's extreme fatigue, hypotension, vomiting, hypoglycemia and hypokalemia all very suggestive of acute adrenal insufficiency ; possibly associated with a pulmonary embolism. Patient given a liter of normal saline, 100 mg of hydrocortisone, 30 mL of D50 and was started on 20 mEq of potassium chloride IV. Serum cortisol ordered. Re-Examine Time:: 23:10 Re-Examine Comment: Condition essentially unchanged. Blood pressure 90/60. Accu-Chek blood glucose now 160. Patient states she feels better, but is still very fatigued. Case discussed with Dr. Gardner, hospitalist, and patient is admitted to him for further evaluation and treatment. Status: POSITIVE: Unchanged, Re-Examined Antibiotics Given: No - Consult Consult (If Yes, Name of Consulting MD & Time Called): Yes (Dr. Gardner, hospitalist, [id number]) Consulting MD will see pt:: POSITIVE: [facility] Admit Counseled: POSITIVE: Patient, Family, RE: Lab Results, RE: Radiology Results, RE : DX, RE: Need for F/U Patient Care Time - Estimated PCT Patient Care Time (In Minutes): 70 Vital Signs - Recent Vital Signs Vital Signs: Vital Signs (Last 8 hours) Temp Pulse Resp BP Pulse Ox 08/14/17 19:55 98.8 F 104 H 20 82/53 95 - VS Reviewed Vital Signs Reviewed: Yes Discharge Clinical Impression: Adrenal cortex insufficiency, Nausea and vomiting, Pulmonary embolism Discharge Disposition: Admit to Inpatient Condition: Stable Date Decision to Admit to Inpatient: 08/14/17 Time Decision to Admit to Inpatient: 23:00
[2017-08-15] MEDS: PHENYLEPHRINE IV SCH ×2 (03:09→09:50)
[2017-08-15] MEDS: SODIUM CHLORIDE 0.9% IV SCH ×2 (03:09→09:50)
[2017-08-15] MEDS: POTASSIUM CHLORIDE 20 MEQ TAB PO SCH ×4 (05:37→20:08)
[2017-08-15] MEDS ORDERED: LIDOCAINE HCL 2 % 10 ML JELLY URO-JECT TOPICAL PRN (05:48)
[2017-08-15 05:56] LABS: BILIRUBIN,URINE NEGATIVE (NEG); CLARITY,URINE CLEAR (CLEAR); GLUCOSE, URINE (UA) NEGATIVE (NEG); PROTEIN,URINE 100 mg/dl (NEG); UROBILINOGEN,URINE 0.2 mg/dL (0.2)
[2017-08-15] MEDS ORDERED: HEPARIN 5000 UNIT/1 ML SUBCUT SCH (06:00)
[2017-08-15 06:07] LABS: COLOR,URINE DARK YELLOW; OCCULT BLOOD,URINE TRACE (NEG)
[2017-08-15] MEDS: Pantoprazole Inj 40 MG in Normal Saline Flush 10 ML IVP SCH ×2 (06:07→09:10)
[2017-08-15] MEDS: Ertapenem Inj 1 GM in Sodium Chloride 0.9% 100 ML IV SCH (06:07)
[2017-08-15 06:17] LABS: URINE SAMPLE TYPE CATH SPECIMEN
[2017-08-15 06:18] LABS: BACTERIA,URINE RARE; URINE CRYSTALS MODERATE
[2017-08-15] MEDS: HYDROCORTISONE 100 MG/2 ML IVP SCH ×3 (06:36→20:08)
[2017-08-15 07:27] LABS: BLOOD UREA NITROGEN 6 mg/dL (7-22)
--- NOTE | 2017-08-15 08:00 | PDOC(PROG) ---
Date and Time of Service: 08/15/2017 7:56 AM Interval History: Subjective Patient is very sleepy today compared to last night. Last night she was sleepy but the she was more interactive. She is barely able to open her eyes and then she goes to sleep. She is moving though all her limbs very weak though. Objective : Data - Labs CBC and BMP: 08/14/17 20:45 08/15/17 07:05 Objective : Exam - General General Appearance: No Acute Distress, Cooperative - Head Head Exam: Normal Inspection - Eye Eye Exam: Normal Appearance - ENT ENT Exam: Normal Exam - Neck Additional Neck Exam Details: No neck stiffness - Respiratory Respiratory Exam: Clear to Auscultation - Bilaterally - Cardiovascular Cardiovascular Exam: RRR - GI/Abdominal GI/Abdominal Exam: Normal Bowel Sounds, Non Tender, Non Distended, Soft, Ostomy Present - Rectal Rectal Exam: Deferred - External Exam: Deferred - Extremities Additional Extremities Exam Details: No edema present. Dressing applied to multiple ulceration in her legs. - Neurological Additional Neurological Exam Details: Very sleepy, she would open her eyes in response to vigorous stimulation and then she will go back to sleep. And submitted a few questions. - Integumentary Integumentary Exam: Dry Assessment and Plan - Patient Problems (1) Pulmonary embolism Current Visit: Yes Status: Acute Comment: She did not get Lovenox was canceled by the eICU. I did speak with the another breading machine tender and she suggested that we go back on the Lovenox after the CT of the head. Code(s): I26.99 - Other pulmonary embolism without acute cor pulmonale (2) Nausea Current Visit: No Status: Acute Comment: She is denying nausea this morning. Code(s): R11.0 - Nausea (3) Hypotension Current Visit: No Status: Chronic Comment: Overnight she was started on Arnoldo-Synephrine by the eICU. Continue (4) Hypokalemia Current Visit: No Status: Acute Comment: Potassium still low will add more potassium. Will check magnesium Code(s): E87.6 - Hypokalemia (5) Altered mental status Current Visit: Yes Status: Acute Comment: She is very sleepy and lethargic today. I think will do a CT of her head, will do a venous blood gas. Discussed with eICU. Code(s): R41.82 - Altered mental status, unspecified (6) Adrenal insufficiency Current Visit: Yes Status: Acute Comment: She has this diagnosis made recently and she is on hydrocortisone, I thinkl will continue with the higher dosage IV hydrocortisone for now. Code(s): E27.40 - Unspecified adrenocortical insufficiency (7) Subclavian artery stenosis Current Visit: Yes Status: Acute Comment: Spoke with the satellite tv technician we don't do duplex scanning here. Need to be followed up later on as an outpatient Code(s): I77.1 - Stricture of artery
[2017-08-15 08:17] LABS: VENOUS PH 7.32 (7.32-7.42)
[2017-08-15] MEDS ORDERED: DIGOXIN 125 MCG TABLET PO SCH (09:00)
[2017-08-15] MEDS ORDERED: ALLOPURINOL 300 MG TABLET PO SCH (09:00)
--- NOTE | 2017-08-15 09:05 | DI ---
CT Head WO Contrast,08/15/2017 7:46 AM: Clinical History: Somnolence Previous Exam: August 05, 2017 Findings: Multiple helically acquired CT images are obtained through the brain without contrast, and demonstrat e mild diffuse age-related volume loss. There is no mass, hemorrhage or midline shift. The surroundin g soft tissue and osseous structures are unremarkable. Impression: No acute intracranial pathology.
[2017-08-15] MEDS: CLARITHROMYCIN 500 MG PO SCH ×2 (12:45→20:26)
[2017-08-15] MEDS ORDERED: FLUTICASONE PROPIONATE 16 GRAM (120 SPRAYS / BOTTLE) ENOS SCH (14:48)
[2017-08-15] MEDS ORDERED: Montelukast Tab 10 MG TAB PO SCH (21:00)
[2017-08-15] MEDS ORDERED: Rosuvastatin Tab 20 MG TAB PO SCH (21:00)
[2017-08-16] MEDS: HYDROCORTISONE 100 MG/2 ML IVP SCH ×2 (05:07→17:15)
[2017-08-16 05:31] LABS: BASOPHILS # (AUTO) 0.01 10*3/UL; BASOPHILS % (AUTO) 0.2 % (0-1); EOSINOPHILS # (AUTO) 0 10*3/UL; EOSINOPHILS % (AUTO) 0 % (0-8); Hematocrit [HCT] 25.2 % (37.0-47.0); Hemoglobin [HGB] 8.4 g/dL (12.0-16.0); LYMPHOCYTES # (AUTO) 0.58 10*3/uL; MEAN CORPUSCULAR HEMOGLOBIN 30.2 PG (27-31); MEAN CORPUSCULAR HGB CONC 33.3 g/dL (33-37); MEAN CORPUSCULAR VOLUME 90.6 FL (81-99); MEAN PLATELET VOLUME 10.9 FL (7.4-12.2); MONOCYTES # (AUTO) 0.86 10*3/UL (0.3-0.8); MONOCYTES % (AUTO) 13.2 % (5-15); NEUTROPHILS # (AUTO) 5.04 10*3/UL; NEUTROPHILS % (AUTO) 77.2 % (50-80); RED BLOOD COUNT 2.78 10^6/uL (4.20-5.40)
[2017-08-16 05:45] LABS: BLOOD UREA NITROGEN 9 mg/dL (7-22)
[2017-08-16 05:49] LABS: PLATELET MORPHOLOGY COMMENT NORMAL MORPHOLOGY (NORM); RBC MORPHOLOGY COMMENT NORMAL MORPHOLOGY (NORM); WBC MORPHOLOGY COMMENT NORMAL MORPHOLOGY (NORM)
[2017-08-16] MEDS: Ertapenem Inj 1 GM in Sodium Chloride 0.9% 100 ML IV SCH (07:28)
[2017-08-16] MEDS ORDERED: OMEPRAZOLE 20 MG CAPSULE PO SCH (07:45)
--- NOTE | 2017-08-16 07:49 | PDOC(PROG) ---
Date and Time of Service: 08/16/2017 7:50 AM Interval History: Subjective Patient was awake sitting in the bed does not appear in distress. Denying nausea. Objective : Data - Labs CBC and BMP: 08/16/17 05:15 08/16/17 05:15 Objective : Exam - General General Appearance: No Acute Distress, Cooperative, Obese - Head Head Exam: Normal Inspection, Atraumatic - Eye Eye Exam: Normal Appearance - ENT ENT Exam: Normal Exam - Neck Neck Exam: Normal Inspection - Respiratory Respiratory Exam: Clear to Auscultation - Bilaterally - Cardiovascular Cardiovascular Exam: RRR - GI/Abdominal GI/Abdominal Exam: Normal Bowel Sounds, Non Tender, Non Distended, Soft, Ostomy Present, No Organomegaly - Rectal Rectal Exam: Deferred - External Exam: Deferred Exam: Deferred - Extremities Additional Extremities Exam Details: No edema, dressing applied to multiple sores on the feet and legs. - Back Back Exam: Normal Inspection - Neurological Neurological Exam: Alert, Oriented x 3, CN II-XII Intact, No Facial Droop, Speech Intact / Clear, Moves All Extremities Equally - Psychiatric Psychiatric Exam: Normal Affect Assessment and Plan - Patient Problems (1) Pulmonary embolism Current Visit: Yes Status: Acute Comment: It says small subsegmental embolism. I did speak with the shipping and receiving clerk Dr. Villarreal as she is on Plavix and he is okay to stop the Plavix. So I think we'll switch her from Lovenox to eliquis. We'll take her out of the ICU. Code(s): I26.99 - Other pulmonary embolism without acute cor pulmonale (2) Nausea Current Visit: No Status: Acute Comment: Unclear etiology probably secondary to systemic illness seems to be improved at least for now. Code(s): R11.0 - Nausea (3) Hypotension Current Visit: No Status: Chronic Comment: This is resolved. Etiology unclear, I think it is a combination of dehydration, question medication related question presence of infection. The PE sizebto me seems is too small to contribute to the hypotension. She is off Arnoldo-Synephrine, which was stopped yesterday. I think we'll start cutting back on her fluid may be see if we can stop all her fluid. Will take her out of the ICU. I think we'll continue with antibiotic coverage. Will repeat her CRP which was elevated when she came in. She is steroid dependent because of her arthritis, I think she has a relative adrenal insufficiency will start cutting back on the dosage of the steroid. Relative adrenal insufficiency may be played part also in the hypotension. For now continue holding the metoprolol, lisinopril and Lasix. Not sure whether she needs to be on the same dosage of all her medications. Her ejection fraction seems to be normal based on the echo report. (4) Hypokalemia Current Visit: No Status: Acute Comment: Seems to be resolved Code(s): E87.6 - Hypokalemia (5) Altered mental status Current Visit: Yes Status: Acute Comment: This is resolved Code(s): R41.82 - Altered mental status, unspecified (6) Adrenal insufficiency Current Visit: Yes Status: Acute Comment: She has active adrenal insufficiency secondary to being on prednisone for a long time I think. We'll start cutting back on the steroid consider putting her back on her previous hydrocortisone dosage tomorrow. Code(s): E27.40 - Unspecified adrenocortical insufficiency (7) Subclavian artery stenosis Current Visit: Yes Status: Acute Comment: This need to be followed up later on as an outpatient. Code(s): I77.1 - Stricture of artery (8) Anemia Current Visit: Yes Status: Acute Comment: I think will repeat her labs tomorrow. Check her iron stores tomorrow. Code(s): D64.9 - Anemia, unspecified (9) Sinusitis Current Visit: Yes Status: Acute Comment: We put her on Flonase Code(s): J32.9 - Chronic sinusitis, unspecified
[2017-08-16] MEDS ORDERED: ONDANSETRON 4 MG/2 ML VIAL IVP PRN (08:06)
[2017-08-16] MEDS ORDERED: LIDOCAINE W/ SODIUM BICARB 0.5 ML SYR SUBD PRN (08:06)
[2017-08-16] MEDS: OMEPRAZOLE 20 MG CAPSULE PO SCH (08:48)
[2017-08-16] MEDS ORDERED: Apixaban 5 MG TABLET PO SCH (09:00)
[2017-08-16] MEDS: FLUTICASONE PROPIONATE 16 GRAM (120 SPRAYS / BOTTLE) ENOS SCH (09:26)
[2017-08-16] MEDS: DIGOXIN 125 MCG TABLET PO SCH (09:27)
[2017-08-16] MEDS: Apixaban 5 MG TABLET PO SCH ×2 (09:27→21:06)
[2017-08-16] MEDS: ALLOPURINOL 300 MG TABLET PO SCH (09:27)
[2017-08-16] MEDS: POTASSIUM CHLORIDE 20 MEQ TAB PO SCH ×2 (09:30→17:18)
[2017-08-16] MEDS: CLARITHROMYCIN 500 MG PO SCH ×2 (09:31→21:06)
--- NOTE | 2017-08-16 11:06 | PT.PROG ---
Progress Note Progress Note: S. Patient was awake and asked if we could help her move up and get more comfortable in the bed. O. Wounds dressing were checked and left for another day. She was stood up with mod x2 and a walker and moved sideways to the head of the bed. He clothes were changed as she requested and put gurdeep in her bed with Min A x 1 to get her feet up. A. The patient wounds did not need changed but she was checked on and assisted in changing position for her comfort and to help circulation in her lower ext. She was left comfortable and with nursing staff. P. Cont POC Ester Fieldpadminip
[2017-08-16] MEDS ORDERED: HYDROCORTISONE 100 MG/2 ML IVP SCH (17:00)
[2017-08-16] MEDS: NORMAL SALINE 10 ML SYRINGE FLUSH IVP PRN (17:15)
[2017-08-16] MEDS ORDERED: Montelukast Tab 10 MG TAB PO SCH (21:00)
[2017-08-16] MEDS ORDERED: Rosuvastatin Tab 20 MG TAB PO SCH (21:00)
[2017-08-17] MEDS: HYDROcodone-APAP 7.5 MG-325 MG TABLET PO PRN (02:58)
[2017-08-17] MEDS: HYDROCORTISONE 100 MG/2 ML IVP SCH ×2 (05:39→18:24)
[2017-08-17 06:41] LABS: BASOPHILS # (AUTO) 0 10*3/UL; BASOPHILS % (AUTO) 0 % (0-1); EOSINOPHILS # (AUTO) 0 10*3/UL; EOSINOPHILS % (AUTO) 0 % (0-8); Hematocrit [HCT] 26.3 % (37.0-47.0); Hemoglobin [HGB] 8.3 g/dL (12.0-16.0); LYMPHOCYTES # (AUTO) 0.96 10*3/uL; MEAN CORPUSCULAR HEMOGLOBIN 29.3 PG (27-31); MEAN CORPUSCULAR HGB CONC 31.6 g/dL (33-37); MEAN CORPUSCULAR VOLUME 92.9 FL (81-99); MEAN PLATELET VOLUME 10.8 FL (7.4-12.2); MONOCYTES # (AUTO) 0.61 10*3/UL (0.3-0.8); MONOCYTES % (AUTO) 10.3 % (5-15); NEUTROPHILS % (AUTO) 72.9 % (50-80); RED BLOOD COUNT 2.83 10^6/uL (4.20-5.40)
[2017-08-17 06:42] LABS: PLATELET MORPHOLOGY COMMENT NORMAL MORPHOLOGY (NORM); RBC MORPHOLOGY COMMENT NORMAL MORPHOLOGY (NORM); WBC MORPHOLOGY COMMENT NORMAL MORPHOLOGY (NORM)
[2017-08-17] MEDS ORDERED: Ertapenem Inj 1 GM in Sodium Chloride 0.9% 100 ML IV SCH (07:00)
[2017-08-17] MEDS: OMEPRAZOLE 20 MG CAPSULE PO SCH (07:04)
[2017-08-17] MEDS: POTASSIUM CHLORIDE 20 MEQ TAB PO SCH ×2 (07:04→18:26)
[2017-08-17 07:05] LABS: BLOOD UREA NITROGEN 8 mg/dL (7-22); SERUM ALBUMIN 2.4 g/dL (3.5-4.8)
[2017-08-17] MEDS: DIGOXIN 125 MCG TABLET PO SCH (08:44)
[2017-08-17] MEDS: ALLOPURINOL 300 MG TABLET PO SCH (08:44)
[2017-08-17] MEDS: Apixaban 5 MG TABLET PO SCH ×2 (08:45→20:30)
[2017-08-17] MEDS: CLARITHROMYCIN 500 MG PO SCH ×2 (08:47→20:30)
[2017-08-17] MEDS: FLUTICASONE PROPIONATE 16 GRAM (120 SPRAYS / BOTTLE) ENOS SCH (08:47)
--- NOTE | 2017-08-17 10:29 | PT.PROG ---
Progress Note Progress Note: S. Patient asked if I would inspect the buttom of her foot because it was slightly painful and wanted to see if there was a wound. O. Patient feet were inspected, wound bandages were looked at and they looked good and I opted not to change the bandages at this time. Her feet were against the bed foot board so she was helped to move up in the bed. After inspection of her feet she was placed in her armchair. A. We asked if she would like in her chair for a while so she was put in her chair as she said that would feel good to sit up a little while. So she was helped to transfer and was padded everywhere to prevent and pressure. P. [facility]
--- NOTE | 2017-08-17 15:57 | DI ---
EXAM: CT Abdomen and Pelvis With Intravenous Contrast CLINICAL HISTORY: persistent nausea and vomiting: TECHNIQUE: Axial computed tomography images of the abdomen and pelvis with intravenous contrast. COMPARISON: CT chest dated 08/14/17, CT of the abdomen and pelvis dated 08/01/17. FINDINGS: Lower thorax: Small layering left pleural effusion. Dependent consolidation in the left lung base, likely compressive atelectasis. ABDOMEN: Liver: Unchanged sub-centimeter hypodensities in the liver and spleen, likely simple cysts. Gallbladder and bile ducts: The gallbladder is contracted. No radiodense gallstones identified. No ductal dilatation. Pancreas: Unremarkable. No mass. No ductal dilation. Spleen: See above. Adrenals: Unremarkable. No mass. Kidneys and ureters: Bilateral perinephric stranding without radiodense stones, and no evidence of obstructive uropathy. Stomach and bowel: Left lower quadrant colostomy. No obstruction. No mucosal thickening. Appendix: No identified. No inflammatory changes in the right lower quadrant. PELVIS: Bladder: Chiang catheter and balloon in the urinary bladder lumen. Nondependent luminal air likely related to this catheterization. Reproductive: The uterus and ovaries appear unremarkable. ABDOMEN and PELVIS: Intraperitoneal space: Trace free fluid in the pelvis. Persistent mild inflammatory changes in the central mesenteric root region, nonspecific. No free air. Bones/joints: Posterior spinal fusion spanning L2-L5, with laminectomies. No acute fracture. No dislocation. Soft tissues: Unremarkable. Vasculature: Unremarkable. No abdominal aortic aneurysm. Lymph nodes: Unremarkable. No enlarged lymph nodes. IMPRESSION: 1. Trace free fluid in the pelvis. 2. Left lower quadrant colostomy. No evidence of obstruction. 3. Persistent mild inflammatory changes in the central mesenteric root region, nonspecific. This could suggest inflammatory process in the adjacent bowel loops, which otherwise appear unremarkable. 4. Bilateral perinephric stranding without radiodense stones, and no evidence of obstructive uropathy. 5. Small layering left pleural effusion. Dependent consolidation in the left lung base, likely compressive atelectasis. 6. The gallbladder is contracted, limiting its evaluation. No radiodense gallstones or ductal dilatation.
[2017-08-17] MEDS ORDERED: Iron Sucrose Inj 500 MG in Sodium Chloride 0.9% 250 ML IV ONE (16:31)
--- NOTE | 2017-08-17 16:31 | PDOC(PROG) ---
Date and Time of Service: 08/17/2017, 1625 Interval History: Patient stated to me that her nausea is better on the new antiemetics here. She does not have significant abdominal pain. She feels about 80% better than when she first came in and was hypotensive. She wondered about whether or not she needed to be on some medications. In my discussion with Dr. Gardner, the patient had a normal ejection fraction, but I cannot find the echocardiogram report to confirm this. It was 20% in 2016 prior to stent placement. No chest pains and no shortness of breath. She definitely felt the steroids helped on last admission, and on the prior admission this month, the cortisol levels were abnormally low. She does have adrenal insufficiency. I repeated her abdomen/pelvis CT scan, that shows some central mesenteric inflammatory changes of unclear significance. I don't know if that's leading to the vomiting anymore than adrenal insufficiency. It could even be antibiotic and medication intolerance. Objective : Data - Labs CBC and BMP: 08/17/17 06:25 08/17/17 06:25 Additional Lab Results: Laboratory Results 08/14/17 08/17/17 08/17/17 Range/Units 20:45 06:25 06:25 WBC 5.90 (4.8-10.8) 10^3/uL RBC 2.83 L (4.20-5.40) 10^6/uL Hgb 8.3 L (12.0-16.0) g/dL Hct 26.3 L (37.0-47.0) % MCV 92.9 (81-99) FL MCH 29.3 (27-31) PG MCHC 31.6 L (33-37) g/dL RDW Std Deviation 49.3 (39-50) fL RDW Coeff of [place] 15.2 H (11.5-14.5) % Plt Count 163 (140-350) 10*3/uL MPV 10.8 (7.4-12.2) FL Immature Gran % (Auto) 0.5 (0-5) % Neut % (Auto) 72.9 (50-80) % Lymph % (Auto) 16.3 (10-50) % [place] % (Auto) 10.3 (5-15) % Eos % (Auto) 0 (0-8) % Baso % (Auto) 0 (0-1) % Immature Gran # (Auto) 0.03 10*3/UL Neut # (Auto) 4.30 10*3/UL Lymph # (Auto) 0.96 10*3/uL [place] # (Auto) 0.61 (0.3-0.8) 10*3/UL Eos # (Auto) 0 10*3/UL Baso # (Auto) 0 10*3/UL WBC Morphology Comment Normal morphology (NORM) Plt Morphology Comment Normal morphology (NORM) RBC Morph Comment Normal morphology (NORM) Sodium 146 H (135-145) meq/L Potassium 3.7 L (3.8-5.2) meq/L Chloride 114 H (98-112) meq/L Carbon Dioxide 21 L (23-33) meq/L Anion Gap 11 (5-20) BUN 8 (7-22) mg/dL Creatinine 0.5 (0.50-1.20) mg/dL Estimated GFR > 60 (>60 ml/min/1.73m(2)) BUN/Creatinine Ratio 16.00 (6-20) Glucose 121 H (78-110) mg/dL Calculated Osmolality 300.0 H (267-292) mOsm/kg Calcium 7.8 L (8.7-10.7) mg/dL Iron (37-170) UG/DL TIBC (265-497) ug/dL % Saturation (14-50) % Ferritin (12.00-336.70) ng/mL Total Bilirubin < 0.1 L (0.3-1.2) mg/dL AST 37 (8-39) IU/L ALT 49 (9-52) IU/L Alkaline Phosphatase 131 H (38-126) IU/L C-Reactive Protein (0.0-0.9) mg/dL Total Protein 4.8 L (6.1-8.0) g/dL Albumin 2.4 L (3.5-4.8) g/dL Globulin 2.4 L (2.50-4.10) g/dL Albumin/Globulin Ratio 1.00 L (1.3-2.0) mg/g Cortisol PM Sample 1.3 L (2-14) mcg/dL 08/17/17 08/17/17 08/17/17 Range/Units 06:25 06:25 06:25 WBC (4.8-10.8) 10^3/uL RBC (4.20-5.40) 10^6/uL Hgb (12.0-16.0) g/dL Hct (37.0-47.0) % MCV (81-99) FL MCH (27-31) PG MCHC (33-37) g/dL RDW Std Deviation (39-50) fL RDW Coeff of [place] (11.5-14.5) % Plt Count (140-350) 10*3/uL MPV (7.4-12.2) FL Immature Gran % (Auto) (0-5) % Neut % (Auto) (50-80) % Lymph % (Auto) (10-50) % [place] % (Auto) (5-15) % Eos % (Auto) (0-8) % Baso % (Auto) (0-1) % Immature Gran # (Auto) 10*3/UL Neut # (Auto) 10*3/UL Lymph # (Auto) 10*3/uL [place] # (Auto) (0.3-0.8) 10*3/UL Eos # (Auto) 10*3/UL Baso # (Auto) 10*3/UL WBC Morphology Comment (NORM) Plt Morphology Comment (NORM) RBC Morph Comment (NORM) Sodium (135-145) meq/L Potassium (3.8-5.2) meq/L Chloride (98-112) meq/L Carbon Dioxide (23-33) meq/L Anion Gap (5-20) BUN (7-22) mg/dL Creatinine (0.50-1.20) mg/dL Estimated GFR (>60 ml/min/1.73m(2)) BUN/Creatinine Ratio (6-20) Glucose (78-110) mg/dL Calculated Osmolality (267-292) mOsm/kg Calcium (8.7-10.7) mg/dL Iron 40 (37-170) UG/DL TIBC 193 L (265-497) ug/dL % Saturation 20.73 (14-50) % Ferritin 462.00 H (12.00-336.70) ng/mL Total Bilirubin (0.3-1.2) mg/dL AST (8-39) IU/L ALT (9-52) IU/L Alkaline Phosphatase (38-126) IU/L C-Reactive Protein 4.3 H (0.0-0.9) mg/dL Total Protein (6.1-8.0) g/dL Albumin (3.5-4.8) g/dL Globulin (2.50-4.10) g/dL Albumin/Globulin Ratio (1.3-2.0) mg/g Cortisol PM Sample (2-14) mcg/dL Objective : Exam - General General Appearance: No Acute Distress, Cooperative Additional General Exam Details: Vital Signs - Last Taken Temperature 97.3 F 08/17/17 13:00 Pulse Rate 94 08/17/17 13:00 Respiratory Rate 16 08/17/17 13:00 Blood Pressure 114/58 08/17/17 13:00 Pulse Ox 99 08/17/17 13:00 - Eye Eye Exam: No Scleral Icterus - ENT ENT Exam: Mucous Membranes Moist - Respiratory Respiratory Exam: Clear to Auscultation - Bilaterally, Breathing Non Labored - Cardiovascular Cardiovascular Exam: RRR, No Murmur, No Clicks, No Gallops, No Rubs, No JVD - GI/Abdominal GI/Abdominal Exam: Normal Bowel Sounds, Non Tender, Non Distended, Soft - Extremities Extremities Exam: No Clubbing Present, No Cyanosis Present, +1 Edema - Neurological Neurological Exam: Alert, Oriented x 3, No Facial Droop, Speech Intact / Clear, Moves All Extremities Equally - Integumentary Additional Integumentary Exam Details: Several areas of friable skin, and bruising. Assessment and Plan - Patient Problems (1) Pulmonary embolism Current Visit: Yes Status: Acute Code(s): I26.99 - Other pulmonary embolism without acute cor pulmonale (2) Adrenal insufficiency Current Visit: Yes Status: Acute Code(s): E27.40 - Unspecified adrenocortical insufficiency (3) Hypokalemia Current Visit: Yes Status: Acute Code(s): E87.6 - Hypokalemia (4) Nausea Current Visit: Yes Status: Chronic Code(s): R11.0 - Nausea (5) Subclavian artery stenosis Current Visit: Yes Status: Suspected Code(s): I77.1 - Stricture of artery (6) Anemia Current Visit: Yes Status: Acute Code(s): D64.9 - Anemia, unspecified Qualifiers: Anemia type: iron deficiency Iron deficiency anemia type: unspecified iron deficiency Qualified Code(s): D50.9 - Iron deficiency anemia, unspecified (7) Hypotension Current Visit: Yes Status: Resolved Comment: I think related to adrenal insufficiency. Qualifiers: Hypotension type: other hypotension type Qualified Code(s): I95.89 - Other hypotension (8) Arteriosclerotic cardiovascular disease (ASCVD) Current Visit: Yes Status: Chronic Onset Date: 10/04/15 Code(s): I25.10 - Atherosclerotic heart disease of [place] coronary artery without angina pectoris - Assessment / Plan Additional Assessment/Plan Details: At this point, with repeat CT scan really showing no recurrence of abscess, but some chronic nonspecific inflammatory changes, I think we can stop Invanz. Continue Biaxin for lower extremities. Have PT do wound care which is ordered. Discontinue catheter. I think we should stop several medications, look at the echocardiogram report and see what this ejection fraction is currently. They may help guide us in terms of things like digoxin, blood pressure medications as well. Increase hydrocortisone dose back to by mouth when possible, and may add fludrocortisone as well. I want to do a series of labs looking for vitamin deficiencies and electrolyte abnormalities tomorrow. Discussed with patient and she agrees with plan. She may be interested in doing the swing bed which I think would give us an opportunity to watch how she adjusts to these medications so that we can hopefully prevent a further admission.
[2017-08-17] MEDS ORDERED: Sodium Chloride 0.9% 250 ML IV ONE (18:13)
[2017-08-17] MEDS: NORMAL SALINE 10 ML SYRINGE FLUSH IVP PRN (18:25)
[2017-08-18] MEDS: HYDROCORTISONE 100 MG/2 ML IVP SCH ×2 (04:46→17:22)
[2017-08-18 05:12] LABS: BLOOD UREA NITROGEN 6 mg/dL (7-22); SERUM ALBUMIN 2.6 g/dL (3.5-4.8)
[2017-08-18] MEDS: OMEPRAZOLE 20 MG CAPSULE PO SCH (07:36)
[2017-08-18] MEDS: POTASSIUM CHLORIDE 20 MEQ TAB PO SCH ×2 (07:36→17:23)
[2017-08-18] MEDS: Apixaban 5 MG TABLET PO SCH ×2 (08:46→20:41)
[2017-08-18] MEDS: FLUTICASONE PROPIONATE 16 GRAM (120 SPRAYS / BOTTLE) ENOS SCH (08:46)
[2017-08-18] MEDS: CLARITHROMYCIN 500 MG PO SCH ×2 (08:47→20:42)
[2017-08-18] MEDS: ALLOPURINOL 300 MG TABLET PO SCH (08:47)
--- NOTE | 2017-08-18 10:46 | PTI REPORT ---
Thank you for the referral of Ester Meek. She was seen on 08/15/17 for an inpatient evaluation secondary to bilateral lower extremity open wounds. SUBJECTIVE: The patient is a 72-year-old female. At the time of the evaluation the patient' s spouse was present as well as the ICU nurse. The patient reports she was brought to the hospital via ambulance yesterday. Her spouse states she was unable to get up out of her chair and was borderline incoherent. The patient states she is feeling much better today but is concerned about her lower extremity dressings and is concerned that she is going to be missing her follow up appointment with Dr. Cazares, her retail wireless sales consultant. She states because physical therapy has been treating her on an outpatient basis for her wounds that she wanted them to be treated by physical therapy while in the hospital. PAST MEDICAL HISTORY: Past medical history can be found in the patient's medical record. OBJECTIVE FINDINGS: The patient presents with four open wounds; two on each bilateral lower extremity. Please see documentation for pictures of all wounds. On her right lateral leg the wound measures 6.2 centimeters x 1.4 centimeters with well defined edges and serosanguineous mild drainage. On the right plantar surface of the foot, the wound measures 0.8 centimeters x 0.7 centimeters x 0.3 centimeters with slight maceration around the wound edges. On the left anterior leg the wound measures 1.0 centimeters x 0.9 centimeters with 100% slough tissue and serous drainage. On the left 5th toe the wound measures 0.7 centimeters x 0.4 centimeters with no visible signs of drainage. All areas were cleansed with wound cleanser followed by application of Multidex followed by Mepilex secondary dressing. ASSESSMENT: Problem List: Risk for infection Open wounds Physical Therapy Goals: To be met by discharge from inpatient: Patient will promote sterile wound healing. We will encourage right lower extremity non weight-bearing due to the plantar surface open wound and risk of osteomyelitis. TREATMENT PLAN: Patient will be seen on a PRN basis for wound care. INITIAL TREATMENT: Treatment today consisted of the initial evaluation followed by wound care to bilateral lower extremities with all supplies provided by the third floor nursing department. ALEM
[2017-08-18] MEDS ORDERED: FLUDROCORTISONE ACETATE 0.1 MG TABLET PO ONE (15:21)
--- NOTE | 2017-08-18 15:27 | PDOC(PROG) ---
Date and Time of Service: 08/18/2017, 1520 Interval History: No completes of chest pain, shortness breath, nausea or vomiting. She is willing to do a swing bed when eligible. Eating well today. Examined at lunchtime. Objective : Data - Labs CBC and BMP: 08/17/17 06:25 08/18/17 04:10 Objective : Exam - General General Appearance: No Acute Distress, Cooperative Additional General Exam Details: Vital Signs (24 hrs) Temp Pulse Pulse Pulse Pulse Resp BP 08/18/17 11:23 98.5 F 86 18 130/63 08/18/17 11:00 86 08/18/17 07:32 97.4 F 89 18 144/77 08/18/17 04:49 98.5 F 88 20 142/73 08/18/17 03:00 79 08/18/17 00:46 98.4 F 84 20 131/64 08/17/17 23:00 90 08/17/17 20:48 97.7 F 94 22 134/69 08/17/17 19:00 94 08/17/17 18:54 100 96 90 18 08/17/17 17:41 97.3 F 96 18 109/53 Pulse Ox 08/18/17 11:23 91 08/18/17 11:00 08/18/17 07:32 98 08/18/17 04:49 94 08/18/17 03:00 08/18/17 00:46 97 08/17/17 23:00 08/17/17 20:48 96 08/17/17 19:00 08/17/17 18:54 08/17/17 17:41 97 - Eye Eye Exam: No Scleral Icterus - ENT ENT Exam: Mucous Membranes Moist - Respiratory Respiratory Exam: Clear to Auscultation - Bilaterally, Breathing Non Labored - Cardiovascular Cardiovascular Exam: RRR, No Murmur, No Clicks, No Gallops, No Rubs, No JVD - GI/Abdominal GI/Abdominal Exam: Normal Bowel Sounds, Non Tender, Non Distended, Soft - Extremities Extremities Exam: No Clubbing Present, No Cyanosis Present, +1 Edema - Neurological Neurological Exam: Alert, Oriented x 3, No Facial Droop, Speech Intact / Clear, Moves All Extremities Equally Assessment and Plan - Patient Problems (1) Pulmonary embolism Current Visit: Yes Status: Acute Code(s): I26.99 - Other pulmonary embolism without acute cor pulmonale (2) Adrenal insufficiency Current Visit: Yes Status: Acute Code(s): E27.40 - Unspecified adrenocortical insufficiency (3) Hypokalemia Current Visit: Yes Status: Acute Code(s): E87.6 - Hypokalemia (4) Nausea Current Visit: Yes Status: Chronic Code(s): R11.0 - Nausea (5) Subclavian artery stenosis Current Visit: Yes Status: Suspected Code(s): I77.1 - Stricture of artery (6) Anemia Current Visit: Yes Status: Acute Code(s): D64.9 - Anemia, unspecified Qualifiers: Anemia type: iron deficiency Iron deficiency anemia type: unspecified iron deficiency Qualified Code(s): D50.9 - Iron deficiency anemia, unspecified (7) Hypotension Current Visit: Yes Status: Resolved Qualifiers: Hypotension type: other hypotension type Qualified Code(s): I95.89 - Other hypotension (8) Arteriosclerotic cardiovascular disease (ASCVD) Current Visit: Yes Status: Chronic Onset Date: 10/04/15 Code(s): I25.10 - Atherosclerotic heart disease of [place] coronary artery without angina pectoris - Assessment / Plan Additional Assessment/Plan Details: I would like to get the patient back on by mouth hydrocortisone, 20 mg in a.m. and 10 mg in afternoon. Continue treatment for PE. It is possible that having an acute PE cause worsened decompensation and adrenal crisis with hypotension. I have the echocardiogram report. 55-60% ejection fraction, moderate to severe tricuspid regurgitation, moderate pulmonary hypertension, and grade 1 diastolic dysfunction. I think we can back off on her blood pressure medications to some degree. Mild aortic insufficiency noted on echocardiogram as well. Again I think we can back off on some of these blood pressure pills. I think swing bed would make some sense to do some physical therapy/ occupational therapy/watch patient on medications. Continue clarithromycin.
--- NOTE | 2017-08-18 16:52 | PT.PROG ---
Progress Note Progress Note: S. Patient stated that she is worried about her foot and would like her dressings changed. O. Patient's dressings were removed and cleaned with wound cleanser then all were redressed with mepilex and multidex. Patient was left in chair with alarm and call light. A. Patient's wounds appear clean and healing well, Patient would benefit from continued wound care at this time. P. Continue POC.
[2017-08-18] MEDS: NORMAL SALINE 10 ML SYRINGE FLUSH IVP PRN (17:23)
[2017-08-18] MEDS: HYDROcodone-APAP 7.5 MG-325 MG TABLET PO PRN (20:41)
[2017-08-18] MEDS ORDERED: HYDROCORTISONE 20 MG TABLET PO SCH (21:00)
[2017-08-18] MEDS ORDERED: HYDROCORTISONE 20 MG PO SCH (21:00)
--- NOTE | 2017-08-18 21:01 | DI ---
XR PELVIS 1-2VW,08/18/2017 5:04 PM: Clinical History: Status post fall with sacral skin tear. Previous Exam: CT abdomen pelvis performed August 17, 2017 Findings: A single frontal radiograph of the pelvis is obtained, and demonstrate diffuse osteopenia. Degenerative changes are noted of the lumbar spine and there is transpedicular screw and tan fixation of the lumbar spine. A nonobstructive bowel gas pattern is seen. There are some injection granulomas noted in some soft tissue calcifications. Impression: No acute intra-abdominal pathology and no visible fracture.
[2017-08-19] MEDS: HYDROCORTISONE 100 MG/2 ML IVP SCH ×2 (04:36→04:51)
[2017-08-19] MEDS: POTASSIUM CHLORIDE 20 MEQ TAB PO SCH (07:13)
[2017-08-19] MEDS: OMEPRAZOLE 20 MG CAPSULE PO SCH (07:13)
[2017-08-19 07:27] VITALS: RESP 17
[2017-08-19] MEDS: ALLOPURINOL 300 MG TABLET PO SCH (08:51)
[2017-08-19] MEDS: Apixaban 5 MG TABLET PO SCH (08:52)
[2017-08-19] MEDS: HYDROcodone-APAP 7.5 MG-325 MG TABLET PO PRN (08:56)
[2017-08-19] MEDS: CLARITHROMYCIN 500 MG PO SCH (08:56)
[2017-08-19] MEDS: FLUTICASONE PROPIONATE 16 GRAM (120 SPRAYS / BOTTLE) ENOS SCH (08:57)
[2017-08-19] MEDS ORDERED: FLUDROCORTISONE ACETATE 0.1 MG TABLET PO SCH (09:00)
[2017-08-19] MEDS ORDERED: HYDROCORTISONE 20 MG PO SCH (09:00)
[2017-08-19] MEDS ORDERED: HYDROCORTISONE 20 MG TABLET PO SCH (09:00)
[2017-08-19 11:12] VITALS: BP 115/51; TEMP 97.2; O2SAT 96
--- NOTE | 2017-08-19 13:50 | DCSUMMARY ---
Hospitalization Summary Admit Date: 08/15/2017 Discharge Date: 08/19/17 Primary Diagnosis:: pulmonary embolism, acute Secondary Diagnosis:: Weakness and deconditioning Hospital Course: This very pleasant 72-year-old female that was admitted on 08/15/2017 with symptoms of shortness of breath. She was found to have an acute pulmonary embolism. She was placed on eliquis for this. She tolerated therapy for the pulmonary embolism well and her symptoms resolved very quickly. She was hypotensive, and it looks like this was probably related to adrenal insufficiency. She was given hydrocortisone stress doses which helped improve her blood pressures. She is now being transitioned back to by mouth medications and fludrocortisone. An echocardiogram was repeated in the setting of her pulmonary embolism, and there was no evidence of significant pulmonary hypertension although moderate pulmonary hypertension was noted. Interestingly, the patient's ejection fraction is 55-60% now where it was 20% in 2016. Some of her medications for blood pressure just not being tolerated due to hypertension so these were stopped during the hospital stay. The day prior to discharge, the patient had a fall in the bathroom. She states that she was trying to get up from the bathroom, was walking fine, and her sock was slippery. The sticky parts of the sock were not underneath her feet. And she slipped, but the fall was eased by a edge of a trash can, and she states that her pain is significantly better today. An x-ray was done and it was negative for any fracture. She does have a blood blister and a developing hematoma that pictures were taken. Those were reviewed. The patient had physical therapy and occupational therapy and still required therapy for weakness and deconditioning. She had therapy for wound care as well and her wounds do look much better, and are not bad on appearance. No significant drainage. She remains on Biaxin for these. She did have abdominal pain, and Invanz was started initially, but a repeat CT scan showed no abscess, and Invanz was discontinued. There is some concern that the patient may have a subclavian steal syndrome which would be addressed on an outpatient basis with the patient. Today, no complaints of chest pain, shortness breath, nausea or vomiting. She is willing to do a swing bed therapy stay. Assessment and Plan: 1. As per discharge assessments noted 2. Disposition: Patient is discharged to swing bed 3. Condition on discharge, stable and improved. 4. Diet: regular diet 5. Activities: resume normal activities, physical therapy and occupational therapy will continue 6. Follow-Up: 1. Hospitalist service will continue to monitor her care 2. 7. Medications at the Time of Discharge: Home Medications 3 Medication Instructions Recorded Confirmed Type Albuterol Neb Soln 0.083% 1 ea NEB Q4-6H PRN #30 vial 07/03/15 08/14/17 History lisinopril 10 mg tablet 10 mg PO QDAY #90 tab NS 03/15/17 08/14/17 Rx allopurinol 300 mg tablet 300 mg PO QD #30 tab 03/28/17 08/14/17 Rx metoprolol succinate ER 50 mg 50 mg PO QD #30 tab 04/02/17 08/14/17 Rx tablet,extended release 24 hr omeprazole 20 mg capsule,delayed 20 mg PO QD #30 cap 04/02/17 08/14/17 Rx release clopidogrel 75 mg tablet 75 mg PO QD #30 tab 04/15/17 08/14/17 Rx rosuvastatin 40 mg tablet 40 mg PO QHS #30 tab 05/20/17 08/14/17 Rx clarithromycin 500 mg tablet 500 mg PO BID 07/14/17 08/14/17 History hydrocodone 7.5 mg-acetaminophen 1 tab PO Q6H PRN #90 tab 07/14/17 08/14/17 Rx 325 mg tablet Furosemide [Lasix] 40 mg PO QD 08/05/17 08/14/17 History Montelukast Sodium [Singulair] 10 mg PO BEDTIME 08/05/17 08/14/17 History Potassium Chloride 20 meq PO BID 08/05/17 08/14/17 History Cholecalciferol [Vitamin D3] 1,000 iu PO DAILY tab 08/06/17 08/14/17 Rx Digoxin [Lanoxin] 125 mcg PO DAILY tab 08/06/17 08/14/17 Rx Hydrocortisone 10 mg PO BID #90 tab 08/06/17 08/14/17 Rx 8. Time, care, counseling and coordination of care for this discharge is less than 30 minutes. Exam - Vitals Vital Signs: Vital Signs Temperature 97.2 F Temperature Source Temporal Artery Scan Pulse Rate [Apical] 89 Pulse Rate [Telemetry] 90 Pulse Rate [Pulse Oximeter] 108 Pulse Rate 86 Respiratory Rate 17 Blood Pressure [Right Arm] 115/51 Blood Pressure [Left Arm] 120/69 Blood Pressure 97/42 Pulse Ox 96 Oxygen Flow Rate 1 Oxygen Delivery Method Room Air Height 5 ft 7 in Weight 155 lb - General General Appearance: No Acute Distress, Cooperative - Eye Eye Exam: POSITIVE: No Scleral Icterus - ENT ENT Exam: POSITIVE: Mucous Membranes Moist - Respiratory Respiratory Exam: POSITIVE: Clear to Auscultation - Bilaterally, Breathing Non Labored - Cardiovascular Cardiovascular Exam: POSITIVE: RRR, No Murmur, No Clicks, No Gallops, No Rubs, No JVD - GI/Abdominal GI/Abdominal Exam: POSITIVE: Normal Bowel Sounds, Non Tender, Non Distended, Soft - Extremities Extremities Exam: POSITIVE: No Cyanosis Present, +1 Edema - Neurological Neurological Exam: POSITIVE: Alert, Oriented x 3, No Facial Droop, Speech Intact / Clear, Moves All Extremities Equally Data Peritnent Studies: 08/15/17 08/17/17 08/17/17 09:38 06:25 06:25 WBC 5.90 Hgb 8.3 L Hct 26.3 L Plt Count 163 Sodium Potassium Chloride Carbon Dioxide Anion Gap BUN Creatinine Estimated GFR BUN/Creatinine Ratio Glucose Calculated Osmolality Calcium Magnesium Iron TIBC % Saturation Ferritin 462.00 H Total Bilirubin AST ALT Alkaline Phosphatase Total Protein Albumin Globulin Albumin/Globulin Ratio Vitamin B12 Vitamin D 25-Hydroxy Serum Folate Digoxin 1.3 08/17/17 08/18/17 08/18/17 06:25 04:10 04:10 WBC Hgb Hct Plt Count Sodium 146 H Potassium 3.9 Chloride 111 Carbon Dioxide 21 L Anion Gap 14 BUN 6 L Creatinine 0.6 Estimated GFR > 60 BUN/Creatinine Ratio 10.00 Glucose 138 H Calculated Osmolality 301.0 H Calcium 7.9 L Magnesium 1.6 Iron 40 TIBC 193 L % Saturation 20.73 Ferritin Total Bilirubin 0.1 L AST 40 H ALT 54 H Alkaline Phosphatase 143 H Total Protein 5.1 L Albumin 2.6 L Globulin 2.5 Albumin/Globulin Ratio 1.00 L Vitamin B12 Vitamin D 25-Hydroxy 19.8 L Serum Folate Digoxin 08/18/17 04:10 WBC Hgb Hct Plt Count Sodium Potassium Chloride Carbon Dioxide Anion Gap BUN Creatinine Estimated GFR BUN/Creatinine Ratio Glucose Calculated Osmolality Calcium Magnesium Iron TIBC % Saturation Ferritin Total Bilirubin AST ALT Alkaline Phosphatase Total Protein Albumin Globulin Albumin/Globulin Ratio Vitamin B12 572 Vitamin D 25-Hydroxy Serum Folate 6.79 Digoxin Patient Problems - Patient Problem List (1) Pulmonary embolism Status: Acute Code(s): I26.99 - Other pulmonary embolism without acute cor pulmonale Qualifiers: Pulmonary embolism type: other Chronicity: unspecified Acute cor pulmonale presence: without acute cor pulmonale Qualified Code(s): I26.99 - Other pulmonary embolism without acute cor pulmonale Category: Medical (2) Adrenal insufficiency Status: Acute Code(s): E27.40 - Unspecified adrenocortical insufficiency Category: Medical (3) Hypokalemia Status: Acute Code(s): E87.6 - Hypokalemia Category: Medical (4) Nausea Status: Chronic Code(s): R11.0 - Nausea Category: Medical (5) Subclavian artery stenosis Status: Suspected Code(s): I77.1 - Stricture of artery Category: Medical (6) Anemia Status: Acute Code(s): D64.9 - Anemia, unspecified Qualifiers: Anemia type: iron deficiency Iron deficiency anemia type: unspecified iron deficiency Qualified Code(s): D50.9 - Iron deficiency anemia, unspecified Category: Medical (7) Hypotension Status: Resolved Qualifiers: Hypotension type: other hypotension type Qualified Code(s): I95.89 - Other hypotension Category: Medical (8) Arteriosclerotic cardiovascular disease (ASCVD) Status: Chronic Onset Date: 10/04/15 Code(s): I25.10 - Atherosclerotic heart disease of [place] coronary artery without angina pectoris Category: Medical
== END 2017-08-19 13:21 | disposition swing bed (61) | DRG 176 ==
LOC: ER 19:55 → MED/SURG 08-15 00:52 → ICU 08-15 01:02 → MED/SURG 08-16 07:45
PROVIDERS: ADMIT Internal Medicine; ATTEND Internal Medicine

== ENCOUNTER 2017-08-26 20:40 | Inpatient (IN) ==
--- NOTE | 2017-08-27 04:26 | EKG ---
[address] [address] Measurements Intervals [place] Rate: 85 P: 14 NM: 163 QRS: -24 QRSD: 131 T: 50 QT: 415 QTc: 457 Interpretive Statements SINUS RHYTHM POSSIBLE LEFT ATRIAL ENLARGEMENT LEFTWARD AXIS RIGHT BUNDLE BRANCH BLOCK NONSPECIFIC ST CHANGES. CANNOT R/O ANTEROSEPTAL ISCHEMIA Compared to ECG 08/26/2017 19:55:40 No significant change Electronically Signed On 08-27-17 11:43:06 MDT by Keny Vazquez [email or web address]
[2017-08-27] MEDS ORDERED: OMEPRAZOLE 20 MG CAPSULE PO ONE (07:35)
[2017-08-27] MEDS ORDERED: POTASSIUM CHLORIDE 20 MEQ TAB PO ONE (07:35)
[2017-08-27] MEDS ORDERED: CHOLECALCIFEROL 1000 IU TABLET PO ONE (09:26)
[2017-08-27] MEDS ORDERED: MAGNESIUM OXIDE 400 MG TABLET PO ONE (09:26)
[2017-08-27] MEDS ORDERED: FUROSEMIDE 10 MG/1 ML - 2 ML VIAL IVP ONE (09:26)
[2017-08-27] MEDS ORDERED: Apixaban 5 MG TABLET PO ONE (09:26)
[2017-08-27] MEDS ORDERED: HYDROCORTISONE 20 MG TABLET PO ONE (09:26)
[2017-08-27] MEDS ORDERED: CLOPIDOGREL 75 MG TABLET PO ONE (09:26)
[2017-08-27] MEDS ORDERED: ALLOPURINOL 300 MG TABLET PO ONE (09:26)
[2017-08-27] MEDS ORDERED: FLUDROCORTISONE ACETATE 0.1 MG TABLET PO ONE (09:26)
[2017-08-27] MEDS ORDERED: DILTIAZEM HCL CD 120 MG CAP PO ONE (09:26)
[2017-08-27] MEDS ORDERED: NORMAL SALINE 10 ML SYRINGE FLUSH IVP ONE (09:26)
--- NOTE | 2017-08-27 09:55 | PDOC(PROG) ---
Date and Time of Service: 08/27/2017 10:11 AM Interval History: Subjective Patient feels better today compared to last night. She said yesterday the whole day she didn't feel well she had an aversion to food, she didn't feel nauseated though. There was no chest pain, there is no shortness of breath. She did not feel her heart was racing. An EKG done with other testing showed atrial flutter and she was transferred to the ICU she was put briefly on Cardizem drip and she converted to sinus rhythm. She did say that she had some swelling in her legs and she is better now compared to what it was. Objective : Exam - General General Appearance: No Acute Distress, Cooperative - Head Head Exam: Normal Inspection - Eye Eye Exam: Normal Appearance - ENT ENT Exam: Normal Exam - Neck Neck Exam: Normal Inspection - Respiratory Respiratory Exam: Clear to Auscultation - Bilaterally - Cardiovascular Cardiovascular Exam: RRR - GI/Abdominal GI/Abdominal Exam: Normal Bowel Sounds, Non Tender, Non Distended, Soft, No Organomegaly - Rectal Rectal Exam: Deferred - External Exam: Deferred - Extremities Additional Extremities Exam Details: Some dependent edema in the back of the thighs. - Back Back Exam: Normal Inspection - Neurological Neurological Exam: Alert, Oriented x 3, CN II-XII Intact, Speech Intact / Clear , Moves All Extremities Equally - Psychiatric Psychiatric Exam: Normal Affect Assessment and Plan - Patient Problems (1) Paroxysmal atrial fibrillation Current Visit: No Status: Resolved Onset Date: 05/23/16 Comment: The rhythm yesterday probably more like atrial flutter but she converted to sinus rhythm. She is on oral Cardizem. Continue. I think we can take her out of the ICU. We will watch her another night as an inpatient and see how things look tomorrow and and see whether we can put her back to swing bed. Code(s): I48.0 - Paroxysmal atrial fibrillation (2) Adrenal insufficiency Current Visit: No Status: Acute Comment: I thought she had some relative adrenal insufficiency secondary to chronic prednisone treatment. This was switched to hydrocortisone. Apparently Florinef was also added. I'm not sure whether she truly needs Florinef may have to hold it for now and see what happens to have swelling and blood pressure. Code(s): E27.40 - Unspecified adrenocortical insufficiency (3) Hypomagnesemia Current Visit: No Status: Acute Comment: Continue replacement Code(s): E83.42 - Hypomagnesemia (4) Leg edema Current Visit: No Status: Acute Comment: She was put on IV Lasix will continue I think we'll hold the Florinef for now see what happens to her blood pressure. Code(s): R60.0 - Localized edema
[2017-08-27] MEDS ORDERED: HYDROcodone-APAP 7.5 MG-325 MG TABLET PO PRN (10:17)
[2017-08-27] MEDS ORDERED: NORMAL SALINE 10 ML SYRINGE FLUSH IVP PRN ×2 (10:17→15:36)
[2017-08-27] MEDS ORDERED: Ondansetron ODT Tab 4 MG TAB PO PRN ×2 (10:17→15:36)
[2017-08-27] MEDS ORDERED: LIDOCAINE W/ SODIUM BICARB 0.5 ML SYR SUBD PRN ×2 (10:17→15:36)
[2017-08-27] MEDS ORDERED: LIDOCAINE HCL 2 % 10 ML JELLY URO-JECT TOPICAL PRN ×2 (10:17→15:36)
[2017-08-27] MEDS ORDERED: FUROSEMIDE 10 MG/1 ML - 2 ML VIAL IVP SCH (13:00)
[2017-08-27] MEDS ORDERED: POTASSIUM CHLORIDE 20 MEQ TAB PO SCH (17:00)
[2017-08-27] MEDS: POTASSIUM CHLORIDE 20 MEQ TAB PO SCH (18:08)
[2017-08-27] MEDS: HYDROCORTISONE 10 MG TABLET PO SCH (20:41)
[2017-08-27] MEDS: MAGNESIUM OXIDE 400 MG TABLET PO SCH (20:41)
[2017-08-27] MEDS: Rosuvastatin Tab 20 MG TAB PO SCH (20:41)
[2017-08-27] MEDS: CLARITHROMYCIN 500 MG PO SCH (20:42)
[2017-08-27] MEDS: Apixaban 5 MG TABLET PO SCH (20:42)
[2017-08-27] MEDS ORDERED: HYDROCORTISONE 10 MG TABLET PO SCH (21:00)
[2017-08-27] MEDS ORDERED: Rosuvastatin Tab 20 MG TAB PO SCH (21:00)
[2017-08-27] MEDS ORDERED: Apixaban 5 MG TABLET PO SCH (21:00)
[2017-08-27] MEDS ORDERED: CLARITHROMYCIN PO SCH (21:00)
[2017-08-27] MEDS ORDERED: MAGNESIUM OXIDE 400 MG TABLET PO SCH (21:00)
[2017-08-27] MEDS: HYDROcodone-APAP 7.5 MG-325 MG TABLET PO PRN (23:20)
[2017-08-28 05:21] LABS: BASOPHILS # (AUTO) 0.01 10*3/UL; BASOPHILS % (AUTO) 0.1 % (0-1); EOSINOPHILS # (AUTO) 0.04 10*3/UL; EOSINOPHILS % (AUTO) 0.4 % (0-8); Hematocrit [HCT] 30.3 % (37.0-47.0); Hemoglobin [HGB] 9.3 g/dL (12.0-16.0); LYMPHOCYTES # (AUTO) 1.41 10*3/uL; MEAN CORPUSCULAR HEMOGLOBIN 29.2 PG (27-31); MEAN CORPUSCULAR HGB CONC 30.7 g/dL (33-37); MEAN CORPUSCULAR VOLUME 95.3 FL (81-99); MEAN PLATELET VOLUME 11.3 FL (7.4-12.2); MONOCYTES # (AUTO) 1.59 10*3/UL (0.3-0.8); MONOCYTES % (AUTO) 17.5 % (5-15); NEUTROPHILS # (AUTO) 5.85 10*3/UL; NEUTROPHILS % (AUTO) 64.5 % (50-80); RED BLOOD COUNT 3.18 10^6/uL (4.20-5.40)
[2017-08-28 05:33] LABS: BLOOD UREA NITROGEN 17 mg/dL (7-22); BUN/CREATININE RATIO 28.33 (6-20); SERUM ALBUMIN 3.1 g/dL (3.5-4.8)
[2017-08-28 05:36] LABS: PLATELET MORPHOLOGY COMMENT NORMAL MORPHOLOGY (NORM); RBC MORPHOLOGY COMMENT NORMAL MORPHOLOGY (NORM); WBC MORPHOLOGY COMMENT NORMAL MORPHOLOGY (NORM)
[2017-08-28] MEDS ORDERED: OMEPRAZOLE 20 MG CAPSULE PO SCH (07:30)
[2017-08-28] MEDS: POTASSIUM CHLORIDE 20 MEQ TAB PO SCH ×2 (07:33→18:06)
[2017-08-28] MEDS: OMEPRAZOLE 20 MG CAPSULE PO SCH (07:34)
[2017-08-28] MEDS: Apixaban 5 MG TABLET PO SCH ×2 (08:26→21:00)
[2017-08-28] MEDS: CHOLECALCIFEROL 1000 IU TABLET PO SCH (08:27)
[2017-08-28] MEDS: HYDROCORTISONE 10 MG TABLET PO SCH ×2 (08:27→21:00)
[2017-08-28] MEDS: MAGNESIUM OXIDE 400 MG TABLET PO SCH ×2 (08:27→21:00)
[2017-08-28] MEDS: ALLOPURINOL 300 MG TABLET PO SCH (08:28)
--- NOTE | 2017-08-28 08:47 | PDOC(PROG) ---
Date and Time of Service: 08/28/2017 8:44 AM Interval History: Subjective Patient complaining from pain in the right forearm. There is an area some swelling and tenderness. She attributed that to her gout. The swelling seemed to be less in the legs compared to what it was. Objective : Data - Labs CBC and BMP: 08/28/17 04:14 08/28/17 04:14 Objective : Exam - General General Appearance: No Acute Distress, Cooperative, Obese - Head Head Exam: Normal Inspection - Eye Eye Exam: Normal Appearance - ENT ENT Exam: Normal Exam - Neck Neck Exam: Normal Inspection - Respiratory Respiratory Exam: Clear to Auscultation - Bilaterally - Cardiovascular Cardiovascular Exam: RRR, Systolic Murmur - GI/Abdominal GI/Abdominal Exam: Normal Bowel Sounds, Non Tender, Non Distended, Ostomy Present, No Organomegaly - Rectal Rectal Exam: Deferred - External Exam: Deferred - Extremities Additional Extremities Exam Details: I think the swelling in the legs is less compared to what it was yesterday. - Neurological Neurological Exam: Alert, Oriented x 3, CN II-XII Intact, Speech Intact / Clear - Psychiatric Psychiatric Exam: Normal Affect Assessment and Plan - Patient Problems (1) Paroxysmal atrial fibrillation Current Visit: No Status: Resolved Onset Date: 05/23/16 Comment: This is resolved. It was more like atrial fibrillation versus SVT and and no recurrence since the night before. Code(s): I48.0 - Paroxysmal atrial fibrillation (2) Adrenal insufficiency Current Visit: No Status: Acute Comment: Continue hydrocortisone Code(s): E27.40 - Unspecified adrenocortical insufficiency (3) Hypomagnesemia Current Visit: No Status: Acute Comment: This was replaced Code(s): E83.42 - Hypomagnesemia (4) Leg edema Current Visit: No Status: Acute Comment: Swelling is less I think will put her on oral Lasix. Code(s): R60.0 - Localized edema (5) Gout Current Visit: Yes Status: Acute Comment: She has a history of gout and I think the area on the right forearm is probably an attack of gout. I will add low prednisone dosage to the steroid. We'll keep her another night as an inpatient see how she looks tomorrow and may consider switching her back to swing bed. Code(s): M10.9 - Gout, unspecified
[2017-08-28] MEDS ORDERED: FLUTICASONE PROPIONATE 16 GRAM (120 SPRAYS / BOTTLE) ENOS SCH (09:00)
[2017-08-28] MEDS ORDERED: HYDROCORTISONE 10 MG TABLET PO SCH (09:00)
[2017-08-28] MEDS ORDERED: CHOLECALCIFEROL 1000 IU TABLET PO SCH (09:00)
[2017-08-28] MEDS ORDERED: DILTIAZEM HCL CD 120 MG CAP PO SCH ×2 (09:00)
[2017-08-28] MEDS ORDERED: ALLOPURINOL 300 MG TABLET PO SCH (09:00)
[2017-08-28] MEDS ORDERED: FLUDROCORTISONE ACETATE 0.1 MG TABLET PO SCH (09:00)
[2017-08-28] MEDS: HYDROcodone-APAP 7.5 MG-325 MG TABLET PO PRN (09:19)
[2017-08-28] MEDS: CLARITHROMYCIN 500 MG PO SCH ×2 (09:24→21:00)
[2017-08-28] MEDS: predniSONE Tab 20 MG TAB PO SCH (09:24)
[2017-08-28] MEDS: FUROSEMIDE 20 MG TABLET PO SCH (13:20)
--- NOTE | 2017-08-28 14:50 | PTI REPORT ---
Thank you for the referral of Ester Meek. She was seen on 08/28/17 for an inpatient evaluation secondary to significant weakness with gait abnormality as well as open wounds on the lower extremities and the coccyx. SUBJECTIVE: The patient is a 72-year-old female. Medical diagnoses include nausea and vomiting, UTI, adrenal insufficiency, hypocalcemia, and hyponatremia PAST MEDICAL HISTORY: Past medical history can be found in the patient's medical record. OBJECTIVE FINDINGS: General observations: At this time this patient is alert and oriented x3. The patient was sitting upright in a chair. Pain: The patient is complaining of pain in the right wrist due to gout symptoms and is unable to support weight on the right wrist due to the pain and swelling in the wrist. Transfers: The patient was able to come to standing position with moderate assist of 2 using walker for support. Ambulation: The patient did not attempt to ambulate as she was unable to support weight on that right wrist due to pain. Strength: Strength in the lower extremities is 3/5. Range of motion: Range of motion in the lower extremities is within functional limits. Wounds: The patient does have a number of open wounds: *Open wound on the coccyx which has a Mepilex dressing in tact. This dressing was not removed. *Healing wound on the right lateral knee from a previous skin tear. The wound is covered with a layer of healing tissue. No open area is noted on this spot. *Open area on the left small toe which measures 0.6 centimeters in diameter which is covered with a very small amount of fibren. There is no drainage from this wound. This wound was cleansed with dermal wound cleanser and dressed with Mepilex dressing. *Open wound on the right medial arch which measures 0.7 centimeters wide x 0.9 centimeters long. It is covered with dark fibren tissue with no drainage noted. The wound was cleansed with dermal wound cleanser and dressed with Mepilex. *Open wound on mid anterior left gonzales which measures 0.5 centimeters wide x 0.8 centimeters long. There is no drainage and a very small amount of fibren in the wound bed. The wound was cleansed with dermal wound cleanser and dressed with Mepilex. Wound precautions were observed for all wound care. ASSESSMENT: Problem List: Open wounds Risk of infection Short-Term Goals: To be met by discharge from inpatient: Patient will demonstrate independent transfers in and out of bed and chair. Patient will demonstrate lower extremity strength bilaterally of 3+/5. Patient will ambulate 60 feet with a four wheeled walker. Patient will demonstrate wound healing in the left small toe, the left anterior tibia, and the right medial arch. Long-Term Goals: To be met following discharge from inpatient: Patient will demonstrate independence with functional transfers and ambulation within her home. TREATMENT PLAN: Patient will be seen B.I.D during the week and one time per day over the weekend as an inpatient to address the above goals and objectives. Plan of care was reviewed with the patient and agreed upon. INITIAL TREATMENT: Treatment today consisted of the initial evaluation activities only. Note done by: Mariely Varghese, PT ALEM
--- NOTE | 2017-08-28 15:14 | OTI REPORT ---
Thank you for the referral of Ester Meek. She was seen on 08/28/17 for an occupational therapy inpatient evaluation secondary to generalized weakness. SUBJECTIVE: The patient is a 72-year-old female who has been in the hospital secondary to weakness and nausea. Prior to today, the patient had to be transitioned to an ICU room due to some heart issues with her a-fib. At this time the patient has been moved back to a inpatient room and we have received occupational therapy and physical therapy orders for continued weakness. The patient reports that she continues to feel weak. She is slightly tired today but agrees to participate in initial evaluation. She does report that her goals include getting her strength back and being able to complete all ADL tasks. The patient lives in [place] with her . She does live in a trailer and she is not able to use the four wheeled walker in the trailer. She does use a four wheeled walker when ambulating within the community. Within the home she uses a cane. The patient reports that she is able to use stairs with hand rails to enter the trailer because her built some smaller steps. The patient does report a lot of pain in the right wrist today secondary to gout. PAST MEDICAL HISTORY: Past medical history can be found in the patient's medical record. OBJECTIVE FINDINGS: Range of motion: The patient demonstrated upper extremity range of motion within functional limits for the shoulder, elbow, hand, and wrist; however, functional range of motion is limited in the right wrist at this time to approximately 50% of full due to the patient's report of gout. The wrist did present with redness and edema. Strength: The patient demonstrates weakness in the shoulders, elbows, hands, and wrists and demonstrated manual muslce strength of 3/5. Activities of daily living: The patient did demonstrate the ability to complete face washing task while seated in the chair with set up assistance. The patient was able to put deodorant on under the right arm; however, not the left secondary to inability to hold onto deodorant with her right hand at this time. Transfers: The patient required min to mod assist to complete sit to stand transfer. The patient tolerated standing x1 minute before requiring rest break. ASSESSMENT: Problem List: Upper extremity weakness Decreased ability to perform functional mobility tasks Decreased ability to perform ADLs Decreased activity tolerance Short-Term Goals: To be met by discharge from inpatient: Patient will be able to tolerate 10 minutes of standing grooming tasks at the sink before requiring a rest break. Patient will increase manual muscle grade upper extremity strength by one grade bilaterally for the shoulder, elbow, hand, and wrist. Patient will complete lower extremity dressing tasks with set up assistance. Patient will complete upper extremity dressing with set up assistance. Patient will complete sit to stand transfers and functional mobility tasks for toilet/bed/chair transfers with contact guard assist only. Patient will complete a seated showering task with one rest break with set up assistance only. Long-Term Goals: To be met following discharge from inpatient: Patient will be able to return home to prior level of function. TREATMENT PLAN: Patient will be seen B.I.D during the week and one time per day over the weekend as an inpatient to address the above goals and objectives. INITIAL TREATMENT: Treatment today consisted of the initial evaluation followed by seated grooming tasks to include face washing and changing her gown as well as functional transfers. ALEM
--- NOTE | 2017-08-28 16:00 | OT.PROG ---
Progress Note Progress Note: Occupational Therapy; 15 min S: pt stated that she was feeling okay. she was in pain due to inflammation in her R hand due to gout. pt agreed to complete light therapy. O: pt completed YTB exercises of biceps x20, triceps x20, extension x20, flexion x20, chest pulls x20, abduction x20. pt completed 1# BUE exercises of shoulder flexion x10, punch outs x10, biceps curls x10. A: pt tolerated session well and was an active participant in therapy today. P: continue POC
[2017-08-28 16:51] VITALS: RESP 18
[2017-08-28] MEDS: Rosuvastatin Tab 20 MG TAB PO SCH (21:00)
[2017-08-29 04:30] VITALS: O2SAT 93
[2017-08-29 05:50] LABS: BLOOD UREA NITROGEN 19 mg/dL (7-22); BUN/CREATININE RATIO 31.66 (6-20)
[2017-08-29] MEDS: FUROSEMIDE 20 MG TABLET PO SCH (07:09)
[2017-08-29] MEDS: OMEPRAZOLE 20 MG CAPSULE PO SCH (07:10)
[2017-08-29] MEDS: POTASSIUM CHLORIDE 20 MEQ TAB PO SCH (07:10)
--- NOTE | 2017-08-29 07:31 | DCSUMMARY ---
Hospitalization Summary Admit Date: 08/26/2017 Discharge Date: 08/29/17 Hospital Course: Discharge diagnoses 1. Episode of for supraventricular tachycardia resolved, atrial flutter versus SVT converted sinus rhythm 2. History of asthma 3. Gout 4. History of recurrent cellulitis and osteomyelitis 5. History of CHF secondary to systolic dysfunction 6. Coronary artery disease with a history of stents 7. History of hypertension 8. History of multiple abdominal surgeries for pelvic abscess and colovesical fistula 9. History of mycobacterial infection of the skin 10. GERD 11. History of diverticulitis 12. History of recent PE 13. 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 History of colostomy Hospital course This is a 72-year-old old female with medical history significant for history of coronary artery disease with previous stents, CHF, hypertension, history of previous pelvic abscess with multiple surgeries and ended up with a colostomy, history of gout on steroid. Who was admitted to the hospital on the because of nausea and vomiting and weakness. When she came into the ER at that time the reason for her hypotension was unclear but probably was multifactorial including dehydration, possibility of worsening adrenal insufficiency, possible infection and she was also found to have a small PE. She was admitted and was given fluids, initially she did need some vasodepressor , was put on anticoagulant with eliquis treated empirically with antibiotics until cultures were negative. She remained weak so her status was changed to swing bed status. She developed leg swelling and was put back on Lasix. Also she was put on Florinef. While she was on swing bed status on the she developed fast heart rate was in the 150s the EKG showed narrow QRS complex tachycardia , either atrial flutter versus SVT so she was transferred to the ICU and admitted as an inpatient by Dr. Bynum. She was put on IV diltiazem drip. I took over the next day by that time she converted to sinus rhythm. We we transferred her from the ICU and she was put on Cardizem by mouth. However she had an episode also of gout so we added prednisone to her medications. we continued for the swelling in her legs with Lasix and I DC'd the Florinef. On the she was doing better the gout seem to be resolved. She is in sinus rhythm but at time she goes to sinus tachycardia. I increased the dosage of the Cardizem further. We continued with oral Lasix we thought since she still weak that she can go back to swing bed and continue physical therapy. We'll try to taper the prednisone gradually. Discharge instruction Diet regular Activity as started Medications Active Medications Hydrocodone Bitart/Acetaminophen ([place] 7.5/325 Tab) 1 tab PO Q6H PRN PRN Reason: Pain Last Admin: 08/28/17 09:19 Dose: 1 tab Allopurinol (Zyloprim) 300 mg PO DAILY [facility] Last Admin: 08/28/17 08:28 Dose: 300 mg Apixaban (Eliquis) 5 mg PO BID [facility] Last Admin: 08/28/17 21:00 Dose: 5 mg Cholecalciferol (Vitamin D3) 2,000 iu PO DAILY [facility] Last Admin: 08/28/17 08:27 Dose: 2,000 iu Diltiazem HCl (Cardizem Cd) 180 mg PO DAILY [facility] Furosemide (Lasix) 20 mg PO BID@0700,1300 [facility] Last Admin: 08/29/17 07:09 Dose: 20 mg Hydrocortisone (Hydrocortisone) 5 mg PO BEDTIME [facility] Last Admin: 08/28/17 21:00 Dose: 5 mg Hydrocortisone (Hydrocortisone) 15 mg PO DAILY [facility] Last Admin: 08/28/17 08:27 Dose: 15 mg Lidocaine HCl (Xylocaine Uro-Ject 2%) 10 ml TOPICAL ONCE PRN PRN Reason: Discomfort catheter insertion Lidocaine HCl (Lidocaine Buffered Inj) 0.5 ml SUBD ONCE PRN PRN Reason: IV Starts Magnesium Oxide (Mag-Ox) 400 mg PO BID [facility] Last Admin: 08/28/17 21:00 Dose: 400 mg Non-Formulary Drug - Clarithromycin 500mg Tablet 1 tab PO BID [facility] Last Admin: 08/28/17 21:00 Dose: 1 tab Omeprazole (Prilosec) 20 mg PO DAILY@0730 [facility] Last Admin: 08/29/17 07:10 Dose: 20 mg Ondansetron HCl (Zofran Odt) 4 mg PO Q6H PRN PRN Reason: nausea/vomiting Potassium Chloride (Klor-Con) 40 meq PO BID MEALS [facility] Last Admin: 08/29/17 07:10 Dose: 40 meq Prednisone (Deltasone Tab) 20 mg PO DAILY [facility] Last Admin: 08/28/17 09:24 Dose: 20 mg Rosuvastatin Calcium (Crestor) 40 mg PO BEDTIME [facility] Last Admin: 08/28/17 21:00 Dose: 40 mg Sodium Chloride (Saline Flush) 5 - 20 ml IVP BID PRN PRN Reason: Flush Follow-up patient status will be changed to swing bed status continue physical therapy Exam - Vitals Vital Signs: Vital Signs Temperature 97.0 F Temperature Source Temporal Artery Scan Pulse Rate [Pulse Oximeter] 98 Pulse Rate [Telemetry] 87 Pulse Rate [Apical] 85 Pulse Rate 93 Respiratory Rate 18 Blood Pressure [Left Arm] 135/53 Blood Pressure [Right Arm] 141/62 Blood Pressure 110/41 Pulse Ox 93 Oxygen Flow Rate 1 Oxygen Delivery Method Room Air Height 5 ft 7 in Weight 154 lb 3.2 oz - General General Appearance: No Acute Distress, Cooperative - Head Head Exam: Normal Inspection - Eye Eye Exam: POSITIVE: Normal Appearance - ENT ENT Exam: POSITIVE: Normal Exam - Neck Neck Exam: Normal Inspection - Respiratory Respiratory Exam: POSITIVE: Clear to Auscultation - Bilaterally - Cardiovascular Cardiovascular Exam: POSITIVE: RRR - GI/Abdominal GI/Abdominal Exam: POSITIVE: Normal Bowel Sounds, Non Tender, Non Distended, Soft, No Organomegaly Additional GI/Abdominal Exam Details: Colostomy in place - Rectal Rectal Exam: POSITIVE: Deferred - External Exam: POSITIVE: Deferred - Extremities Additional Extremities Exam Details: The areas of gout in the right forearm and the first MCP joints seem to be improved. The edema in her legs also seemed to be improved. - Neurological Neurological Exam: POSITIVE: Alert, Oriented x 3 - Psychiatric Psychiatric Exam: POSITIVE: Normal Affect Patient Problems - Patient Problem List (1) Paroxysmal atrial fibrillation Status: Resolved Onset Date: 05/23/16 Code(s): I48.0 - Paroxysmal atrial fibrillation Category: Medical (2) Adrenal insufficiency Status: Acute Code(s): E27.40 - Unspecified adrenocortical insufficiency Category: Medical (3) Hypomagnesemia Status: Acute Code(s): E83.42 - Hypomagnesemia Category: Medical (4) Leg edema Status: Acute Code(s): R60.0 - Localized edema Category: Medical (5) Gout Status: Acute Code(s): M10.9 - Gout, unspecified Category: Medical
[2017-08-29 08:15] VITALS: BP 123/40; TEMP 97.8
--- NOTE | 2017-08-29 08:35 | PT PM DAY ---
Diagnosis : Weakness PM - Physical Therapy S: The patient reports no pain at rest. O: The patient was seen today for fitting of a pressure relief shoe to offload the wound on the arch of the medial right foot with a custom made shoe, BRIANA fisher MD. The wound was marked and the shoe was customized to offload that wound. We did stand and walk with demonstration of good shoe fit and no mobility and no motion allowed over the foot bed with her ambulation. The patient was also seen today for lower extremity strengthening including hip flexion/extension, resisted hip abduction/adduction, long arc quads, sit to stands x4, and gait training. The patient was able to ambulate 30 feet with a front wheeled walker. A: The patient's tolerance for activity is much improved. P: Continue seeing patient BID during the week and one time per day over the weekend for transfers, ambulation, and range of motion/strengthening exercises. Note done by: Mariely Varghese, PT ALEM
[2017-08-29] MEDS ORDERED: DILTIAZEM HCL CD 120 MG CAP PO SCH (09:00)
[2017-08-29] MEDS ORDERED: DILTIAZEM CD 180 MG CAP PO SCH (09:00)
[2017-08-29] MEDS: HYDROCORTISONE 10 MG TABLET PO SCH (09:01)
[2017-08-29] MEDS: predniSONE Tab 20 MG TAB PO SCH (09:02)
[2017-08-29] MEDS: ALLOPURINOL 300 MG TABLET PO SCH (09:02)
[2017-08-29] MEDS: MAGNESIUM OXIDE 400 MG TABLET PO SCH (09:02)
[2017-08-29] MEDS: CHOLECALCIFEROL 1000 IU TABLET PO SCH (09:03)
[2017-08-29] MEDS: Apixaban 5 MG TABLET PO SCH (09:04)
[2017-08-29] MEDS: CLARITHROMYCIN 500 MG PO SCH (10:29)
--- NOTE | 2017-08-29 16:43 | OT AM DAY ---
Diagnosis : Weakness AM - Occupational Therapy S: Upon OT arrival the patient reports she is feeling pretty good. She changed her colostomy bag this morning with the assistance of the nurse and also got dressed. She reports that she would like to try to walk down to therapy. The patient does report an increase in right wrist pain secondary to gout. O: The patient completed therapeutic exercises in the form of upper body ergometer x3 minutes forward and 3 minutes backward with a short rest break in between. The patient also completed shoulder flexion holds x30 seconds x2, shoulder flexion with zero pounds x10, shoulder abduction with zero pounds x10, seated punches x10, and functional transfers with minimal assistance from a low surface. A: The patient tolerated therapy fair this morning. She continues to benefit from skilled care secondary to weakness. P: Continue seeing patient BID during the week and one time per day over the weekend until discharge. ALEM
== END 2017-08-29 10:00 | disposition swing bed (61) | DRG 309 ==
LOC: ICU 20:40 → MED/SURG 08-27 15:18
PROVIDERS: ADMIT Internal Medicine; ATTEND Internal Medicine

== ENCOUNTER 2018-07-21 10:52 | Inpatient (IN) ==
[2018-07-21] MEDS ORDERED: Ertapenem Inj 1 GM in Sodium Chloride 0.9% 100 ML IV ONE (11:44)
[2018-07-21 11:45] LABS: Hematocrit [HCT] 42.7 % (37.0-47.0); Hemoglobin [HGB] 13.5 g/dL (12.0-16.0); MEAN CORPUSCULAR HEMOGLOBIN 26.9 PG (27-31); MEAN CORPUSCULAR HGB CONC 31.6 g/dL (33-37); MEAN CORPUSCULAR VOLUME 85.1 FL (81-99); MEAN PLATELET VOLUME 11.1 FL (7.4-12.2); RED BLOOD COUNT 5.02 10^6/uL (4.20-5.40)
[2018-07-21] MEDS ORDERED: Sodium Chloride 0.9% 100 ML IV ONE (11:48)
[2018-07-21 12:03] LABS: PLATELET MORPHOLOGY COMMENT NORMAL MORPHOLOGY (NORM); RBC MORPHOLOGY COMMENT NORMAL MORPHOLOGY (NORM)
[2018-07-21 12:04] LABS: BAND NEUTROPHILS % 2 % (0-10); BASOPHILS % (MANUAL) 1 % (0-1); EOSINOPHILS % (MANUAL) 7 % (0-8); METAMYELOCYTES % 0 %; MONOCYTES % (MANUAL) 6 % (0-12); MYELOCYTES % 0 %; NEUTROPHILS % (MANUAL) 61 % (50-80); PROMYELOCYTES % 0 %; WBC MORPHOLOGY COMMENT SEE COMMENTS (NORM)
[2018-07-21 12:09] LABS: BLOOD UREA NITROGEN 17 mg/dL (7-22); BUN/CREATININE RATIO 21.25 (6-20); SERUM ALBUMIN 3.4 g/dL (3.5-4.8)
--- NOTE | 2018-07-21 12:41 | PDOC ---
HPI - History of Present Illness Date of Service: 07/21/18 Time of Service: 13:00 Chief Complaint: Worsening infection of the middle toe of the left foot History of Present Illness: This is 73 years old female with complicated medical history that include coronary artery disease with history of previous stents, history of congestive heart failure before, history of asthma on chronic steroid treatment, adrenal insufficiency likely secondary to chronic steroid treatment, history of paroxysmal A. fib, hypercholesterolemia, history of previous diverticulitis and previous surgery that ended up with colostomy, history of chronic mycobacterial infection of the leg on chronic erythromycin treatment and history of gout is been treated by Dr. Cazares, the plane tender for ulceration of the left third toe, she's been doing dressing changes antibiotic treatment she does not complain from pain in the foot or the toe even when she puts weight on it. She was sent to the ER yesterday as there is some area of redness just proximal to the 2 on the dorsum of the left foot she had an x-ray and was discussed with Dr. Cazares and they decided to give her a dosage of Invanz yesterday and to come again for reevaluation. Apparently she was seen again by him today and she was sent to the ER with a plan for amputation of the toe. Currently the patient is denying symptoms is no pain no chills no fever. She was on eliquis and was discontinued 2 months ago she couldn't tell me by whom. Past Medical History Medical History: 1. History asthma. 2. gouty arthropathy. 3. Recurrent cellulitis and osteomyelitis. 4. Congestive heart failure secondary to systolic dysfunction. 5. Coronary artery disease with a history of stents. 6. hypertension. 7. Diastases rectus. 8. chronic colovesical fistula status post surgery. 9. history of diverticulitis. 10. GERD. 11. Pigtail catheter drainage is on a couple of occasions, as well as exploratory laparotomy with drainage of abscess and colostomy with sigmoid colectomy done. 12. History of paroxysmal A. fib, was on eliquis was discontinued but she is not sure by whom. 13. History of mycobacteria infection of the left leg she is on clarithromycin chronically. 14. Admission March 2018 to for sepsis and adrenal insufficiency. 15. Chronic steroid dependence. Surgical History: Multiple back surgeries. Tonsillectomy and adenoidectomy. Appendectomy. Colonoscopy. Upper endoscopy. Sinus surgery. Sigmoid colectomy. End colostomy. Multiple pigtail abscess drainage catheters. Pertinent Family History: She states her father had emphysema problems. Past Social History: Does not smoke or drink alcohol. . Has 3 biologic children, one has MS and the other has ALS. She raised 6 children altogether however. Tobacco Use: Never Smoker In the Past 12 Months, Have Used or Abuse Any of the Following Substance: None Medication / Allergies Home Medications: Home Medications Medication Instructions Recorded Confirmed Type Hydrocortisone 10 mg PO BID #270 tab 09/08/17 07/21/18 Rx Magnesium Oxide [Mag-Ox] 400 mg PO BID #180 tab 09/08/17 07/21/18 Rx allopurinol 300 mg tablet 300 mg PO BID #60 tab 11/27/17 07/21/18 Rx amiodarone 200 mg tablet 200 mg PO QDAY #30 tab 02/24/18 07/21/18 Rx gabapentin 300 mg capsule 300 mg PO TID #90 cap 02/24/18 07/21/18 Rx potassium chloride ER 20 mEq 40 meq PO BID MEALS #90 tab 03/10/18 07/21/18 Rx tablet,extended release(part/cryst) Ventolin HFA 90 mcg/actuation 2 puff INH QID PRN #18 g NS 04/21/18 07/21/18 Rx aerosol inhaler hydrocodone 7.5 mg-acetaminophen 1 tab PO Q6H PRN #90 tab 04/21/18 07/21/18 Rx 325 mg tablet promethazine 25 mg tablet 25 mg PO Q8H PRN #12 tab 04/21/18 07/21/18 Rx albuterol sulfate 2.5 mg/3 mL 2.5 mg CONTINUOUS NEBULIZATION Q6H 06/24/18 07/21/18 History (0.083 %) solution for nebulization PRN vial cholecalciferol (vitamin D3) 1,000 1,000 unit PO QDAY tab 06/24/18 07/21/18 History unit tablet furosemide 40 mg tablet 60 mg PO QDAY PRN tab 06/24/18 07/21/18 History metoprolol succinate ER 50 mg 50 mg PO QDAY tab 06/24/18 07/21/18 History tablet,extended release 24 hr omeprazole 20 mg capsule,delayed 20 mg PO QDAY cap 06/24/18 07/21/18 History release clarithromycin 500 mg tablet 500 mg PO BID #10 tab 07/16/18 07/21/18 Rx rosuvastatin 10 mg tablet 10 mg PO QDAY #90 tab 07/16/18 07/21/18 Rx sulfamethoxazole 800 1 tab PO BID #20 tab 07/16/18 07/21/18 Rx mg-trimethoprim 160 mg tablet Allergies/Adverse Reactions: Allergies Allergy/AdvReac Type Severity Reaction Status Date / Time aspirin Allergy Severe SHORTNESS Verified 07/21/18 17:25 OF BREATH Penicillins Allergy Severe Anaphylaxis Verified 07/21/18 17:25 Review of Systems - Review of Systems All Systems: Reviewed & No Additional Complaints Except as Stated Exam - Vitals Vital Signs: Vital Signs Temperature 96.8 F Temperature Source Temporal Artery Scan Pulse Rate [Pulse Oximeter] 72 Respiratory Rate 18 Blood Pressure [Right Arm] 109/50 Pulse Ox 95 Oxygen Delivery Method Room Air Height 5 ft 7 in Weight 160 lb - General General Appearance: No Acute Distress, Cooperative - Head Head Exam: Normal Inspection - Eye Eye Exam: POSITIVE: Normal Appearance - ENT ENT Exam: POSITIVE: Normal Exam - Neck Neck Exam: Normal Inspection - Respiratory Respiratory Exam: POSITIVE: Clear to Auscultation - Bilaterally - Cardiovascular Cardiovascular Exam: POSITIVE: RRR - GI/Abdominal GI/Abdominal Exam: POSITIVE: Normal Bowel Sounds, Non Tender, Non Distended, Soft, No Organomegaly Additional GI/Abdominal Exam Details: Colostomy left lower quadrant - Rectal Rectal Exam: POSITIVE: Deferred - External Exam: POSITIVE: Deferred - Extremities Additional Extremities Exam Details: There is no edema in the legs. There is ulceration of the left middle toe, present both dorsum and the distal phalanx. Change in the color of that toe itself. Slight redness proximal to the toe itself. There is no tenderness. I didn't appreciate drainage. Very difficult to feel pulses in she said that's usual for her. - Neurological Neurological Exam: POSITIVE: Alert, Oriented x 3, CN II-XII Intact, No Facial Droop, Speech Intact / Clear, Moves All Extremities Equally - Psychiatric Psychiatric Exam: POSITIVE: Normal Affect Results - Labs CBC and BMP: 07/21/18 11:30 07/21/18 11:30 - EKG Data -: EKG Interpreted by Me Rate: Normal EKG Shows Normal: Sinus Rhythm (EKG shows right bundle branch block with sinus rhythm. I don't think there is ectopic atrial rhythm.) Assessment and Plan - Patient Problems (1) Cellulitis of third toe of left foot Current Visit: Yes Status: Acute Comment: There is cellulitis and ulceration of the toe, looks nonviable she is scheduled to have surgery today. She was given Invanz and will continue with Invanz. Will order an EKG prior to the surgery. I think she can proceed with surgery. She is not in congestive heart failure anymore. No active cardiac symptoms. Code(s): L03.032 - Cellulitis of left toe (2) Adrenal insufficiency Current Visit: No Status: Chronic Comment: She has history of adrenal insufficiency I think it's relative secondary to chronic steroid treatment. She is on hydrocortisone continue. However we'll give her stress doses before the surgery. Code(s): E27.40 - Unspecified adrenocortical insufficiency (3) Paroxysmal atrial fibrillation Current Visit: No Status: Resolved Onset Date: 05/23/16 Comment: Continue her amiodarone, metoprolol. She is not on anticoagulant now. Code(s): I48.0 - Paroxysmal atrial fibrillation (4) History of gout Current Visit: Yes Status: Acute Comment: Continue allopurinol Code(s): Z87.39 - Personal history of other diseases of the musculoskeletal system and connective tissue
[2018-07-21] MEDS ORDERED: HYDROCORTISONE 100 MG/2 ML IVP ONE ×2 (13:56→23:55)
[2018-07-21] MEDS ORDERED: CALCIUM CARBONATE 500 MG (TUMS) CHEWABLE TABLET PO PRN (13:59)
[2018-07-21] MEDS ORDERED: DOCUSATE 100 MG CAPSULE PO PRN (13:59)
[2018-07-21] MEDS ORDERED: LIDOCAINE W/ SODIUM BICARB 0.5 ML SYR SUBD PRN (13:59)
[2018-07-21] MEDS ORDERED: ACETAMINOPHEN 325 MG TABLET PO PRN (13:59)
--- NOTE | 2018-07-21 14:05 | EKG ---
[address] [place] [address] Measurements Intervals [place] Rate: 66 P: -56 FL: 144 QRS: -41 QRSD: 155 T: 6 QT: 471 QTc: 484 Interpretive Statements SINUS RHYTHM LEFT ANTERIOR HEMIBLOCK RIGHT BUNDLE BRANCH BLOCK SHORT FL INTERVAL LEFT ATRIAL ENLARGEMENT Compared to ECG 03/01/2018 05:30:30 Left anterior hemiblock now present Electronically Signed On 07-21-18 16:26:01 [facility] by Keny Vazquez [email or web address]
[2018-07-21] MEDS ORDERED: ALBUTEROL SULFATE 2.5 MG/3 ML NEB PRN (15:00)
[2018-07-21] MEDS ORDERED: BUPivacaine Inj 0.25% PF - 10ml vial ONE ×2 (15:53→17:35)
[2018-07-21] MEDS ORDERED: fentaNYL Inj 250 MCG/5 ML VIAL ONE (15:53)
[2018-07-21] MEDS ORDERED: KETAMINE 100 MG/1 ML - 5 ML ONE (15:53)
[2018-07-21] MEDS ORDERED: MIDAZOLAM 5 MG/1 ML ONE (15:53)
[2018-07-21] MEDS ORDERED: FAMOTIDINE 20 MG/2 ML VIAL IVP ONE (15:54)
[2018-07-21] MEDS ORDERED: CITRIC ACID/SODIUM CITRATE 30 ML CUP PO ONE (15:54)
[2018-07-21] MEDS ORDERED: Lactated Ringers 1,000 ML PRIMARY IV ONE (15:58)
[2018-07-21] MEDS ORDERED: LIDOCAINE W/ SODIUM BICARB 0.5 ML SYR ONE (16:10)
[2018-07-21] MEDS ORDERED: BUPivacaine Inj 0.5% PF (5mg/ml) 10ml vial ONE (17:08)
[2018-07-21] MEDS ORDERED: BACITRACIN 50,000 UNIT VIAL IRRIG ONE (17:29)
[2018-07-21] MEDS ORDERED: Sodium Chloride 0.9% vial 10 ML ONE (17:29)
[2018-07-21] MEDS: POTASSIUM CHLORIDE 20 MEQ TAB PO SCH (17:47)
--- NOTE | 2018-07-21 18:16 | CRNA.PROCE ---
Nerve Block Documentation - - Safety Measures: Site Verified - - Position for Nerve Block: Supine Moniters Used During Block: EKG, SPO2, NIBP Oxygen Supplemented: Yes Sedation Used - Enter Amount in Comment Field [ANES.SEDAT]: Midazolam (mg): Yes (1mg), Fentanyl (mcg): Yes (50mcg) Skin Prep Used: ChloroPrep Draped: No Local Anesthetic - Enter Amt in Comment Field [ANES.LOCNB]: 0.25 % Bupivacaine Plain (mL): Yes (15cc) - - PreOp Block : Time In: 16:25 PreOp Block : Time Out: 16:35 - - Additional Details: Ray block was placed in preop holding. [facility] Anesthesia Time - Other Weight: 71.384 kg Height: 5 ft 7 in Body Mass Index (BMI): 24.6
--- NOTE | 2018-07-21 18:17 | CRNA.PROGR ---
Anesthesia Time - Procedure/Recovery Time Start Date: 07/21/18 Anesthesia : Time In: 16:53 Anesthesia : Time Out: 18:13 - Block Time PreOp Block : Time In: 16:25 PreOp Block : Time Out: 16:35 - Other Weight: 71.384 kg Height: 5 ft 7 in Body Mass Index (BMI): 24.6 Physical Status: P3 Anesthesia Type: MAC (Inpatient, urgent)
--- NOTE | 2018-07-21 18:38 | GEN.OPNOTE ---
Operative Report - Operative Report Surgeon: Tim Cazares DPM Anesthesia Type: Local, MAC Anesthesia Provider: Lianet Bhatia CRNA Surgery Date: 07/21/18 Preoperative Diagnosis: 1.Osteomyelitis third digit left foot, severe swelling, severe cellulitis going up the foot with probing to bone on the toe and full- thickness necrotic ulcer. Postoperative Diagnosis: Same Procedure: Amputation third digit left foot. Indications for the Procedure: Osteomyelitis third digit left foot, full thickness necrotic ulcer third digit left foot that probes down to soft bone, cellulitis that is traveling of the foot and causing swelling and redness. Description of Procedure: Under mild sedation the patient was wheeled to the operating room placed on the operating table in supine position. The left foot was prepped and scrubbed with Betadine. A local ray block was then administered proximal to the toe using 0.5% Marcaine. After the foot was prepped and draped. Cultures were then taken of the ulcer down to bone and the distal portion of the toe was removed form the field. Gloves were then changed. The toe was prepped again. A [id number] fish[place] incision was made and the proximal phalanx was removed in total at the metatarsal phalangeal joint removing the toe in total. Cultures were taken. The wound was then flushed with bacitracin. Deep subcutaneous tissues were reapproximated and coapted with 4-0 Vicryl. The skin was then reapproximated and coapted with 4-0 nylon. Dry sterile dressing was applied with extra padding. The patient will be readmitted to the floor. [id number]
[2018-07-21] MEDS ORDERED: HYDROcodone-APAP 7.5 MG-325 MG TABLET PO PRN (19:38)
[2018-07-21] MEDS: MAGNESIUM OXIDE 400 MG TABLET PO SCH (20:29)
[2018-07-21] MEDS: ALLOPURINOL 300 MG TABLET PO SCH (20:29)
[2018-07-21] MEDS: CLARITHROMYCIN 500 MG PO SCH (20:49)
--- NOTE | 2018-07-21 23:24 | PDOC ---
General Adult HPI - General Chief Complaint: Wound Recheck / Suture Removal Stated Complaint: WOUND RECHECK Date Seen by Provider: 07/21/18 Time Seen by Provider: 10:55 Source: POSITIVE: Patient Exam Limitations: POSITIVE: No limitations Nurse's Notes Reviewed & Considered: Yes - History of Present Illness Initial Comment: The patient is a 73-year-old female who returns to the emergency department for a recheck on her left third toe. She had been being treated for a wound infection on the toe as an outpatient and wound therapy. The toe seemed worse and she was evaluated in the emergency department yesterday. She had a necrotic appearing toe and was given a dose of IV Invanz. Dr. Cazares had been contacted and recommended that she come back today for a reevaluation. The patient states that she does not have any increased pain, she has not had any fevers or chills or any other systemic symptoms. The patient states that she last ate at approximately 8:30 or 9:00 this morning. She is not currently taking any blood thinners. Have you received a tetanus shot in the past 10 years?: Yes - Patient Home Medications Home Medications: Home Medications Hydrocortisone 10 mg PO BID #270 tab 09/08/17 Magnesium Oxide [Mag-Ox] 400 mg PO BID #180 tab 09/08/17 allopurinol 300 mg tablet 300 mg PO BID #60 tab 11/27/17 amiodarone 200 mg tablet 200 mg PO QDAY #30 tab 02/24/18 gabapentin 300 mg capsule 300 mg PO TID #90 cap 02/24/18 potassium chloride ER 20 mEq tablet,extended release(part/cryst) 40 meq PO BID MEALS #90 tab 03/10/18 Ventolin HFA 90 mcg/actuation aerosol inhaler 2 puff INH QID PRN #18 g NS 04/21/18 hydrocodone 7.5 mg-acetaminophen 325 mg tablet 1 tab PO Q6H PRN #90 tab 04/21/18 promethazine 25 mg tablet 25 mg PO Q8H PRN #12 tab 04/21/18 albuterol sulfate 2.5 mg/3 mL (0.083 %) solution for nebulization 2.5 mg CONTINUOUS NEBULIZATION Q6H PRN vial 06/24/18 cholecalciferol (vitamin D3) 1,000 unit tablet 1,000 unit PO QDAY tab 06/24/18 furosemide 40 mg tablet 60 mg PO QDAY PRN tab 06/24/18 metoprolol succinate ER 50 mg tablet,extended release 24 hr 50 mg PO QDAY tab 06/24/18 omeprazole 20 mg capsule,delayed release 20 mg PO QDAY cap 06/24/18 clarithromycin 500 mg tablet 500 mg PO BID #10 tab 07/16/18 rosuvastatin 10 mg tablet 10 mg PO QDAY #90 tab 07/16/18 sulfamethoxazole 800 mg-trimethoprim 160 mg tablet 1 tab PO BID #20 tab 07/16/18 - Patient Allergies Allergies/Adverse Reactions: Allergies Allergy/AdvReac Type Severity Reaction Status Date / Time aspirin Allergy Severe SHORTNESS Verified 07/21/18 17:25 OF BREATH Penicillins Allergy Severe Anaphylaxis Verified 07/21/18 17:25 Past Medical History - heen HEENT History: Other (please comment) Additional HEENT History: Nasal Polyps Cardiovascular History: Hypertension, CHF, Hyperlipidemia Respiratory History: Asthma Gastrointestinal History: GERD, Colostomy Additional Gastrointestinal History: COLOSTOMY JUL 2016 Genitourinary History: Other (please comment) Additional Genitourinary History: colovesicular fistula Endocrine History: Denies History Musculoskeletal History: Arthritis, Gout, Back Pain, Back Injury, Joint Pain, Other (please comment) Prosthesis or Implant: No Additional Musculoskeletal History: BACK SURGERY IN JANUARY 2012 Neurological History: [place] Blood Disorders: Denies History Psychiatric History: Denies History History of Sexually Transmitted Diseases: No Cancer History: Denies History In Past Year Been Physically Harmed or Verbally Threatened: No History of MDRO: No History of Other Communicable Diseases: No Tobacco Use: Never Smoker Alcohol Use: Rarely In the Past 12 Months, Have Used or Abuse Any Substance: None Previous Surgical History: Yes Type / Date of Surgery: Back surgery x2, (the last time in 2011 they had to remove previous hardware), Nasal polypectomy ~1989, Appendectomy 1960, TONSILLECTOMY, SKIN GRAFTING LEFT LEG Anesthesia Reactions: No Malignant Hyperthermia: No Significant Family History: Heart disease, COPD Additional Family History: none Past Medical History Reviewed: Reviewed - No Changes ROS - Limitations ROS Limitations: No Limitations Constitution: DENIES: Chills, Fever Cardiovascular: REPORTS: Denies Cardiac Symptoms Respiratory: REPORTS: Denies Resp Symptoms Neurological: REPORTS: Denies Neuro Symptoms Gastrointestinal: REPORTS: Denies GI Symptoms General Adult Exam - General Appearance General Appearance: POSITIVE: Alert, Cooperative, No Acute Distress - HEENT HEENT: POSITIVE: Head Inspection Nml - Respiratory Respiratory: POSITIVE: No Respiratory Distress - Abdomen Abdomen: Soft: (All Quadrants), Denies Tenderness: (All Quadrants) - Extremities Additional Extremities Details: Examination left lower extremity does reveal some mild swelling to the left lower extremity, there is some erythema and a small nonhealing ulceration to the gonzales which apparently has been ongoing, examination of the left third toe reveals a necrotic appearing toe with purulent discharge noted, there is some erythema that extends up into the foot which has not extended past the demarcation noted from yesterday - Neurological / Psychological Neurological: POSITIVE: Oriented X3, Motor Normal, Sensation Normal General Adult Progress - Results Reviewed by me Lab Results Reviewed by Me: Yes Lab Results:: Laboratory Results 07/21/18 07/21/18 11:30 11:30 WBC 9.35 RBC 5.02 Hgb 13.5 Hct 42.7 MCV 85.1 MCH 26.9 L MCHC 31.6 L RDW Std Deviation 54.7 H RDW Coeff of Jackson 17.6 H Plt Count 271 MPV 11.1 Neutrophils % (Manual) 61 Band Neutrophils % 2 Lymphocytes % (Manual) 23 Monocytes % (Manual) 6 Eosinophils % (Manual) 7 Basophils % (Manual) 1 Metamyelocytes % 0 Myelocytes % 0 Promyelocytes % 0 Blast Cells 0 WBC Morphology Comment See comments Plt Morphology Comment Normal morphology RBC Morph Comment Normal morphology Sodium 139 Potassium 4.0 Chloride 105 Carbon Dioxide 26 Anion Gap 8 BUN 17 Creatinine 0.8 BUN/Creatinine Ratio 21.25 H Glucose 83 Calculated Osmolality 288.0 Calcium 8.9 Total Bilirubin 0.3 AST 48 H ALT 57 H Alkaline Phosphatase 118 C-Reactive Protein 2.4 H Total Protein 6.3 Albumin 3.4 L Globulin 2.9 Albumin/Globulin Ratio 1.10 L CBC and BMP: 07/21/18 11:30 07/21/18 11:30 - Patient's Progress MDM / ED Course: Pictures were taken of the left third toe and sent to Dr. Cazares. He recommended that the patient would benefit from amputation at this point as the toe appears to be nonviable. This recommendation was discussed with the patient. Repeat lab work was obtained. I subsequently discussed the patient with Dr. Gardner from the hospitalist service and he has agreed to admit the patient with pending surgery later this afternoon. The patient did receive Invanz 1 g IV. - Consult Counseled: POSITIVE: Patient, RE: Lab Results, RE: DX Patient Care Time - Estimated PCT Patient Care Time (In Minutes): 25 Vital Signs - VS Reviewed Vital Signs Reviewed: Yes Discharge Clinical Impression: Toe necrosis, Cellulitis of foot Discharge Disposition: Admit to Inpatient Condition: Stable Date Decision to Admit to Inpatient: 07/21/18 Time Decision to Admit to Inpatient: 11:30
[2018-07-22 05:37] LABS: BLOOD UREA NITROGEN 20 mg/dL (7-22); BUN/CREATININE RATIO 28.57 (6-20)
[2018-07-22] MEDS: FUROSEMIDE 40 MG TABLET PO SCH (07:18)
[2018-07-22] MEDS: OMEPRAZOLE 20 MG CAPSULE PO SCH (07:18)
[2018-07-22] MEDS: POTASSIUM CHLORIDE 20 MEQ TAB PO SCH ×2 (07:18→17:26)
[2018-07-22] MEDS ORDERED: HYDROCORTISONE 10 MG SCH ×2 (09:00→18:00)
[2018-07-22] MEDS: HYDROCORTISONE 20 MG TABLET PO SCH (09:44)
[2018-07-22] MEDS: MAGNESIUM OXIDE 400 MG TABLET PO SCH ×2 (09:44→20:31)
[2018-07-22] MEDS: METOPROLOL SUCCINATE 50 MG SR 24H TABLET PO SCH (09:44)
[2018-07-22] MEDS: AMIODARONE 200 MG TABLET PO SCH (09:44)
[2018-07-22] MEDS: ALLOPURINOL 300 MG TABLET PO SCH ×2 (09:45→20:31)
[2018-07-22] MEDS: CHOLECALCIFEROL 1000 IU TABLET PO SCH (09:45)
[2018-07-22] MEDS: Ertapenem Inj 1 GM in Sodium Chloride 0.9% 100 ML IV SCH (09:45)
[2018-07-22] MEDS: CLARITHROMYCIN 500 MG PO SCH ×2 (11:45→20:31)
[2018-07-22] MEDS ORDERED: Lidocaine 1% 10 MG/ML - 20 ML VIAL SUBCUT PRN (16:45)
[2018-07-22] MEDS ORDERED: HEPARIN 500 UNIT/5 ML SYRINGE FOR CENTRAL LINE IVP PRN (16:45)
[2018-07-22] MEDS ORDERED: LIDOCAINE 2% 20 MG/ML - 20 ML VIAL SUBCUT PRN (16:45)
[2018-07-22] MEDS ORDERED: HYDROCORTISONE 10 MG TABLET PO SCH (18:00)
--- NOTE | 2018-07-22 18:14 | PDOC(PROG) ---
Date of Service: 07/22/18 Time of Service: 09:00 Interval History: Subjective Patient denying new symptoms. She is denying pain in the foot. No nausea. Objective : Data - Labs CBC and BMP: 07/21/18 11:30 07/22/18 04:40 Objective : Exam - General General Appearance: No Acute Distress, Cooperative - Head Head Exam: Normal Inspection - Eye Eye Exam: Normal Appearance - ENT ENT Exam: Normal Exam - Neck Neck Exam: Normal Inspection - Respiratory Respiratory Exam: Clear to Auscultation - Bilaterally - Cardiovascular Cardiovascular Exam: RRR - GI/Abdominal GI/Abdominal Exam: Normal Bowel Sounds, Non Tender, Non Distended, Soft, No Organomegaly Additional GI/Abdominal Exam Details: Colostomy in place in the left lower quadrant - Rectal Rectal Exam: Deferred - External Exam: Deferred Exam: Deferred - Extremities Additional Extremities Exam Details: No edema. Dressing applied to the left foot. - Back Back Exam: Normal Inspection - Neurological Neurological Exam: Alert, Oriented x 3, CN II-XII Intact, No Facial Droop, Speech Intact / Clear, Moves All Extremities Equally Assessment and Plan - Patient Problems (1) Cellulitis of third toe of left foot Current Visit: Yes Status: Acute Comment: I did speak with the Dr. Robertson from infectious disease, he suggested to continue with the Invanz for 7 days. We'll try to get a PICC line for the patient tomorrow and arrange for her to have Invanz infused every day for 7 days. Code(s): L03.032 - Cellulitis of left toe (2) Adrenal insufficiency Current Visit: No Status: Chronic Comment: Continue hydrocortisone replacement Code(s): E27.40 - Unspecified adrenocortical insufficiency (3) Paroxysmal atrial fibrillation Current Visit: No Status: Resolved Onset Date: 05/23/16 Comment: Same medications including metoprolol and amiodarone. Code(s): I48.0 - Paroxysmal atrial fibrillation (4) History of gout Current Visit: Yes Status: Acute Comment: Continue allopurinol Code(s): Z87.39 - Personal history of other diseases of the musculoskeletal system and connective tissue
[2018-07-23] MEDS: FUROSEMIDE 40 MG TABLET PO SCH (06:58)
[2018-07-23] MEDS: OMEPRAZOLE 20 MG CAPSULE PO SCH (06:58)
--- NOTE | 2018-07-23 08:14 | DCSUMMARY ---
Hospitalization Summary Admit Date: 07/21/2018 Discharge Date: 07/23/18 Hospital Course: Discharge diagnoses 1. Osteomyelitis of the left third toe of the foot status post amputation 2. Osteomyelitis of the foot 3. History of asthma 4. History of coronary artery disease 5. History of hypertension 6. History of GERD 7. History of diverticulitis 8. History of pelvic abscess status post surgery in the past 9. 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 Steroid dependent Hospital course This is a 73 years old female, very complex medical history that includes coronary artery disease with history of previous stents, history of congestive heart failure before, history of asthma on chronic steroid treatment, history of adrenal sufficiency likely secondary to chronic steroid treatment, history of paroxysmal A. 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 Cazares. I did speak with infectious disease they suggested a week of Invanz treatment. Patient had a PICC line and will be discharge on outpatient treatment. We'll book her for outpatient appointment with infectious disease, we also booked her for outpatient appointment with vascular because of poor peripheral pulses, and she'll follow- up with her PCP. Discharge instruction Diet regular Activity as started Medications Current Medication(s) Medication Instructions Recorded Confirmed Type Hydrocortisone 10 mg PO BID #270 tab 09/08/17 07/23/18 Rx Magnesium Oxide [Mag-Ox] 400 mg PO BID #180 tab 09/08/17 07/23/18 Rx allopurinol 300 mg tablet 300 mg PO BID #60 tab 11/27/17 07/23/18 Rx amiodarone 200 mg tablet 200 mg PO QDAY #30 tab 02/24/18 07/23/18 Rx gabapentin 300 mg capsule 300 mg PO TID #90 cap 02/24/18 07/23/18 Rx potassium chloride ER 20 mEq 40 meq PO BID MEALS #90 tab 03/10/18 07/23/18 Rx tablet,extended release(part/cryst) Ventolin HFA 90 mcg/actuation 2 puff INH QID PRN #18 g NS 04/21/18 07/23/18 Rx aerosol inhaler hydrocodone 7.5 mg-acetaminophen 1 tab PO Q6H PRN #90 tab 04/21/18 07/23/18 Rx 325 mg tablet promethazine 25 mg tablet 25 mg PO Q8H PRN #12 tab 04/21/18 07/23/18 Rx albuterol sulfate 2.5 mg/3 mL 2.5 mg CONTINUOUS NEBULIZATION Q6H 06/24/18 07/23/18 History (0.083 %) solution for nebulization PRN vial cholecalciferol (vitamin D3) 1,000 1,000 unit PO QDAY tab 06/24/18 07/23/18 History unit tablet furosemide 40 mg tablet 60 mg PO QDAY PRN tab 06/24/18 07/23/18 History metoprolol succinate ER 50 mg 50 mg PO QDAY tab 06/24/18 07/23/18 History tablet,extended release 24 hr omeprazole 20 mg capsule,delayed 20 mg PO QDAY cap 06/24/18 07/23/18 History release clarithromycin 500 mg tablet 500 mg PO BID #10 tab 07/16/18 07/23/18 Rx rosuvastatin 10 mg tablet 10 mg PO QDAY #90 tab 07/16/18 07/23/18 Rx Ertapenem Inj [INVanz Inj] 1 gm IV Q24H #7 vial 07/23/18 07/23/18 Rx Follow-up with PCP, infectious disease, and Dr. Pat post discharge Condition at discharge was stable for discharge Exam - Vitals Vital Signs: Vital Signs Temperature 98.5 F Temperature Source Temporal Artery Scan Pulse Rate [Pulse Oximeter] 66 Pulse Rate 70 Respiratory Rate 20 Blood Pressure [Right Arm] 112/42 Blood Pressure 110/53 Pulse Ox 92 Oxygen Flow Rate RA Oxygen Delivery Method Room Air Height 5 ft 7 in Weight 157 lb 6.4 oz - General General Appearance: No Acute Distress, Cooperative - Head Head Exam: Normal Inspection - Eye Eye Exam: POSITIVE: Normal Appearance - ENT ENT Exam: POSITIVE: Normal Exam - Neck Neck Exam: Normal Inspection - Respiratory Respiratory Exam: POSITIVE: Clear to Auscultation - Bilaterally - Cardiovascular Cardiovascular Exam: POSITIVE: RRR - GI/Abdominal GI/Abdominal Exam: POSITIVE: Normal Bowel Sounds, Non Tender, Non Distended, Soft, No Organomegaly - Rectal Rectal Exam: POSITIVE: Deferred - External Exam: POSITIVE: Deferred - Extremities Additional Extremities Exam Details: No edema, dressing applied to left foot. - Back Back Exam: POSITIVE: Normal Inspection - Neurological Neurological Exam: POSITIVE: Alert, Reflexes Normal, CN II-XII Intact, No Facial Droop, Speech Intact / Clear, Moves All Extremities Equally - Psychiatric Psychiatric Exam: POSITIVE: Normal Affect Patient Problems - Patient Problem List (1) Cellulitis of third toe of left foot Status: Acute Code(s): L03.032 - Cellulitis of left toe Category: Medical (2) Adrenal insufficiency Status: Chronic Code(s): E27.40 - Unspecified adrenocortical insufficiency Category: Medical (3) Paroxysmal atrial fibrillation Status: Resolved Onset Date: 05/23/16 Code(s): I48.0 - Paroxysmal atrial fibrillation Category: Medical (4) History of gout Status: Acute Code(s): Z87.39 - Personal history of other diseases of the musculoskeletal system and connective tissue Category: Medical
[2018-07-23] MEDS: ALLOPURINOL 300 MG TABLET PO SCH (08:28)
[2018-07-23] MEDS: Ertapenem Inj 1 GM in Sodium Chloride 0.9% 100 ML IV SCH (08:28)
[2018-07-23] MEDS: CLARITHROMYCIN 500 MG PO SCH (08:28)
[2018-07-23] MEDS: METOPROLOL SUCCINATE 50 MG SR 24H TABLET PO SCH (08:28)
[2018-07-23] MEDS: CHOLECALCIFEROL 1000 IU TABLET PO SCH (08:28)
[2018-07-23] MEDS: HYDROCORTISONE 20 MG TABLET PO SCH (08:28)
[2018-07-23] MEDS: AMIODARONE 200 MG TABLET PO SCH (08:28)
[2018-07-23] MEDS: MAGNESIUM OXIDE 400 MG TABLET PO SCH (08:28)
[2018-07-23] MEDS ORDERED: POTASSIUM CHLORIDE 20 MEQ TAB PO SCH (09:00)
[2018-07-23 11:57] VITALS: BP 127/39; RESP 20; TEMP 97; O2SAT 93
--- NOTE | 2018-07-23 16:10 | DI ---
INSERTION OF PICC LINE WITH ULTRASOUND AND FLUOROSCOPIC GUIDANCE, 07/23/2018 2:43 PM: [place] [facility] [place]cellulitis Technique: Using lay terminology, the patient was informed of the benefits of long-term IV access and risks of this procedure, to include but not be limited to: allergies to medications (skin preparatio n agents, local anesthetic, and contrast agent if used), infection, vascular and nerve injury, abnorm al heart rhythm, and possible blood clot formation in the arm related to the catheter. The patient ap peared to comprehend this discussion and signed written consent for this procedure. After consent was obtained, the right arm was prepped with Chloraprep. Venipuncture was achieved und er ultrasound guidance and the introducer sheath was positioned in place using the Seldinger techniqu e with local anesthesia (1% Lidocaine without epinephrine). A 4 [place] double lumen Bard Power PICC S olo PICC catheter was inserted and the tip was positioned with fluoroscopic guidance. Fluoroscopic do cumentation was made with a spot film. The standard dry sterile dressing kit was used to secure the c atheter. Final catheter documentation was with a spot film of the chest that confirmed the catheter t ip was at the cavoatrial junction. The patient tolerated the procedure well and was discharged in stable condition. Standard instruction s regarding wound care precautions and dressing changes were discussed with the patient. Thermometer Production Worker: Dr. Leonardo Tomas M.D. Energy Engineer: None. Complications: None. Impression: Right upper extremity PICC line placement as above.
--- NOTE | 2018-07-23 16:10 | DI ---
INSERTION OF PICC LINE WITH ULTRASOUND AND FLUOROSCOPIC GUIDANCE, 07/23/2018 2:43 PM: History: [facility] [place] ^cellulitis Technique: Using lay terminology, the patient was informed of the benefits of long-term IV access and risks of this procedure, to include but not be limited to: allergies to medications (skin preparatio n agents, local anesthetic, and contrast agent if used), infection, vascular and nerve injury, abnorm al heart rhythm, and possible blood clot formation in the arm related to the catheter. The patient ap peared to comprehend this discussion and signed written consent for this procedure. After consent was obtained, the right arm was prepped with Chloraprep. Venipuncture was achieved und er ultrasound guidance and the introducer sheath was positioned in place using the Seldinger techniqu e with local anesthesia (1% Lidocaine without epinephrine). A 4 [place] double lumen Bard Power PICC S olo PICC catheter was inserted and the tip was positioned with fluoroscopic guidance. Fluoroscopic do cumentation was made with a spot film. The standard dry sterile dressing kit was used to secure the c atheter. Final catheter documentation was with a spot film of the chest that confirmed the catheter t ip was at the cavoatrial junction. The patient tolerated the procedure well and was discharged in stable condition. Standard instruction s regarding wound care precautions and dressing changes were discussed with the patient. Potato Loader: Dr. Leonardo Tomas M.D. Collar Tacker: None. Complications: None. Impression: Right upper extremity PICC line placement as above.
== END 2018-07-23 16:30 | disposition home or self-care (01) | DRG 504 ==
LOC: ER 10:52 → MED/SURG 12:32 → OPS 16:06 → MED/SURG 18:22
PROVIDERS: ADMIT Internal Medicine; ATTEND Internal Medicine